=== PATIENT | female | born 1995 | race Caucasian/White ===

== ENCOUNTER 2017-09-19 18:26 | Emergency (ER) | payer OTHER, SELFPAY ==
[2017-09-19 19:15] VITALS: BP 118/77; PULSE 63; RESP 16; TEMP 36.6; O2SAT 98; BMI 38.4
[2017-09-19 19:26] LABS: UTC Influenza A Antigen Negative (Negative); UTC Influenza B Antigen Negative (Negative)
--- NOTE | 2017-09-19 20:15 | HMH.EDUTC ---
[facility] – [place] Disposition Clinical Impression: Viral URI with cough Disposition: Home, Self-Care Condition on Discharge: Good Instructions: DI for Viral Upper Respiratory Infection -- Adult Additional Instructions: * Monitor Temp. Tylenol and/or Ibuprofen as needed. ER if fever is no less than 101 despite alternating Tylenol and Ibuprofen * Encourage fluids, water, Gatorade, powerade, pedialyte if /toddler/or child * Warm salt water gargles for throat irritation *Warm fluids *Sore throat lozenges *Sleep elevated *humidifier or vaporizer Lots of rest Increase fluids, water, Gatorade, powerade *Bromfed may cause drowsiness. Know how it effect you or your child. Before driving, caring for small children or sending your child to school Follow up IMMEDIATELY for new or worsening of symptoms OR no noticeable improvement over the next 48-72 hours. 911 immediately for any life threatening symptoms such as chest pain or difficulty breathing Prescriptions: Brompheniramine/Pseudoephed/Dm [Bromfed DM Cough Syrup 5mL] 10 ml PO Q4H PRN #200 syrup PRN Reason: Cough Referrals: Camilo Wooten MD [Primary Care Provider] - Time of Disposition: 20:25 Medical Decision Making - Medical Records Medical records reviewed: Yes: I reviewed the patient's medical records. Vital Signs: 09/19/17 19:15 Temperature 97.9 F Temperature Source Temporal Artery Scan Pulse Rate [Radial] 63 Respiratory Rate 16 Blood Pressure [Right Arm] 118/77 Blood Pressure Mean [Right Arm] 90 Blood Pressure Source [Right Arm] Automatic Cuff Blood Pressure Position [Right Arm] Sitting 02 Sat by Pulse Oximetry 98 Oxygen Delivery Method Room Air - Lab Data Lab Results 09/19/17 19:26: Influenza Type A Ag Negative, Influenza Type B Ag Negative - Mal Inquiry Pt receiving controlled substance: No Mal was queried for this patient: No [facility] [place] HPI - General Stated complaint: Body aches, sore throat Mode of Arrival: Ambulatory Source of Information: Patient Limitations: No Limitations Description of Symptoms (Recalled from Triage Doc. by RN): c/o body aches, sore throat and chills HEENT Symptoms (Recalled from RN notes): No Resp Symptoms (Recalled from RN notes): No Skin Symptoms (Recalled from RN notes): No MS Symptoms (Recalled from RN notes): No Functional Status (Recalled from RN notes): na - History of Present Illness Provider Complaint: Patient states that her son had the flu last week and now she is having sinus pain and pressure State that she was worried that she may have caught the flu from him so she wanted to come get checked - Related Data Previous Rx's Medication Instructions Recorded Brompheniramine/Pseudoephed/Dm 10 ml PO Q4H PRN #200 syrup 09/19/17 [Bromfed DM Cough Syrup 5mL] Allergies Allergy/AdvReac Type Severity Reaction Status Date / Time penicillin G [PENICILLIN G] Allergy Unknown -- Unverified 08/18/17 14:57 amoxicillin AdvReac Mild NA-NAUSEA/V Unverified 08/18/17 14:57 OMITING - Worker's Comp Is this a Worker's Comp case?: No [facility] History I have reviewed the patient's past medical history: Yes Medical History: Denies:: Cancer, Diabetes Mellitus Type 1, Diabetes Mellitus Type 2, MRSA Amputation: No - *Social History Smoking Status: Current every day smoker Tobacco Type: cigarettes Alcohol Intake: never - Psychiatric History Expresses thoughts of harming self/others: None Suicide Plan Description: No Plan ROS Obtained: Yes All systems reviewed & no additional complaints Physical Exam - General General appearance: alert, in no apparent distress - ENT ENT exam: Present: mucous membranes moist, TM's normal bilaterally, normal external ear exam - Expanded ENT Exam Nasal speculum exam: Bilateral: other (clear drainage from nose) Comment: throat mildly red, irritated no exudate - Respiratory Respiratory exam: Present: normal lung sounds bilaterally. Absent: respiratory
--- NOTE | 2017-09-19 20:19 | ED_ITS ---
[facility] [place] Disposition Clinical Impression: Viral URI with cough Disposition: Home, Self-Care Condition on Discharge: Good Instructions: DI for Viral Upper Respiratory Infection -- Adult Additional Instructions: * Monitor Temp. Tylenol and/or Ibuprofen as needed. ER if fever is no less than 101 despite alternating Tylenol and Ibuprofen * Encourage fluids, water, Gatorade, powerade, pedialyte if infant/toddler/or child * Warm salt water gargles for throat irritation *Warm fluids *Sore throat lozenges *Sleep elevated *humidifier or vaporizer Lots of rest Increase fluids, water, Gatorade, powerade *Bromfed may cause drowsiness. Know how it effect you or your child. Before driving, caring for small children or sending your child to school Follow up IMMEDIATELY for new or worsening of symptoms OR no noticeable improvement over the next 48-72 hours. 911 immediately for any life threatening symptoms such as chest pain or difficulty breathing Prescriptions: Brompheniramine/Pseudoephed/Dm [Bromfed DM Cough Syrup 5mL] 10 ml PO Q4H PRN # 200 syrup PRN Reason: Cough Referrals: Camilo Wooten MD [Primary Care Provider] - Time of Disposition: 20:25 Medical Decision Making - Medical Records Medical records reviewed: Yes: I reviewed the patient's medical records. Vital Signs: 09/19/17 19:15 Temperature 97.9 F Temperature Source Temporal Artery Scan Pulse Rate [Radial] 63 Respiratory Rate 16 Blood Pressure [Right Arm] 118/77 Blood Pressure Mean [Right Arm] 90 Blood Pressure Source [Right Arm] Automatic Cuff Blood Pressure Position [Right Arm] Sitting 02 Sat by Pulse Oximetry 98 Oxygen Delivery Method Room Air - Lab Data Lab Results 09/19/17 19:26: Influenza Type A Ag Negative, Influenza Type B Ag Negative - Mal Inquiry Pt receiving controlled substance: No Mal was queried for this patient: No [facility] [place] HPI - General Stated complaint: Body aches, sore throat Mode of Arrival: Ambulatory Source of Information: Patient Limitations: No Limitations Description of Symptoms (Recalled from Triage Doc. by RN): c/o body aches, sore throat and chills HEENT Symptoms (Recalled from RN notes): No Resp Symptoms (Recalled from RN notes): No Skin Symptoms (Recalled from RN notes): No MS Symptoms (Recalled from RN notes): No Functional Status (Recalled from RN notes): na - History of Present Illness Provider Complaint: Patient states that her son had the flu last week and now she is having sinus pain and pressure State that she was worried that she may have caught the flu from him so she wanted to come get checked - Related Data Previous Rx's Medication Instructions Recorded Brompheniramine/Pseudoephed/Dm 10 ml PO Q4H PRN #200 syrup 09/19/17 [Bromfed DM Cough Syrup 5mL] Allergies Allergy/AdvReac Type Severity Reaction Status Date / Time penicillin G [PENICILLIN G] Allergy Unknown -- Unverified 08/18/17 14:57 amoxicillin AdvReac Mild NA-NAUSEA/V Unverified 08/18/17 14:57 OMITING - Worker's Comp Is this a Worker's Comp case?: No [facility] History I have reviewed the patient's past medical history: Yes Medical History: Denies:: Cancer, Diabetes Mellitus Type 1, Diabetes Mellitus Type 2, MRSA Amputation: No - *Social History Smoking Status: Current every day smoker Tobacco Type: cig
[2017-09-19 20:38] VITALS: BP 112/70; PULSE 87; RESP 16; TEMP 36.8; O2SAT 97
== END 2017-09-19 20:38 | disposition home or self-care (01) ==
PROVIDERS: Emergency Provider Nurse Practitioner; Family Provider Nurse Practitioner Obstetrics & Gynecology; PCP Internal Medicine Adolescent Medicine
DX: J06.9 Acute upper respiratory infection, unspecified (principal); Z88.1 Allergy status to other antibiotic agents; F17.210 Nicotine dependence, cigarettes, uncomplicated
CPT/HCPCS: 87804; 99201

== ENCOUNTER 2017-10-03 18:33 | Emergency (ER) | payer OTHER, SELFPAY ==
[2017-10-03 18:46] VITALS: BP 126/73; PULSE 72; RESP 16; TEMP 36.9; O2SAT 99; BMI 36.6
[2017-10-03 21:16] VITALS: BP 146/95; PULSE 81; RESP 20; TEMP 36.6; O2SAT 99; BMI 36.6
--- NOTE | 2017-10-03 21:54 | HMH.EDUTC ---
[facility] [place] Clinical Impression: Stiffness of neck Disposition: Home, Self-Care Condition on Discharge: Good Instructions: DI for Muscle Spasm Additional Instructions: * Naproxen every 12 hours with meal as needed for pain/inflammation. * Remember you had a toradol shot, similiar anti-inflammatory in clinic. You won't be able to get that prescription until morning. * No additional anti-inflammatories like motrin, aleve, advil with the above amount of ibuprofen. You CAN still take Tylenol every 4 hours as needed if you need something more for pain. * Ice x15-20 mins 3-4 times a day or moist heat x15-20 mins 3-4 times a day to affected area. May notice it starts to help along with these other medications * Muscle relaxer every 8 hours as needed for muscle spasms but remember, it WILL cause drowsiness. You can NOT take it and drive, operate machinary or care for small children * You had norflex in clinic, a muscle relaxer. You won't be able to get that prescription until in the morning. * Keep this area active. No movement leads to more stiffness. However, take it easy too and avoid heavy lifting, pushing, pulling. * Follow up very important. Immediately for new or worsening symptoms and Thursday if no noticeable improvement at all. Some people require physical therapy for this. we have provided you with a list of providers accepting patients. I would encourage you find him a new primary care provider and make an appt JEFFRY as it can take weeks to get a new patient appointment. In the meantime, follow up in the clinic or ER Prescriptions: Cyclobenzaprine HCl [Flexeril 10mg tablet] 10 mg PO Q8HP PRN #12 tab PRN Reason: Muscle Spasm Naproxen 500 mg PO BID #14 tab Time of Disposition: 22:19 Medical Decision Making Vital Signs: 10/03/17 18:46 10/03/17 21:16 10/03/17 22:10 Temperature 98.4 F 97.8 F 98 F Temperature Source Oral Temporal Artery Scan Pulse Rate 87 Pulse Rate [Right Radial] 72 81 Respiratory Rate 16 20 20 Blood Pressure 122/88 Blood Pressure [Right Arm] 126/73 146/95 Blood Pressure Mean [Right Arm] 90 112 Blood Pressure Source [Right Arm] Automatic Cuff Automatic Cuff Blood Pressure Position [Right Arm] Sitting Sitting 02 Sat by Pulse Oximetry 99 99 Oxygen Delivery Method Room Air Room Air Orders (Tests/Meds): ED MEDICATIONS Discontinued Medications Generic Name Dose Route Start Last Admin Trade Name Luis Antonio PRN Reason Stop Dose Admin Ketorolac Tromethamine 60 mg 10/03/17 21:54 10/03/17 22:02 Toradol 60mg/2ml Vial IM 10/03/17 21:55 60 mg ONCE ONE Administration Orphenadrine Citrate 60 mg 10/03/17 21:54 10/03/17 22:02 Norflex 60mg/2ml Vial IM 10/03/17 21:55 60 mg ONCE ONE Administration - Mal Inquiry Pt receiving controlled substance: No - Reevaluation(s) Time: 22:12 Reevaluation #1: Moving around more in room and no longer in tears. Neck remains laterally flexed but improved, approx 10-15 degrees now. It is starting to ease up . Rvwd POC and follow up. [facility] [place] - General Stated complaint: pain in neck Time Seen by Provider: 10/03/17 21:45 Mode of Arrival: Family Vehicle Source of Information: Patient Limitations: No Limitations Description of Symptoms (Recalled from Triage Doc. by RN): PT STATES SHE HAS BEEN HAVING NECK PAIN FOR 3 DAYS. PT DENIES INJURY. HEENT Symptoms (Recalled from RN notes): No Resp Symptoms (Recalled from RN notes): No Skin Symptoms (Recalled from RN notes): No MS Symptoms (Recalled from RN notes): Yes (NECK PAIN) Functional Status (Recalled from RN notes): NA - History of Present Illness Provider Complaint: c/o neck stiffness and right sided pain since waking up Thursday. Immediate knew she had slept wrong. Pain and ROm unchanged since onset despite tylenol, motrin, advil, heating pad, rice pack, ice, icy hot. 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
[2017-10-03 22:10] VITALS: BP 122/88; PULSE 87; RESP 20; TEMP 36.6; O2SAT 99
== END 2017-10-03 22:20 | disposition home or self-care (01) ==
PROVIDERS: Emergency Provider Nurse Practitioner Family; Family Provider Nurse Practitioner Obstetrics & Gynecology; PCP Internal Medicine Adolescent Medicine
DX: M43.6 Torticollis (principal)
CPT/HCPCS: 96372; 99201

== ENCOUNTER → 2018-02-23 13:15 | Outpatient (REF) | payer OTHER, SELFPAY ==
[2018-02-23 18:53] LABS: Basophils % 0.4 % (0.1-2.0); Eosinophils # 0.2 K/mm3 (0.0-0.4); Eosinophils % 2.4 % (0.1-12.0); Hematocrit 42.9 % (37.0-47.0); Hemoglobin 13.1 g/dL (12.2-16.2); Lymphocytes # 1.7 K/mm3 (0.7-4.5); Lymphocytes % 19.1 K/mm3 (10-50); Mean Corpuscular HGB Conc 30.6 g/dL (31.8-35.4); Mean Corpuscular Hemoglobin 26.1 pg (27.0-31.2); Mean Corpuscular Volume 85.3 fl (81-99); Mean Platelet Volume 8.7 fl (7.4-10.4); Monocytes # 0.5 K/mm3 (0.1-1.0); Monocytes % 5.1 % (1.7-9.3); Neutrophils # 6.7 K/mm3 (1.8-7.8); Neutrophils % 73.1 % (37.0-80.0); Platelet Count 243 K/mm3 (142-424); Red Blood Count 5.03 M/mm3 (4.20-5.40); Red Cell Distribution Width 13.5 % (11.5-17.5); White Blood Count 9.1 K/mm3 (4.8-10.8)
[2018-02-23 20:00] LABS: Alanine Aminotransferase 20 U/L (12-78); Albumin Level 3.8 gm/dL (3.4-5.0); Albumin/Globulin Ratio 1.2 (1.1-1.8); Alkaline Phosphatase 121 U/L (46-116); Anion Gap 16.5 mEq/L (5-15); Aspartate Amino Transferase 18 U/L (15-37); Bilirubin,Total 0.2 mg/dL (0.2-1.0); Blood Urea Nitrogen 10 mg/dL (7-18); Calcium 8.6 mg/dL (8.5-10.1); Carbon Dioxide 21 mmol/L (21.0-32.0); Chloride 106 mmol/L (98-107); Chol/HDL Ratio 5.1 (1-3.5); Cholesterol 164 mg/dL (140-200); Creatinine,Serum 0.88 mg/dL (0.55-1.02); Estimated Glomerular Filt Rate 80 ml/min (>60); GFR (African American) 97 ML/MIN (>60); Globulin 3.3 gm/dl (1.3-3.2); Glucose 129 mg/dL (74-106); HDL Cholesterol 32 mg/dL (29-89); LDL Cholesterol 115 mg/dL (0-130); Potassium 3.5 mmoL/L (3.5-5.1); Sodium 140 mmol/L (136-145); T4 (Thyroxine) 8.2 ug/dl (4.7-13.3); Thyroid Stimulating Hormone 0.98 uIU/ml (0.358-3.740); Total Protein,Serum 7.1 gm/dL (6.4-8.2); Triglycerides 85 mg/dL (30-200); VLDL Cholesterol 17 mg/dL (0-40)
[2018-02-23 20:45] LABS: Hemoglobin A1C 5.3 % (0.0-7.0)
[2018-02-25 13:54] LABS: Vitamin D 25 Hydroxy 33.4 ng/mL (30.0-100.0)
== END ==
LOC: LAB 13:15
PROVIDERS: Visit Provider Nurse Practitioner Family
DX: R73.09 Other abnormal glucose (principal); R53.83 Other fatigue
CPT/HCPCS: 80053; 80061; 82652; 83036; 84436; 84443; 85025

== ENCOUNTER 2019-10-10 19:29 | Inpatient (IN) ==
[2019-10-10 19:51] LABS: Basophils % 0.2 % (0.1-2.0); Eosinophils # 0.1 K/mm3 (0.0-0.4); Eosinophils % 0.6 % (0.1-12.0); Hematocrit 42.8 % (37.0-47.0); Hemoglobin 13.7 g/dL (12.2-16.2); Lymphocytes # 0.8 K/mm3 (0.7-4.5); Lymphocytes % 4.5 % (10-50); Mean Corpuscular HGB Conc 32.1 g/dL (31.8-35.4); Mean Corpuscular Volume 84.4 fl (81-99); Monocytes # 0.3 K/mm3 (0.1-1.0); Monocytes % 1.8 % (1.7-9.3); Neutrophils % 92.9 % (37.0-80.0); Platelet Count 475 K/mm3 (142-424); Red Blood Count 5.07 M/mm3 (4.20-5.40); Red Cell Distribution Width 13.7 % (11.5-17.5); White Blood Count 17.3 K/mm3 (4.8-10.8)
[2019-10-10 20:06] LABS: Alanine Aminotransferase 41 U/L (9-52); Albumin Level 3.3 g/dL (3.4-5.0); Albumin/Globulin Ratio 0.6 (1.1-1.8); Alkaline Phosphatase 101 U/L (46-116); Anion Gap 17.2 mEq/L (5-15); Aspartate Amino Transferase 33 U/L (15-37); Bilirubin,Total 0.4 mg/dL (0.2-1.0); Blood Urea Nitrogen 9 mg/dL (7-18); Calcium 9.9 mg/dL (8.5-10.1); Carbon Dioxide 25 mmol/L (21.0-32.0); Chloride 100 mmol/L (98-107); Globulin 5.8 gm/dl (1.3-3.2); Glucose 170 mg/dL (74-106); Sodium 138 mmol/L (137-145); Total Protein,Serum 9.1 g/dL (6.4-8.2)
[2019-10-10 20:08] LABS: Eosinophils % 1 % (0-3); Lymphocytes % 3 % (10-50); Monocytes % 2 % (2-9); Neutrophils % 94 % (42-76); Total Cells Counted 100
[2019-10-10 20:09] LABS: RBC Morphology Normal
[2019-10-10 20:18] LABS: C-Reactive Protein 24.1 mg/dL (0.0-0.9)
--- NOTE | 2019-10-10 20:36 | Emergency Department Note ---
ED Disposition Clinical Impression: IVDU (intravenous drug user), SIRS (systemic inflammatory response syndrome) CAP (community acquired pneumonia) Qualifiers: Laterality: right Lung location: upper lobe of lung Qualified Code(s): J18.9 - Pneumonia, unspecified organism Disposition: Admitted as Observation Condition on Discharge: Serious Referrals: Provider,Referral, [Primary Care Provider] - - Critical Care Critical Care Time: No Attestation: On 10/10/19, the high probability of a clinically significant, sudden or life threatening deterioration of the following system(s) required my full and direct attention, intervention and personal management. The time I documented below is in addition to time spent performing reported procedures but includes the following listed in this critical care notation. Medical Decision Making - Medical Records Medical records reviewed: Yes: I reviewed the patient's medical records. - Mal Inquiry Pt receiving controlled substance: No Vital Signs: 10/10/19 19:29 10/10/19 19:52 10/10/19 20:37 Temperature 98.1 F 98.0 F Temperature Source Oral Oral Pulse Rate 114 H Pulse Rate [Left Radial] 114 H 107 H Respiratory Rate 16 24 Blood Pressure [Right Arm] 115/69 131/70 Blood Pressure Mean [Right Arm] 84 90 Blood Pressure Source [Right Arm] Automatic Cuff Blood Pressure Position [Right Arm] Sitting 02 Sat by Pulse Oximetry 100 100 Oxygen Delivery Method Room Air Room Air 10/10/19 21:04 Temperature Temperature Source Pulse Rate 116 H Pulse Rate [Left Radial] Respiratory Rate Blood Pressure [Right Arm] Blood Pressure Mean [Right Arm] Blood Pressure Source [Right Arm] Blood Pressure Position [Right Arm] 02 Sat by Pulse Oximetry Oxygen Delivery Method - Lab Data Lab results reviewed: Yes: I reviewed the patient's lab results. Lab Results 10/10/19 19:30: WBC 17.3 H, RBC 5.07, Hgb 13.7, Hct 42.8, MCV 84.4, MCH 27.1, MCHC 32.1, RDW 13.7, Plt Count 475 H, MPV 8.0, Neut % (Auto) 92.9 H, Lymph % (Auto) 4.5 L, Pine % (Auto) 1.8, Eos % (Auto) 0.6, Baso % (Auto) 0.2, Neut # (Auto) 16.0 H, Lymph # (Auto) 0.8, Pine # (Auto) 0.3, Eos # (Auto) 0.1, Baso # (Auto) 0.0, Total Counted 100, Neutrophils % (Manual) 94 H, Lymphocytes % (Manua l) 3 L, Monocytes % (Manual) 2, Eosinophils % (Manual) 1, Platelet Estimate Marked increase, RBC Morphology Normal 10/10/19 19:30: Sodium 138, Potassium 4.2, Chloride 100, Carbon Dioxide 25, Anion Gap 17.2 H, BUN 9, Creatinine 0.84, Estimated Creat Clear 133, Estimated GFR 83, Est GFR ( Amer) 101, Glucose 170 H, Calcium 9.9, Total Bilirubin 0.4, AST 33, ALT 41, Alkaline Phosphatase 101, Troponin I < 0.02, C-Reactive Protein 24.1 H, Total Protein 9.1 H, Albumin 3.3 L, Globulin 5.8 H, Album in/Globulin Ratio 0.6 L 10/10/19 19:30: Lactate 1.1 10/10/19 19:30: ESR 25 H 10/10/19 19:30: Serum HCG, Qual Negative 10/10/19 20:00: Urine Color Yellow, Urine Appearance Clear, Urine pH 6.5, Ur Specific [place] 1.025, Urine Protein Trace, Urine Glucose (UA) 1+, Urine Ketones Negative, Urine Blood 2+, Urine Nitrate Positive, Urine Bilirubin Negative, Urine Urobilinogen 0.2, Ur Leukocyte Esterase Trace, Urine RBC 3-5, Urine WBC 10-20, Ur Squamous Epith Cells Occasional, Urine Bacteria 3+ Result diagrams: 10/10/19 19:30 10/10/19 19:30 Orders (Tests/Meds): ED MEDICATIONS Generic Name Dose Route Start Last Admin Trade Name Yanickq PRN Reason Stop Dose Admin Sodium Chloride 1,000 mls @ 999 mls/hr 10/10/19 19:45 10/10/19 19:49 Sod Chlor 0.9% 1000ml Bag IV 10/10/19 20:45 999 mls/hr .Q1H1M TRISH Administration Metronidazole 500 mg in 100 mls @ 100 mls/hr 10/10/19 21:45 10/10/19 22:21 Flagyl 500mg/100ml Ivpb IV 10/24/19 21:44 100 mls/hr Q8H TRISH Administration Protocol Cefepime HCl 1 gm/ Sodium 50 mls @ 100 mls/hr 10/10/19 21:45 10/10/19 21:55 Chloride IV 10/24/19 21:44 100 mls/hr Q8H TRISH Administration Protocol Sodium Chloride 1,000 mls @ 999 mls/hr 10/10/19 22:00 10/10/19 21:59 Sod Chlor 0.9% 1000ml Bag IV 10/10/19 23:00 999 mls/hr .Q1H1M TRISH Administration Discontinued Medications Generic Name Dose Route Start Last Admin Trade Name Freq PRN Reason Stop Dose Admin Albuterol/Ipratropium 3 ml 10/10/19 20:55 10/10/19 21:09 Duoneb 3ml Neb IH 10/10/19 20:56 3 ml ONCE ONE Administration Vancomycin HCl 1,750 mg/ 250 mls @ 125 mls/hr 10/10/19 21:43 10/10/19 23:46 Sodium Chloride IV 10/10/19 23:42 125 mls/hr ONCE ONE Administration Ioversol 70 ml 10/10/19 21:25 10/10/19 21:27 Rad-Optiray 350 100ml Vial IV 10/10/19 21:26 70 ml ONCE ONE Administration Protocol Methylprednisolone Sodium Succinate 125 mg 10/10/19 19:41 10/10/19 19:49 Solu-Medrol 125mg/2ml Vial IV 10/10/19 19:42 125 mg ONCE ONE Administration Sodium Chloride 40 ml 10/10/19 21:25 10/10/19 21:27 Rad-Ns 50ml Vial IV 10/10/19 21:26 40 ml ONCE ONE Administration Sodium Chloride 10 ml 10/10/19 21:25 10/10/19 21:27 Rad-Saline Flush 10ml Syringe IV 10/10/19 21:26 10 ml ONCE ONE Administration ORDERS Category Date Time Status CT Chest w/PE protocol [CT angio chest] Stat Cat Scan 10/10/19 20:35 Taken XR chest 2V Stat Exams 10/10/19 19:41 Taken Drug Sreen (Blood or Serum) Stat Lab 10/10/19 23:51 Ordered Troponin I Q3H Lab 10/11/19 01:45 Ordered Blood Culture Stat Micro 10/10/19 19:30 Received Urine Culture Stat Micro 10/10/19 20:00 Received - Radiology Data #1 Image(s): Chest Image Reviewed: Yes I reviewed the patient's radiology image Preliminary Findings: Abnormal (cxr rt upper lobe ) - ECG Data Tracing #1 Normal Sinus Rhythm: Yes Ischemic changes: non-specific ST-T wave changes - Physician Consults Physician Consulted: mahogany Reason -: Admission Chest Pain HPI - General Chief Complaint: Chest Pain Stated Complaint: chest pain Time Seen by Provider: 10/10/19 20:00 Mode of Arrival: Ambulatory Source of Information: Patient, Relative, Medical Record Limitations: No Limitations Description of Symptoms (Recalled from ER Triage Doc. by RN): chest pain with non productive cough and shortness of breath for 3-4 days. patient states she has hx of IVDA heroin 4 days ago - History of Present Illness HPI narrative: ivdu over the last few weeks and last use heroin 4 days ago - pt with no hemoptysis - no fever or rash MD complaint: chest pain Onset (ago): day(s) Duration: intermittent Activity at onset: during rest Pain location: right chest Severity: moderate Quality: sharp Context: other (ivdu) Treatments prior to or on arrival for Cardiac Chest Pain: none - JULISSA Score for Non-Stemi Age of Patient: <30 years old Heart Rate: 110-149 bpm Systolic Blood Pressure: 100-119 mmHg Serum Creatinine: 0.80-1.19 mg/dl CHF [place] Class: I-No CHF Other Risk Factors: None Non-Stemi Risk Score: 74 - Related Data On Oral Contraceptives: No Home Medications Medication Instructions Recorded Confirmed No Known Home Medications 10/10/19 10/10/19 Allergies Allergy/AdvReac Type Severity Reaction Status Date / Time penicillin G [PENICILLIN G] Allergy Unknown -- Verified 10/10/19 19:38 codeine Allergy Verified 10/10/19 19:38 amoxicillin AdvReac Mild NA-NAUSEA/V Verified 10/10/19 19:38 OMITING [facility] History - Hepatitis A Screen Drug use history?: Yes High risk sexual behaviors?: No History of sexually transmitted infection?: No Currently employed?: No Childcare worker?: No Do you have indoor plumbing?: Yes Do you have electricity?: Yes Attestation statement:: This patient has been screened for Hepatitis A risk factors. I have reviewed the patient's past medical history: Yes Medical History: Reports:: Anxiety, Gastroesophageal Reflux Disease(GERD), Kidney Stones Denies:: Cancer, Diabetes Mellitus Type 1, Diabetes Mellitus Type 2, Hypertension, MRSA Other Surgeries: Yes: No Previous Surgery, Amputation: No Fractures: No Comment: Kidney Stone removal - Social History Smoking Status: Current every day smoker Tobacco Type: cigarettes # Packs/Day (cigarettes): 1 Alcohol Intake: never Substance Use Type: heroin Last Used Substance: days (ago) Occupational Status: other Housing: apartment Household Members: children - Psychiatric History Pschychiatric History:: Reports:: Anxiety Family Hx:: Diabetes, Cancer, Hypertension, Asthma, Heart Attack ROS Obtained: Yes All systems reviewed & no additional complaints - Constitutional Constitutional: Denies fever(s) - Eyes Eyes: Denies change in vision - ENT Ears, Nose, Mouth, and Throat: Denies sore throat - Cardiovascular Cardiovascular: Denies chest pain - Respiratory Respiratory: No cough, Yes dyspnea - Genitourinary Female Genitourinary: Denies hematuria - Musculoskeletal Musculoskeletal: Denies joint pain - Integumentary/Breasts Skin/Breast: Denies rash - Neurologic Neurologic: Denies seizure-like activity Physical Exam - General General appearance: alert - Head Head exam: normocephalic - Eye Eye exam: Present: PERRL, EOMI - ENT ENT exam: Present: mucous membranes moist - Neck Neck exam: Present: trachea midline - Respiratory Respiratory exam: Present: normal lung sounds bilaterally. Absent: respiratory distress - Cardiovascular Cardiovascular exam: Present: regular rate. Absent: systolic murmur, rubs, gallop - Abdominal Exam Abdominal exam: Present: soft - Extremities Exam Extremities exam: Absent: calf tenderness - Neurological Exam Neurological exam: Present: alert, oriented X3, CN II-XII intact - Psychiatric Psychiatric exam: Present: normal affect - Skin Skin exam: Absent: rash
[2019-10-10 21:35] LABS: Microscopic, Urine URINE MICROSCOPIC (MICROSCOPIC)
[2019-10-10 21:38] LABS: Appearance,Urine CLEAR (Clear); Bilirubin,Urine Negative (Negative); Blood, Urine 2+ (Negative); Color,Urine YELLOW (Yellow); Glucose,Urine (UA) 1+ (Negative); Ketones,Urine Negative (Negative); Leukocyte Esterase,Urine TRACE (Negative); PH,Urine 6.5 (5.0-8.5); Protein,Urine TRACE (Negative); Specific Gravity, Urine 1.025 (1.005-1.030); Urobilinogen,Urine 0.2 EU/dl (0.2)
[2019-10-10 21:48] LABS: Bacteria,Urine 3+ /lpf; Squamous Epithelial Cell,Urine Occasional #/hpf (0-5)
[2019-10-11 07:03] LABS: Basophils % 0.1 % (0.1-2.0); Eosinophils # 0.2 K/mm3 (0.0-0.4); Eosinophils % 1.3 % (0.1-12.0); Hematocrit 35.6 % (37.0-47.0); Lymphocytes % 5.7 % (10-50); Mean Corpuscular HGB Conc 33.4 g/dL (31.8-35.4); Mean Corpuscular Volume 84.6 fl (81-99); Mean Platelet Volume 7.8 fl (7.4-10.4); Monocytes # 0.3 K/mm3 (0.1-1.0); Monocytes % 1.9 % (1.7-9.3); Neutrophils # 15.6 K/mm3 (1.8-7.8); Platelet Count 422 K/mm3 (142-424); Red Blood Count 4.21 M/mm3 (4.20-5.40); Red Cell Distribution Width 13.4 % (11.5-17.5); White Blood Count 17.2 K/mm3 (4.8-10.8)
--- NOTE | 2019-10-11 07:14 | Pharmacy Consult Notes ---
[facility] Pharmacy VTE Monitoring - Patient Demographics Admission date: 10/10/19 Report Date: 10/11/19 Time: 07:13 Allergies/Adverse Reactions: Patient Allergies penicillin G [PENICILLIN G] Allergy (Unknown, Verified 10/10/19 19:38) -- codeine Allergy (Verified 10/10/19 19:38) amoxicillin Adverse Reaction (Mild, Verified 10/10/19 19:38) NA-NAUSEA/VOMITING Height: 1.57 m Weight: 62.823 kg Patient Problems: Current Active Problems CAP (community acquired pneumonia) (Acute) IVDU (intravenous drug user) (Acute) SIRS (systemic inflammatory response syndrome) (Acute) - VTE Risk Labs: VTE Related Lab Results Hgb 13.7 g/dL (12.2-16.2) 10/10/19 19:30 Hct 42.8 % (37.0-47.0) 10/10/19 19:30 Plt Count 475 K/mm3 (142-424) H 10/10/19 19:30 BUN 9 mg/dL (7-18) 10/10/19 19:30 Creatinine 0.84 mg/dL (0.55-1.02) 10/10/19 19:30 Estimated Creat Clear 133 mL/min (50-200) 10/10/19 19:30 VTE Score: 7 VTE Risk Level: Moderate Risk - Prophylaxis VTE Prophylaxis Ordered?: Yes Types of VTE Prophylaxis: TEDS Knee High Location of Applied Device: Bilateral Lower Extremeties
[2019-10-11 07:16] LABS: Anion Gap 13.9 mEq/L (5-15)
[2019-10-11 07:18] LABS: Hemoglobin 11.9 g/dL (12.2-16.2)
--- NOTE | 2019-10-11 07:21 | History & Physical Report ---
*Admission Date: 10/10/19 *Chief complaint: chest pain, SOA, cough *History of present illness: Ms. Singh is a 24-year-old female who presented to the ER yesterday with 1 week of worsening cough, shortness of breath, fever at home. States she began using IV drugs over the past 1 to 2 weeks and has been very clean about it. She states that she is had worsening cough and fatigue during the same time span with chills and sweats at home but did not check her temperature with a thermometer. Upon arrival to the ER she was found to be tachycardic, have an elevated white count, and CAT scan with cavitary lesions in her right lung concerning for pneumonia. This qualified for sepsis criteria. She was admitted to medicine for further management. This morning, patient is pleasant and sitting comfortably in bed on interview. Stable on room air. Not dyspneic on interview. States she is had a cough that is not very productive. Did have some vomiting and some loose stools overnight but is not having significant withdrawal symptoms per her report. States she has not used in about 3 to 4 days. Was using heroin IV. Has a remote history of opioid abuse in her late teens but has been clean for 6 to 7 years per her report. States she fell in with the "wrong crowd" as of late and made bad choices. She also makes a point to state that she educated herself on using cleanly and used clean needles every time, did not share needles, use sterile water, used to clean continence, and only peripheral veins. Afebrile overnight, hemodynamically stable. Remains tachycardic with no events on telemetry. Echo obtained this morning, report pending [facility] History I have reviewed the patient's past medical history: Yes Medical History: Reports:: Anxiety, Gastroesophageal Reflux Disease(GERD), Hypertension, Kidney Stones Denies:: Cancer, Diabetes Mellitus Type 1, Diabetes Mellitus Type 2, MRSA *Have you ever received a pneumonia vaccine?: No *Have you received a flu vaccine this season?: No Other Surgeries: Yes: No Previous Surgery, (x1), Other (ESWL) Amputation: No Fractures: No - *Social History Educational Level: Completed GED/General Educational Development Smoking Status: Current some day smoker Tobacco Type: cigarettes # Packs/Day (cigarettes): 1 Alcohol Intake: never Substance Use Type: marijuana, heroin Last Used Substance: days (ago) *Occupational Status:: unemployed Housing: house Household Members: spouse *Travel in the last 8 weeks: None - Psychiatric History Pschychiatric History:: Reports:: Anxiety Family Hx:: Coronary Artery Disease, Diabetes, Heart Attack, Hyperlipidemia, Hypertension, Thyroid Disorder Review of Systems - Review of Systems Review of systems:: pertinent systems reviewed and negative unless documented below (14pt ROS performed, pertinent positives and negatives as listed in HPI) - *Neurologic Denies seizure-like activity Meds Home Medications Medication Instructions Recorded Confirmed Type No Known Home Medications 10/10/19 10/10/19 History Allergies Allergy/AdvReac Type Severity Reaction Status Date / Time penicillin G [PENICILLIN G] Allergy Unknown -- Verified 10/10/19 19:38 codeine Allergy Verified 10/10/19 19:38 amoxicillin AdvReac Mild NA-NAUSEA/V Verified 10/10/19 19:38 OMITING Exam Vital signs and Labs for Last 24 Hours: Temp Pulse Resp BP Pulse Ox 98.1 F 99 H 18 128/75 97 10/11/19 04:00 10/11/19 04:00 10/11/19 04:00 10/11/19 04:00 10/11/19 04:00 Laboratory Results - last 24 hr 10/10/19 19:30: WBC 17.3 H, RBC 5.07, Hgb 13.7, Hct 42.8, MCV 84.4, MCH 27.1, MCHC 32.1, RDW 13.7, Plt Count 475 H, MPV 8.0, Neut % (Auto) 92.9 H, Lymph % (Auto) 4.5 L, [place] % (Auto) 1.8, Eos % (Auto) 0.6, Baso % (Auto) 0.2, Neut # (Auto) 16.0 H, Lymph # (Auto) 0.8, [place] # (Auto) 0.3, Eos # (Auto) 0.1, Baso # (Auto) 0.0, Total Counted 100, Neutrophils % (Manual) 94 H, Lymphocytes % (Manual) 3 L, Monocytes % (Manual) 2, Eosinophils % (Manual) 1, Platelet Estimate Marked increase, RBC Morphology Normal 10/10/19 19:30: Sodium 138, Potassium 4.2, Chloride 100, Carbon Dioxide 25, Anion Gap 17.2 H, BUN 9, Creatinine 0.84, Estimated Creat Clear 133, Estimated GFR 83, Est GFR ( Amer) 101, Glucose 170 H, Calcium 9.9, Total Bilirubin 0.4, AST 33, ALT 41, Alkaline Phosphatase 101, Troponin I < 0.02, C-Reactive Protein 24.1 H, Total Protein 9.1 H, Albumin 3.3 L, Globulin 5.8 H, Albumin/Globulin Ratio 0.6 L 10/10/19 19:30: Lactate 1.1 10/10/19 19:30: ESR 25 H 10/10/19 19:30: Serum HCG, Qual Negative 10/10/19 20:00: Urine Color Yellow, Urine Appearance Clear, Urine pH 6.5, Ur Specific [place] 1.025, Urine Protein Trace, Urine Glucose (UA) 1+, Urine Ketones Negative, Urine Blood 2+, Urine Nitrate Positive, Urine Bilirubin Negative, Urine Urobilinogen 0.2, Ur Leukocyte Esterase Trace, Urine RBC 3-5, Urine WBC 10-20, Ur Squamous Epith Cells Occasional, Urine Bacteria 3+ 10/11/19 06:55: WBC 17.2 H, RBC 4.21, Hgb 11.9 L D, Hct 35.6 L, MCV 84.6, MCH 28.3, MCHC 33.4, RDW 13.4, Plt Count 422, MPV 7.8, Neut % (Auto) 91.0 H, Lymph % (Auto) 5.7 L, [place] % (Auto) 1.9, Eos % (Auto) 1.3, Baso % (Auto) 0.1, Neut # (Auto) 15.6 H, Lymph # (Auto) 1.0, [place] # (Auto) 0.3, Eos # (Auto) 0.2, Baso # (Auto) 0.0 I & O for Last 24 hours: Intake & Output 10/08/19 10/09/19 10/10/19 10/11/19 23:59 23:59 23:59 23:59 Intake Total 1999 Balance 1999 Weight 81.647 kg 62.823 kg - Constitutional no acute distress, average body habitus - *Routine HEENT Exam Head: Present: normocephalic Eye: Present: EOMI, PERRL ENT: Present: mucous membranes moist - *Routine Neck Exam Present: supple. Absent: lymphadenopathy - *Routine Respiratory Exam Present: crackles (Faint right lung field best heard mid axillary line, otherwise surprisingly clear). Absent: accessory muscle use, rhonchi, wheezes - *Routine Cardiovascular Exam Present: RRR, Normal S1, Normal S2. Absent: murmur - *Routine Abdominal Exam Present: soft, normoactive bowel sounds, tenderness (Diffuse tenderness, positive CVA tenderness bilaterally) - *Routine Extremities Exam Absent: cyanosis, clubbing, edema Comments: Numerous track gardner on bilateral forearms and hands with ecchymoses. 3-4 bruises and lesions on bilateral lower legs. No injection gardner on neck or upper arm/leg - *Routine Skin Exam Present: warm. Absent: rash Comments: See extremity exam - *Routine Neurological Exam Present: alert, oriented X3 Assessment and Plan (1) Sepsis Current visit: Yes Status: Acute Category: Medical Code(s): A41.9 - Sepsis, unspecified organism (2) IVDU (intravenous drug user) Current visit: Yes Status: Acute Category: Social Hx Code(s): F19.90 - Other psychoactive substance use, unspecified, uncomplicated (3) Cavitary lesion of lung Current visit: Yes Status: Acute Category: Medical Code(s): J98.4 - Other disorders of lung (4) Heroin abuse Current visit: Yes Status: Acute Category: Medical Code(s): F11.10 - Opioid abuse, uncomplicated - Assessment and plan all Dx Assessment and Plan for all problems:: 24-year-old female with presentation consisting of fever at home, not confirmed in the ER, shortness of breath, cough, finding of sepsis on initial work-up and cavitary lung lesion. She is a IV drug user with recent use over the past 1 to 2 weeks. Has 2 minor criteria for [place] criteria. Echo obtained today, formal read pending however preliminary shows no valvular vegetations and has no stigmata on exam of endocarditis. No murmur on exam either. Elevated inflammatory markers, elevated white count, culture still pending at this time. Current diagnosis is sepsis due to community-acquired pneumonia however differential still consists of potential endocarditis and substance abuse with withdrawal symptoms. -Initiated on empiric antibiotics consisting of vancomycin, cefepime, Flagyl in the setting of having a penicillin allergy. - Not requiring supplemental oxygen at this time, saturation greater than 92% while awake if needs oxygen or greater than 88% while asleep. -Regular diet -Monitoring for withdrawal symptoms -Monitor on telemetry overnight however no ectopic beats or arrhythmias, will DC telemetry -Blood and urine culture pending -Given concern for UTI and CVA tenderness, CT abdomen pelvis pending - Potential transfer in the setting of needing ID consult and potential ongoing evolving lung infection. -Patient clinically stable this morning, condition remains guarded, prognosis fair.
[2019-10-11 07:31] LABS: Calcium 8.9 mg/dL (8.5-10.1)
[2019-10-11 07:46] LABS: Lymphocytes % 8 % (10-50); Monocytes % 1 % (2-9); Neutrophils % 90 % (42-76); RBC Morphology Normal; Total Cells Counted 100
--- NOTE | 2019-10-11 08:06 | Pharmacy Consult Notes ---
- Pharmacy Consult Date: 10/11/19 Time: 08:06 Referring provider: DR. REBOLLEDO Reason for Consult:: VANCOMYCIN DOSING Allergies and ADEs:: Allergies Allergy/AdvReac Type Severity Reaction Status Date / Time penicillin G [PENICILLIN G] Allergy Unknown -- Verified 10/10/19 19:38 codeine Allergy Verified 10/10/19 19:38 amoxicillin AdvReac Mild NA-NAUSEA/V Verified 10/10/19 19:38 OMITING Home Medications:: Home Medications Medication Instructions Recorded Confirmed Type No Known Home Medications 10/10/19 10/10/19 History Height: 1.57 m Weight: 62.823 kg Laboratory Results:: Laboratory Results - last 24 hr 10/10/19 19:30: WBC 17.3 H, RBC 5.07, Hgb 13.7, Hct 42.8, MCV 84.4, MCH 27.1, MCHC 32.1, RDW 13.7, Plt Count 475 H, MPV 8.0, Neut % (Auto) 92.9 H, Lymph % (Auto) 4.5 L, [place] % (Auto) 1.8, Eos % (Auto) 0.6, Baso % (Auto) 0.2, Neut # (Auto) 16.0 H, Lymph # (Auto) 0.8, [place] # (Auto) 0.3, Eos # (Auto) 0.1, Baso # (Auto) 0.0, Total Counted 100, Neutrophils % (Manual) 94 H, Lymphocytes % (Manual) 3 L, Monocytes % (Manual) 2, Eosinophils % (Manual) 1, Platelet Estimate Marked increase, RBC Morphology Normal 10/10/19 19:30: Sodium 138, Potassium 4.2, Chloride 100, Carbon Dioxide 25, Anion Gap 17.2 H, BUN 9, Creatinine 0.84, Estimated Creat Clear 133, Estimated GFR 83, Est GFR ( Amer) 101, Glucose 170 H, Calcium 9.9, Total Bilirubin 0.4, AST 33, ALT 41, Alkaline Phosphatase 101, Troponin I < 0.02, C-Reactive Protein 24.1 H, Total Protein 9.1 H, Albumin 3.3 L, Globulin 5.8 H, Albumin/Globulin Ratio 0.6 L 10/10/19 19:30: Lactate 1.1 10/10/19 19:30: ESR 25 H 10/10/19 19:30: Serum HCG, Qual Negative 10/10/19 20:00: Urine Color Yellow, Urine Appearance Clear, Urine pH 6.5, Ur Specific [place] 1.025, Urine Protein Trace, Urine Glucose (UA) 1+, Urine Ketones Negative, Urine Blood 2+, Urine Nitrate Positive, Urine Bilirubin Negative, Urine Urobilinogen 0.2, Ur Leukocyte Esterase Trace, Urine RBC 3-5, Urine WBC 10-20, Ur Squamous Epith Cells Occasional, Urine Bacteria 3+ 10/11/19 06:55: WBC 17.2 H, RBC 4.21, Hgb 11.9 L D, Hct 35.6 L, MCV 84.6, MCH 28.3, MCHC 33.4, RDW 13.4, Plt Count 422, MPV 7.8, Neut % (Auto) 91.0 H, Lymph % (Auto) 5.7 L, [place] % (Auto) 1.9, Eos % (Auto) 1.3, Baso % (Auto) 0.1, Neut # (Auto) 15.6 H, Lymph # (Auto) 1.0, [place] # (Auto) 0.3, Eos # (Auto) 0.2, Baso # (Auto) 0.0, Total Counted 100, Neutrophils % (Manual) 90 H, Lymphocytes % (Manual) 8 L, Atypical Lymphs % 1.0, Monocytes % (Manual) 1 L, Platelet Estimate Slight increase, RBC Morphology Normal 10/11/19 06:55: Sodium 146 H, Potassium 3.9, Chloride 112 H, Carbon Dioxide 24, Anion Gap 13.9, BUN 7, Creatinine 0.70, Estimated Creat Clear 123, Estimated GFR 103, Est GFR ( Amer) 124 D, Glucose 168 H, Calcium 8.9 D 10/11/19 06:55: Troponin I < 0.02 Medical History: Reports:: Anxiety, Gastroesophageal Reflux Disease(GERD), Hypertension, Kidney Stones Denies:: Cancer, Diabetes Mellitus Type 1, Diabetes Mellitus Type 2, MRSA Assessment and Plan (1) Sepsis Current visit: Yes Status: Acute Category: Medical Code(s): A41.9 - Sepsis, unspecified organism (2) IVDU (intravenous drug user) Current visit: Yes Status: Acute Category: Social Hx Code(s): F19.90 - Other psychoactive substance use, unspecified, uncomplicated - Assessment and plan all Dx Assessment and Plan for all problems:: BASED ON PATIENT'S FACTORS, RECOMMEND VANCOMYCIN 1250 MG Q12H AT THIS TIME. PATIENT RECEIVED VANCOMYCIN 1750 MG IN ER OVERNIGHT. PATIENT ALSO RECEIVING CEFEPIME AND FLAGYL.
--- NOTE | 2019-10-11 11:40 | Discharge Summary ---
General - General Admission date:: 10/10/19 Discharge date: 10/11/19 HPI HPI: Ms. Singh is a 24-year-old female who presented to the ER yesterday with 1 week of worsening cough, shortness of breath, fever at home. States she began using IV drugs over the past 1 to 2 weeks and has been very clean about it. She states that she is had worsening cough and fatigue during the same time span with chills and sweats at home but did not check her temperature with a thermometer. Upon arrival to the ER she was found to be tachycardic, have an elevated white count, and CAT scan with cavitary lesions in her right lung concerning for pneumonia. This qualified for sepsis criteria. She was admitted to medicine for further management. This morning, patient is pleasant and sitting comfortably in bed on interview. Stable on room air. Not dyspneic on interview. States she is had a cough that is not very productive. Did have some vomiting and some loose stools overnight but is not having significant withdrawal symptoms per her report. States she has not used in about 3 to 4 days. Was using heroin IV. Has a remote history of opioid abuse in her late teens but has been clean for 6 to 7 years per her report. States she fell in with the "wrong crowd" as of late and made bad choices. She also makes a point to state that she educated herself on using cleanly and used clean needles every time, did not share needles, use sterile water, used to clean continence, and only peripheral veins. Afebrile overnight, hemodynamically stable. Remains tachycardic with no events on telemetry. Echo obtained this morning, report pending Hospital Course Hospital Course: Patient admitted with broad-spectrum empiric antibiotics for sepsis and cavitary pneumonia with initial suspicion for endocarditis. Hemodynamically stable on telemetry overnight. Some mild nausea and emesis overnight but no significant withdrawal symptoms. Pleasant on interview this morning. Blood cultures and urine culture still pending. Patient accepted to [place] for transfer. CT abdomen pelvis not obtained prior to transfer. Echo obtained, when report finalized, will plan to send to [place]. Medically stable for transfer to higher level of care. Would benefit from infectious disease consultation and substance abuse counseling. Further management per [facility]. Objective Vital signs: Temp Pulse Resp BP Pulse Ox 98.2 F 90 16 119/74 100 02/11/20 07:58 10/11/19 08:00 10/11/19 07:58 10/11/19 07:58 10/11/19 07:58 Narrative: See HPI for exam as they were performed same day Results Labs on day of discharge: Labs from last 24 hours 10/11/19 10/11/19 10/11/19 06:55 06:55 06:55 WBC 17.2 H RBC 4.21 Hgb 11.9 L D Hct 35.6 L MCV 84.6 MCH 28.3 MCHC 33.4 RDW 13.4 Plt Count 422 MPV 7.8 Neut % (Auto) 91.0 H Lymph % (Auto) 5.7 L [place] % (Auto) 1.9 Eos % (Auto) 1.3 Baso % (Auto) 0.1 Neut # (Auto) 15.6 H Lymph # (Auto) 1.0 [place] # (Auto) 0.3 Eos # (Auto) 0.2 Baso # (Auto) 0.0 Total Counted 100 Neutrophils % (Manual) 90 H Lymphocytes % (Manual) 8 L Atypical Lymphs % 1.0 Monocytes % (Manual) 1 L Eosinophils % (Manual) Platelet Estimate Slight increase RBC Morphology Normal ESR Sodium 146 H Potassium 3.9 Chloride 112 H Carbon Dioxide 24 Anion Gap 13.9 BUN 7 Creatinine 0.70 Estimated Creat Clear 123 Estimated GFR 103 Est GFR ( Amer) 124 D Glucose 168 H Lactate Calcium 8.9 D Total Bilirubin AST ALT Alkaline Phosphatase Troponin I < 0.02 C-Reactive Protein Total Protein Albumin Globulin Albumin/Globulin Ratio Serum HCG, Qual Urine Color Urine Appearance Urine pH Ur Specific [place] Urine Protein Urine Glucose (UA) Urine Ketones Urine Blood Urine Nitrate Urine Bilirubin Urine Urobilinogen Ur Leukocyte Esterase Urine RBC Urine WBC Ur Squamous Epith Cells Urine Bacteria 10/10/19 10/10/19 10/10/19 20:00 19:30 19:30 WBC RBC Hgb Hct MCV MCH MCHC RDW Plt Count MPV Neut % (Auto) Lymph % (Auto) [place] % (Auto) Eos % (Auto) Baso % (Auto) Neut # (Auto) Lymph # (Auto) [place] # (Auto) Eos # (Auto) Baso # (Auto) Total Counted Neutrophils % (Manual) Lymphocytes % (Manual) Atypical Lymphs % Monocytes % (Manual) Eosinophils % (Manual) Platelet Estimate RBC Morphology ESR 25 H Sodium Potassium Chloride Carbon Dioxide Anion Gap BUN Creatinine Estimated Creat Clear Estimated GFR Est GFR ( Amer) Glucose Lactate Calcium Total Bilirubin AST ALT Alkaline Phosphatase Troponin I C-Reactive Protein Total Protein Albumin Globulin Albumin/Globulin Ratio Serum HCG, Qual Negative Urine Color Yellow Urine Appearance Clear Urine pH 6.5 Ur Specific [place] 1.025 Urine Protein Trace Urine Glucose (UA) 1+ Urine Ketones Negative Urine Blood 2+ Urine Nitrate Positive Urine Bilirubin Negative Urine Urobilinogen 0.2 Ur Leukocyte Esterase Trace Urine RBC 3-5 Urine WBC 10-20 Ur Squamous Epith Cells Occasional Urine Bacteria 3+ 10/10/19 10/10/19 10/10/19 19:30 19:30 19:30 WBC 17.3 H RBC 5.07 Hgb 13.7 Hct 42.8 MCV 84.4 MCH 27.1 MCHC 32.1 RDW 13.7 Plt Count 475 H MPV 8.0 Neut % (Auto) 92.9 H Lymph % (Auto) 4.5 L [place] % (Auto) 1.8 Eos % (Auto) 0.6 Baso % (Auto) 0.2 Neut # (Auto) 16.0 H Lymph # (Auto) 0.8 [place] # (Auto) 0.3 Eos # (Auto) 0.1 Baso # (Auto) 0.0 Total Counted 100 Neutrophils % (Manual) 94 H Lymphocytes % (Manual) 3 L Atypical Lymphs % Monocytes % (Manual) 2 Eosinophils % (Manual) 1 Platelet Estimate Marked increase RBC Morphology Normal ESR Sodium 138 Potassium 4.2 Chloride 100 Carbon Dioxide 25 Anion Gap 17.2 H BUN 9 Creatinine 0.84 Estimated Creat Clear 133 Estimated GFR 83 Est GFR ( Amer) 101 Glucose 170 H Lactate 1.1 Calcium 9.9 Total Bilirubin 0.4 AST 33 ALT 41 Alkaline Phosphatase 101 Troponin I < 0.02 C-Reactive Protein 24.1 H Total Protein 9.1 H Albumin 3.3 L Globulin 5.8 H Albumin/Globulin Ratio 0.6 L Serum HCG, Qual Urine Color Urine Appearance Urine pH Ur Specific [place] Urine Protein Urine Glucose (UA) Urine Ketones Urine Blood Urine Nitrate Urine Bilirubin Urine Urobilinogen Ur Leukocyte Esterase Urine RBC Urine WBC Ur Squamous Epith Cells Urine Bacteria DS: Diagnosis - Discharge Diagnosis (1) Sepsis Status: Acute (2) IVDU (intravenous drug user) Status: Acute (3) Cavitary lesion of lung Status: Acute (4) Heroin abuse Status: Acute Discharge Plan - Patient Discharge Instructions ACTIVITY: Continue current activity DIET: continue same diet Patient Instructions: Pneumonia-Adult, DI for Pneumonia -- Adult, DI for Drug Abuse and Drug Addiction, DI for Chest Pain - Follow up Plan Disposition: Xfer Short-Term Hosp Prescriptions/Medication Reconciliation: New Acetaminophen [Acetaminophen 325mg tab] 650 mg PO Q4HP PRN tablet PRN Reason: As Needed For Fever Or Pain Sodium Chloride For Inhalation [Sodium Chloride 3% 15mL Neb] 3 ml IH ONCE PRN vial.neb PRN Reason: INDUCE SPUTUM COLLECTION Ketorolac Tromethamine [Toradol 30mg/mL vial] 30 mg IV Q6HP PRN vial PRN Reason: Moderate Pain Cefepime HCl [Maxipime 1gm Vial] 1 gm IV Q8H vial Metronidaz/Sod Chl [Flagyl 500mg/100mL IVPB] 500 mg IV Q8H piggyback Vancomycin HCl [Vancomycin 1000mg Vial] 1,250 mg IV Q12H vial 0.9 % Sodium Chloride [Saline Flush 10mL syringe] 10 ml IV NEEDED PRN syringe PRN Reason: Maintain Iv Site Ondansetron HCl/Pf [Zofran 4mg/2mL vial] 4 mg IV Q8HP PRN vial PRN Reason: Nausea - Problem Reconciliation Problems Reviewed?: Yes
--- NOTE | 2019-10-11 17:19 | Electrocardiograph Report ---
APPROVED REPORT Exam: Resting ECG HR:113 bpm ECG Measurements Heart Rate 113 AXES KS 152 P 58 QRSd 82 QRS 54 QT 314 T58 QTc 430 <Conclusion> Sinus tachycardia Otherwise normal ECG Electronically signed by : Aguilar Harmon, 10/11/2019 17:19:26
--- NOTE | 2019-10-11 20:48 | Cardiology Report ---
APPROVED REPORT EXAM: Comprehensive 2D, Doppler, and color-flow Echocardiogram Chargeback Analyst: Marylin Childs RDCS Ht: 5 ft 2 in Wt: 180lbs BSA: 1.83 BP: 128/75 mmHg Indications: Chest Pain, Shortness of Breath, Endocarditis,SUBSTANCE ABUSE 2D Dimensions LVOT 1.98 cm (M/F) 1.5-2.5 M-Mode Dimensions RVDd 2.74 cm (0.9-2.6)LVDd 4.32 cm (3.5-5.7) LVDs 2.88 cm (3.5-5.7)IVSd 0.74 cm (0.6-1.1) PWd 0.84 cm (0.6-1.1)EF (Teich) 62.30% FS 33.30% EDV (Teich) 84.00 mL ESV (Teich) 31.70 mL LV Diastology E/A Ratio 1.37 Mitral Valve MV A Velocity 58.00 (40-130 cm/s) Left Ventricle Left atrium is normal size, left ventricle is normal size, there is no concentric left ventricular hypertrophy, visually estimated ejection fraction 55% with no regional wall motion abnormality. Diastolic parameters are within normal range. Right Ventricle Right atrium and right ventricle are normal size and contractility. Aortic Valve Aortic valve is grossly normal, there is no aortic stenosis or aortic insufficiency. Mitral Valve Mitral valve is grossly normal, there is trace mitral regurgitation. Tricuspid Valve Tricuspid valve is grossly normal, there is trace tricuspid regurgitation. Pulmonic Valve Pulmonic valve is grossly normal. Great Vessels Aortic root is normal size. Pericardium No significant pericardial effusion noted. Conclusion 1. Normal left ventricular size, preserved left ventricular systolic function, visually estimated ejection fraction 55% with no regional wall motion abnormality. Diastolic parameters are within normal range. 2. Trace mitral and tricuspid regurgitation. 3. No significant pericardial effusion noted 4. No obvious valvular vegetation identified with this study. Electronically signed by : Shlomo Retana, 10/11/2019 20:48:10
[2019-10-12 06:22] LABS: Hepatitis B Surface Antigen Negative (Negative)
[2019-10-12 16:29] LABS: Hepatitis C Antibody <0.1 s/co ratio (0.0-0.9)
[2019-10-13 10:27] LABS: HIV Screen 4th Generation wRfx Non Reactive (Non Reactive)
== END 2019-10-11 14:03 | disposition short-term general hospital (02) | DRG 871 ==
LOC: 2ND 19:29 → ER 19:29 → OBSVTOIN 23:59 → 2ND 10-11 00:56
PROVIDERS: ADMIT Internal Medicine Adolescent Medicine; ATTEND Internal Medicine Adolescent Medicine
CPT/HCPCS: 36415; 71020; 71046; 71275; 80048; 80053; 80074; 80306; 81001; 83605; 84484; 84703; 85007; 85025; 85651; 86140; 86480; 86703; 87040; 87086; 93005; 93306; 96365; 96366; 96375; 99285; G0432; J0692; J2405; J3370; Q9967

== ENCOUNTER 2020-01-16 11:36 | Emergency (ER) | payer OTHER, SELFPAY ==
[2020-01-16 11:42] VITALS: BP 151/88; PULSE 108; RESP 18; TEMP 37.1; O2SAT 100; BMI 23.8
--- NOTE | 2020-01-16 12:08 | PC.NURSE ---
confirmed dosing on Vancomycin with pharmacy, spoke with Jaime. States he will mix medication and bring it down to ER.
--- NOTE | 2020-01-16 14:31 | PC.NURSE ---
Pt and visitor sleeping the bed at this time.
--- NOTE | 2020-01-16 14:54 | HMH.EDSKAF ---
ED Disposition Clinical Impression: Cellulitis Disposition: Home, Self-Care Condition on Discharge: Good Instructions: DI for Skin Abscess Prescriptions: clindamycin HCL [Clindamycin HCl 300mg Cap] 300 mg PO Q6 10 Days #40 cap Transmission Status: Pending to [facility] Referrals: Provider,Referral, [Primary Care Provider] - - Critical Care Critical Care Time: No Attestation: On 01/16/20, the high probability of a clinically significant, sudden or life threatening deterioration of the following system(s) required my full and direct attention, intervention and personal management. The time I documented below is in addition to time spent performing reported procedures but includes the following listed in this critical care notation. Medical Decision Making - Medical Records Medical records reviewed: Yes: I reviewed the patient's medical records. - Mal Inquiry Pt receiving controlled substance: No Vital Signs: 01/16/20 11:42 Temperature 98.7 F Temperature Source Oral Pulse Rate [Left Radial] 108 H Respiratory Rate 18 Blood Pressure [Left Arm] 151/88 H Blood Pressure Mean [Left Arm] 109 Blood Pressure Source [Left Arm] Automatic Cuff Blood Pressure Position [Left Arm] Sitting 02 Sat by Pulse Oximetry 100 Oxygen Delivery Method Room Air - Lab Data Lab results reviewed: Yes: I reviewed the patient's lab results. Orders (Tests/Meds): ED MEDICATIONS Discontinued Medications Generic Name Dose Route Start Last Admin Trade Name Freq PRN Reason Stop Dose Admin Diphenhydramine HCl 25 mg 01/16/20 11:57 01/16/20 13:28 Benadryl 50mg/1ml Vial IV 01/16/20 11:58 Not Given ONCE ONE Vancomycin HCl 1,250 mg/ 250 mls @ 125 mls/hr 01/16/20 11:55 01/16/20 13:28 Sodium Chloride IV 01/16/20 13:54 125 mls/hr ONCE ONE Administration Protocol Clindamycin Phosphate 900 mg/ 106 mls @ 100 mls/hr 01/16/20 11:56 01/16/20 12:13 Sodium Chloride IV 01/16/20 12:59 100 mls/hr ONCE ONE Administration Protocol Skin/Abscess/FB HPI - General Chief complaint: Skin/Abscess/Foreign Body Stated complaint: knot on right arm Time Seen by Provider: 01/16/20 14:54 Mode of Arrival: Ambulatory Source of Information: Patient Limitations: No Limitations Description of Symptoms (Recalled from ER Triage Doc. by RN): Pt reports a knot on R arm. Pt has a raised area that is warm to the touch in R AC area. Pt reports has been raised and painful for 4-5 days. Pt reports area has been sore since shooting up in this area. Pt denies fever, redness or drainage. - History of Present Illness HPI narrative: 24-year-old female presents the ED with an abscess on the right antecubital fossa. Patient is a IV drug user she said she was either using meth or heroin and she now has a hard abscess on the antecubital fossa with no redness or swelling but it is painful. Patient denies any recent fever shakes or chills. Patient denies any cough or shortness of breath. - Related Data Previous Rx's Medication Instructions Recorded 0.9 % Sodium Chloride [Saline 10 ml IV NEEDED PRN syringe 10/11/19 Flush 10mL syringe] Acetaminophen [Acetaminophen 325mg 650 mg PO Q4HP PRN tab 10/11/19 tab] Cefepime HCl [Maxipime 1gm Vial] 1 gm IV Q8H vial 10/11/19 Ketorolac Tromethamine [Toradol 30 mg IV Q6HP PRN vial 10/11/19 30mg/mL vial] Metronidaz/Sod Chl [Flagyl 500 mg IV Q8H piggyback 10/11/19 500mg/100mL IVPB] Ondansetron HCl/Pf [Zofran 4mg/2mL 4 mg IV Q8HP PRN vial 10/11/19 vial] Sodium Chloride For Inhalation 3 ml IH ONCE PRN vial.neb 10/11/19 [Sodium Chloride 3% 15mL Neb] Vancomycin HCl [Vancomycin 1000mg 1,250 mg IV Q12H vial 10/11/19 Vial] Azithromycin 250 mg PO DAILY #5 tab 10/15/19 Cefdinir [Omnicef 300mg Capsule] 300 mg PO BID #20 cap 10/15/19 predniSONE [Prednisone 10mg Tab 10 mg PO UD DOSE PK #1 pack 10/15/19 Dose-Pack] clindamycin HC
[2020-01-16 15:35] VITALS: BP 139/89; PULSE 105; RESP 20; TEMP 37.1; O2SAT 100
== END 2020-01-16 15:35 | disposition home or self-care (01) ==
PROVIDERS: Emergency Provider Family Medicine
DX: L03.111 Cellulitis of right axilla (principal); K21.9 Gastro-esophageal reflux disease without esophagitis; F41.9 Anxiety disorder, unspecified; F11.10 Opioid abuse, uncomplicated; F19.90 Other psychoactive substance use, unspecified, uncomplicated; I10 Essential (primary) hypertension; F17.210 Nicotine dependence, cigarettes, uncomplicated; Z88.0 Allergy status to penicillin; Z79.899 Other long term (current) drug therapy
CPT/HCPCS: 96365; 96367; 99282; J3370

== ENCOUNTER 2020-06-06 09:18 | Emergency (ER) | payer OTHER, SELFPAY ==
[2020-06-06 09:19] VITALS: BP 114/83; PULSE 90; RESP 19; TEMP 37; O2SAT 99; BMI 28.9
--- NOTE | 2020-06-06 10:04 | HMH.EDUTC ---
[facility] [place] Clinical Impression: Viral URI with cough Disposition: Home, Self-Care Condition on Discharge: Good Instructions: Sore Throat, Cough, DI for Nasal Congestion Additional Instructions: *Monitor Temp, Over the counter Motrin or Tylenol as directed/as needed Tylenol every 4 hours and Motrin every 6 hours (as long as your family doctor has told you that you can take it) for fever or pain. and straight to ER if unable to lower temp less than 101.0 after medication given *Warm salt water gargles may help to soothe the throat *Throat Lozenges *Warm fluids like tea with honey may help to soothe the throat *Sleep elevated *Humidifier/Vaporizer *Flonase 2 sprays in each nostril daily but be aware that it may take 2-3 days before you notice improvement *Bromfed may cause drowsiness. Know how it effects you (your child) before driving, caring for small child, or sending your child to school. Not other antihistamines/allergy medications while taking bromfed Your throat swab was sent for culture. Those results are typically sent to your primary care. Be sure to follow up in 2-3 days with your family doctor/primary care physician if no improvement so they can review those result and treat if necessary. If you don?t have a primary care doctor, I recommend you get one but in the mean time, you will have to return to a walk in clinic Follow up IMMEDIATELY for new or worsening symptoms or no Noticeable improvement over the next 48-72 hours. 911 for difficulty breathing or swallowing You was tested for today for COVID19 your test result should be back later this evening, you may call back later this evening to see if your test results are back and the result You was given a handout with instructions for Self Quarantine and Self isolation for while you wait on test results and what to do if they are positive Prescriptions: Brompheniramine/Pseudoephed/Dm [Bromfed Dm Cough Syrup] 5 - 10 ml PO Q46H PRN #150 ml PRN Reason: Cough Transmission Status: Received by [facility] Fluticasone Propionate [Flonase 50mcg nasal spray 16gm] 1 spr NS DAILY #1 bottle Transmission Status: Received by [facility] Referrals: PCP,No [Primary Care Provider] - As needed Forms: Work/School Release Time of Disposition: 10:24 Medical Decision Making - Mal Inquiry Pt receiving controlled substance: No Mal was queried for this patient: No Vital Signs: 06/06/20 09:19 06/06/20 10:34 Temperature 98.6 F 98.6 F Temperature Source Oral Oral Pulse Rate 90 Pulse Rate [Left Radial] 90 Respiratory Rate 19 19 Blood Pressure 114/83 Blood Pressure [Right Arm] 114/83 Blood Pressure Mean [Right Arm] 93 Blood Pressure Source Automatic Cuff Blood Pressure Source [Right Arm] Automatic Cuff Blood Pressure Position Sitting Blood Pressure Position [Right Arm] Sitting 02 Sat by Pulse Oximetry 99 Oxygen Delivery Method Room Air Room Air - Lab Data Lab results reviewed: Yes: I reviewed the patient's lab results. Lab Results 06/06/20 09:39: Strep Scn Rapid Clinic Negative Orders (Tests/Meds): ORDERS Category Date Time Status Covid-19 Nasal PCR ([facility]) Routine Lab 06/06/20 09:45 Received Strep Screen Confirmation Stat Micro 06/06/20 09:39 Received Medical Decision Narrative: Patient denies risk of [facility] [place] - General Stated complaint: sore throat chills Time Seen by Provider: 06/06/20 09:25 Mode of Arrival: Ambulatory Source of Information: Patient Limitations: No Limitations Description of Symptoms (Recalled from Triage Doc. by RN): c/o cough, sore throat and shortness of breath HEENT Symptoms (Recalled from RN notes): Yes Resp Symptoms (Recalled from RN notes): Yes (short of breath) Skin Symptoms (Recalled from RN notes): No MS Symptoms (Recalled from RN notes): No Functional Status (Recalled from RN notes): wnl - History of Present Illness Provider Complaint: Patient states that she has bee
[2020-06-06 10:12] LABS: UTC Strep Screen (Rapid) Negative (Negative)
[2020-06-06 10:34] VITALS: BP 114/83; PULSE 90; RESP 19; TEMP 37; O2SAT 99
== END 2020-06-06 10:35 | disposition home or self-care (01) ==
PROVIDERS: Emergency Provider Nurse Practitioner
DX: J06.9 Acute upper respiratory infection, unspecified (principal); Z20.828 Contact with and (suspected) exposure to other viral communicable diseases; I10 Essential (primary) hypertension; F41.9 Anxiety disorder, unspecified; K21.9 Gastro-esophageal reflux disease without esophagitis; F17.210 Nicotine dependence, cigarettes, uncomplicated; Z87.442 Personal history of urinary calculi
CPT/HCPCS: 87880; 99202; U0003

== ENCOUNTER 2024-08-23 15:20 | Emergency (ER) | payer OTHER, SELFPAY ==
[2024-08-23 15:37] VITALS: BP 0/0; PULSE 0; RESP 0; TEMP -17.7; TEMP 0
== END 2024-08-23 15:37 | disposition left against medical advice (07) ==
LOC: UTC 15:23
PROVIDERS: Emergency Provider Nurse Practitioner Family
DX: Z53.21 Procedure and treatment not carried out due to patient leaving prior to being seen by health care provider (principal)

== ENCOUNTER 2024-08-23 17:00 | Emergency (ER) | payer OTHER, SELFPAY ==
--- NOTE | 2024-08-23 17:07 | EXP.UTC ---
Discharge Plan Disposition Patient Disposition: Home, Self-Care Condition: Good Prescriptions Prescriptions: New [id number] [Bromfed DM] 2-30-10 mg/5 mL Syrup 5 ml PO Q6H PRN (Reason: Cough) Qty: 240 0RF azithromycin [Zithromax] 250 mg tablet 250 mg PO UD DOSE PK Qty: 6 0RF Rx Instructions: Take two (2) tablets today, then one (1) tablet days #2 thru #5 Referrals Follow up/Referrals: Provider,Referral, MD [Primary Care Provider] - See instructions Activity Restrictions/Add. Instructions Additional Instructions/Restrictions: Drink plenty of fluids. Take tylenol or ibuprofen for pain or fever. Take the medications as directed. Follow up with your regular doctor. GO TO THE ER FOR ANY WORSENING SYMPTOMS Clinical Impressions Clinical Impression: Acute viral syndrome, Acute bronchitis Instructions Patient Instructions: DI for Acute Bronchitis Print Language Print Language: Khmer Discharge ED Provider: German Faroo[place] [facility] [place] General Stated complaint: h/a, congestion, fever/chills, body aches Time Seen by Provider: 08/23/24 17:07 Related Data Previous Rx's ?Medication ?Instructions ?Recorded azithromycin 250 mg tablet 250 mg PO UD DOSE PK #6 tabs 08/23/24 (Zithromax) [id number] 5 ml PO Q6H PRN Cough #240 mL 08/23/24 2 mg-30 mg-10 mg/5 mL oral syrup (Bromfed DM) Allergies Allergy/AdvReac Type Severity Reaction Status Date / Time penicillin G (PENICILLIN G) Allergy Unknown -- Verified 10/15/19 18:33 codeine Allergy Verified 10/15/19 18:33 amoxicillin AdvReac Mild NA-NAUSEA/V Verified 10/15/19 18:33 OMITING [facility] Disclaimer: The information contained in this section may have been updated after the patient was seen, as this information can be updated by other users. Social History Smoking Status: Current every day smoker tobacco type: cigarettes packs per day: 1 alcohol intake: never substance use type: heroin and methamphetamine current occupational status: employed Travel in the last 8 weeks: None household members: spouse housing: house caffeine: Yes Have you lived/traveled outside [place] in past 30 days?: No Contact w/someone who lives/traveled outside [place] past 30 days?: No Exposure to someone with infectious disease in past 14 days?: No Do you have a fever (greater than 100.4 F or 38 C)?: Yes Have you tested positive for COVID-19: No Exposed to someone with COVID-19 in past 14 days?: No Do you have a sore throat?: No Do you have a cough?: No Do you have any weakness?: No Do you have any diarrhea?: No Are you experiencing any unusual bleeding?: No Do you have any muscle aches/pain?: Yes Do you have any abdominal pain?: No Are you experiencing loss of taste or smell?: No ROS Obtained: Yes All systems reviewed & no additional complaints except as documented Constitutional Constitutional: Reports chills and Reports fever(s) Eyes Eyes: Denies eye discharge ENT Ears, Nose, Mouth, and Throat: Reports as per HPI Cardiovascular Cardiovascular: Denies chest pain Respiratory Respiratory: Denies chest congestion and Reports cough Gastrointestinal Gastrointestingal: Reports nausea; Denies abdominal pain, constipation, cramping, diarrhea or vomiting Musculoskeletal Musculoskeletal: Denies arthralgias Integumentary/Breasts Skin/Breast: Denies rash Neurologic Neurologic: Denies paresthesias Physical Exam General General appearance: alert and in no apparent distress Head Head exam: atraumatic, normocephalic and normal inspection Eye Eye exam: Present normal appearance, PERRL and EOMI ENT ENT exam: Present mucous membranes moist and normal external ear exam Expanded ENT Exam TM/Canal exam: Bilateral TM: erythema and bulging Nose exam: Absent sinus tenderness Mouth exam: Present normal external inspection; Absent drooling Teeth exam: Present normal inspection Throat exam: Present tonsillar erythema, tonsillomegaly and tonsillar exudate Neck Neck exam: Present normal inspection, full ROM and trachea midline; Absent tenderness, meningismus or lymphadenopathy Chest Chest inspection: Present normal inspection and symmetric chest wall rise; Absent tenderness Respiratory Respiratory exam: Present normal lung sounds bilaterally; Absent respiratory distress, wheezes, stridor or accessory muscle use Cardiovascular Cardiovascular exam: Present regular rate and normal rhythm; Absent systolic murmur or diastolic murmur Abdominal Exam Abdominal exam: Present soft and normal bowel sounds; Absent distention, tenderness, guarding, rebound or rigidity Extremities Exam Extremities exam: Present normal inspection and normal capillary refill; Absent calf tenderness Back Exam Back exam: Present normal inspection and full ROM; Absent tenderness, CVA tenderness (R) or CVA tenderness (L) Neurological Exam Neurological exam: Present alert, oriented X3 and CN II-XII intact Psychiatric Psychiatric exam: Present normal affect and normal mood Skin Skin exam: Present warm, dry, intact and normal color Medical Decision Making Medical Records Medical records reviewed: No I reviewed the patient's medical records. Screening: Per USPSTF and CDC recommendations, given the prevalence of disease in our region, it is our hospital?s policy to screen for HIV and viral Hepatitis for all patients aged 18 and over and those with ongoing risk factors. Mal Inquiry Pt receiving controlled substance: No Lab Data Lab results reviewed: Yes I reviewed the patient's lab results.
[2024-08-23 17:18] VITALS: BP 132/91; PULSE 84; RESP 18; TEMP 36.7; O2SAT 97; BMI 42.0
[2024-08-23 17:23] LABS: UTC Strep Screen (Rapid) Negative (Negative)
[2024-08-23 17:24] LABS: UTC Influenza A Antigen Negative (Negative); UTC Influenza B Antigen Negative (Negative)
[2024-08-23 17:39] VITALS: BP 132/91; PULSE 84; RESP 18; TEMP 36.7
[2024-08-23 19:59] LABS: Coronavirus 19, PCR Not Detected (NotDetected); Influenza A, PCR Not Detected (NotDetected); Influenza B, PCR Not Detected (NotDetected)
[2024-08-23 20:33] LABS: RSV Rapid Ab Screen Negative (Negative)
== END 2024-08-23 17:41 | disposition home or self-care (01) ==
PROVIDERS: Emergency Provider Nurse Practitioner Family
DX: J40 Bronchitis, not specified as acute or chronic (principal); B34.9 Viral infection, unspecified; R50.9 Fever, unspecified; R51.9 Headache, unspecified; M79.10 Myalgia, unspecified site; R09.81 Nasal congestion; R05.9 Cough, unspecified; F17.210 Nicotine dependence, cigarettes, uncomplicated
CPT/HCPCS: 87636; 87804; 87807; 87880; 99212; G0381

== ENCOUNTER 2024-09-29 13:30 | Outpatient (CLI) | payer OTHER, SELFPAY ==
[2024-09-29 16:21] LABS: Microscopic, Urine URINE MICROSCOPIC (MICROSCOPIC)
[2024-09-29 18:55] LABS: Appearance,Urine CLEAR (Clear); Bilirubin,Urine Negative (Negative); Blood, Urine Negative (Negative); Color,Urine YELLOW (Yellow); Glucose,Urine (UA) Negative (Negative); Ketones,Urine Negative (Negative); Leukocyte Esterase,Urine Negative (Negative); Nitrate,Urine Negative (Negative); PH,Urine 7.5 (5.0-8.5); Protein,Urine Negative (Negative); Specific Gravity, Urine 1.025 (1.005-1.030); Urobilinogen,Urine 0.2 EU/dl (0.2)
[2024-09-29 20:36] LABS: Bacteria,Urine 4+ /lpf; Mucus,Urine 2+ /lpf
== END 2024-09-29 23:59 | disposition home or self-care (01) ==
LOC: LAB.DROPOF 09-30 10:40
PROVIDERS: PCP Internal Medicine; Visit Provider Internal Medicine
DX: N39.0 Urinary tract infection, site not specified (principal)
CPT/HCPCS: 81001; 87086; 87088; 87186

== ENCOUNTER 2024-10-05 16:13 | Outpatient (CLI) | payer OTHER, SELFPAY ==
[2024-10-05 16:36] LABS: Basophils % 0.4 % (0.1-2.0); Eosinophils # 0.1 K/mm3 (0.0-0.4); Eosinophils % 1.3 % (0.1-12.0); Hematocrit 39.3 % (37.0-47.0); Hemoglobin 12.5 g/dL (12.2-16.2); Lymphocytes % 28.9 % (10-50); Mean Corpuscular HGB Conc 31.8 g/dL (31.8-35.4); Mean Corpuscular Hemoglobin 27.4 pg (27.0-31.2); Mean Corpuscular Volume 86.2 fl (81-99); Mean Platelet Volume 10.6 fl (7.4-10.4); Monocytes # 0.5 K/mm3 (0.1-1.0); Monocytes % 6.6 % (1.7-9.3); Neutrophils # 4.3 K/mm3 (1.8-7.8); Neutrophils % 62.5 % (37.0-80.0); Platelet Count 259 K/mm3 (142-424); Red Blood Count 4.56 M/mm3 (4.20-5.40); Red Cell Distribution Width 12.5 % (11.5-17.5); White Blood Count 6.9 K/mm3 (4.8-10.8)
[2024-10-05 17:10] LABS: Alanine Aminotransferase 27 U/L (12-78); Albumin Level 4.2 g/dl (3.5-5.0); Albumin/Globulin Ratio 1.7 (1.1-1.8); Alkaline Phosphatase 93 U/L (38-126); Aspartate Amino Transferase 32 U/L (14-36); Blood Urea Nitrogen 14 mg/dl (7-17); Calcium 9.1 mg/dl (8.4-10.2); Carbon Dioxide 26 mmol/L (22.0-30.0); Chloride 105 mmol/L (98-107); Estimated Glomerular Filt Rate 99 ml/min (>60); GFR (African American) 120 ML/MIN (>60); Globulin 2.5 g/dL (1.3-3.2); Glucose 97 mg/dl (74-100); Sodium 140 mmol/L (136-145); Total Protein,Serum 6.7 g/dl (6.3-8.2)
[2024-10-05 17:11] LABS: Anion Gap 13.2 mEq/L (5-15); Bilirubin,Total < 0.1 mg/dl (0.2-1.3); Potassium 4.2 mmoL/L (3.5-5.1)
[2024-10-05 17:12] LABS: Hemoglobin A1C 5.5 % (4.0-6.0)
[2024-10-05 17:24] LABS: 25-OH Vitamin D, Total 18.4 ng/mL (30-100); T4 (Thyroxine) 8.4 ug/dl (5.53-11.0)
[2024-10-05 17:25] LABS: Free T4 (Free Thyroxine) 1.02 ng/dl (0.78-2.19)
[2024-10-05 17:38] LABS: Thyroid Stimulating Hormone 0.43 uIU/mL (0.465-4.68)
[2024-10-05 17:47] LABS: HIV Combo NEGATIVE (Negative)
[2024-10-05 17:57] LABS: Vitamin B12 288 pg/mL (239-931)
[2024-10-06 10:10] LABS: Thyroid Peroxidase Antibodies 10 IU/mL (0-34)
[2024-10-06 17:12] LABS: Thyroglobulin Level <1.0 IU/mL (0.0-0.9)
[2024-10-08 14:12] LABS: HBsAg Screen Negative (Negative); HCV Ab Reactive (Non Reactive); Hep A Ab, IGM Negative (Negative); Hep B Core Ab, IgM Positive (Negative)
[2024-10-10 02:07] LABS: Vitamin B1 108.6 nmol/L (66.5-200.0)
[2024-10-12 10:22] LABS: Vitamin B6 21.6 ug/L (3.4-65.2)
== END 2024-10-05 23:59 | disposition home or self-care (01) ==
LOC: LAB 16:14
PROVIDERS: PCP Nurse Practitioner Family; Visit Provider Nurse Practitioner Family
DX: A60.09 Herpesviral infection of other urogenital tract (principal); R63.5 Abnormal weight gain; E04.1 Nontoxic single thyroid nodule; F32.A Depression, unspecified; F19.91 Other psychoactive substance use, unspecified, in remission; K21.9 Gastro-esophageal reflux disease without esophagitis
CPT/HCPCS: 36415; 80053; 80074; 82306; 82607; 83036; 83735; 84207; 84425; 84436; 84439; 84443; 84481; 85025; 86376; 86800; 87389

== ENCOUNTER 2024-11-03 10:49 | Outpatient (CLI) | payer OTHER, SELFPAY ==
[2024-11-03 12:00] LABS: Albumin Level 4.2 g/dl (3.5-5.0); Chloride 107 mmol/L (98-107); Sodium 140 mmol/L (136-145)
[2024-11-03 12:01] LABS: Potassium 3.9 mmoL/L (3.5-5.1)
[2024-11-03 12:03] LABS: Alanine Aminotransferase 23 U/L (12-78); Albumin/Globulin Ratio 1.6 (1.1-1.8); Alkaline Phosphatase 86 U/L (38-126); Anion Gap 11.9 mEq/L (5-15); Aspartate Amino Transferase 31 U/L (14-36); Bilirubin,Total 0.5 mg/dl (0.2-1.3); Blood Urea Nitrogen 15 mg/dl (7-17); Carbon Dioxide 25 mmol/L (22.0-30.0); Estimated Glomerular Filt Rate 85 ml/min (>60); GFR (African American) 103 ML/MIN (>60); Globulin 2.6 g/dL (1.3-3.2); Total Protein,Serum 6.8 g/dl (6.3-8.2)
[2024-11-03 12:04] LABS: Calcium 9.2 mg/dl (8.4-10.2); Glucose 96 mg/dl (74-100)
[2024-11-04 08:19] LABS: Hep B Core Ab, Total Positive (Negative); Hep B Surface Ab, Qual Reactive (.); Hepatitis B Core Antibody, IgM Positive (Negative); Hepatitis B Surface Antigen Negative (Negative)
== END 2024-11-03 23:59 | disposition home or self-care (01) ==
LOC: LAB 10:50
PROVIDERS: PCP Nurse Practitioner Family; Visit Provider Nurse Practitioner Family
DX: R76.8 Other specified abnormal immunological findings in serum (principal)
CPT/HCPCS: 36415; 80053; 86704; 86705; 86706; 87340

== ENCOUNTER 2024-11-05 11:46 | Outpatient (CLI) | payer OTHER, SELFPAY ==
[2024-11-05 12:07] LABS: Adenovirus F 40/41, stool Not Detected (NotDetected); Astrovirus Not Detected (NotDetected); Campylobacter Not Detected (NotDetected); Clostridium Difficile A/B, PCR Not Detected (NotDetected); Cryptosporidium Not Detected (NotDetected); Cyclospora Cayetanesis Not Detected (NotDetected); Entamoeba histolytica Not Detected (NotDetected); Enteroaggregative E coli Not Detected (NotDetected); Enteropathogenic E coli Not Detected (NotDetected); Enterotoxigenic E coli Not Detected (NotDetected); Giardia lamblia Not Detected (NotDetected); Norovirus Not Detected (NotDetected); Plesimonas Shigalloides, PCR Not Detected (NotDetected); Rotavirus A Not Detected (NotDetected); Salmonella, PCR Not Detected (NotDetected); Sapovirus Not Detected (NotDetected); Shiga-like toxin E coli Not Detected (NotDetected); Shigella Enterovasive E coli Not Detected (NotDetected); Vibrio Cholerae Not Detected (NotDetected); Vibrio, PCR Not Detected (NotDetected); Yersinia Entercolitica, PCR Not Detected (NotDetected)
[2024-11-08 23:14] LABS: HBV IU/mL <10 IU/mL (.)
[2024-11-09 08:54] LABS: Calprotectin, Fecal 196 ug/g (0-120)
[2024-11-10 03:36] LABS: Pancreatic Elastase, Fecal >800 (>200)
== END 2024-11-05 23:59 | disposition home or self-care (01) ==
LOC: LAB 11:47
PROVIDERS: PCP Nurse Practitioner Family; Visit Provider Nurse Practitioner Family
DX: R19.7 Diarrhea, unspecified (principal)
CPT/HCPCS: 82656; 83993; 87506; 87517

== ENCOUNTER 2024-12-18 20:16 | Emergency (ER) | payer OTHER, SELFPAY ==
[2024-12-18 20:23] VITALS: BP 151/100; PULSE 87; RESP 20; TEMP 36.9; O2SAT 97; BMI 42.0
--- NOTE | 2024-12-18 20:26 | ECG_ITS ---
APPROVED REPORT Exam: Resting ECG HR:81 bpm ECG Measurements Heart Rate 81 AXES MO 195 P 49 QRSd 119 QRS 32 QT 341 T 34 QTc 379 Conclusion SINUS RHYTHM POSSIBLE RIGHT VENTRICULAR CONDUCTION DELAY [RSR (QR) IN V1/V2] No acute ST changes Electronically signed by : STANLEY BECERRA, 12/19/2024 00:46:07
--- NOTE | 2024-12-18 20:40 | ED_ITS ---
<Statement entered by Tarah Mancini DO - 12/19/24 00:18> I was consulted by the ZEINAB, and we discussed the complexity of the problems being addressed. I approved the treatment and management plan for this patient's care in the emergency department, thus performing a substantive portion of the medical decision making. On my assessment of the patient, she sitting upright, neurologically intact, no focal deficits and normal vitals on cardiac telemetry. Labs are reassuring with negative troponins x 2. EKG is reassuring. There is nothing on lab evaluation to suggest endocarditis, as she has no leukocytosis, no elevated troponin. She also has no changes on EKG. She states she still has a headache, so had ordered additional medications with patient states she is ready to go home. She was discharged with diagnosis of migraine as well as chest pain. Strict return precautions given Tarah Mancini DO Discharge Plan Disposition Chief Complaint: Headache Prescriptions Prescriptions: No Action prazosin 5 mg capsule 10 mg PO HS meloxicam 15 mg tablet 15 mg PO DAILY cyclobenzaprine 10 mg tablet 10 mg PO HS desvenlafaxine succinate 25 mg tablet extended release 24 hr 25 mg PO DAILY omeprazole 20 mg capsule,delayed release(DR/EC) 20 mg PO DAILY Qty: 30 2RF valacyclovir 1 gram tablet 1,000 mg PO BID 30 Days Qty: 60 0RF phentermine 37.5 mg tablet 37.5 mg PO DAILY 30 Days Qty: 30 0RF Rx Instructions: must administer 30 minutes before or 1-2 hours after breakfast levocetirizine 5 mg tablet 5 mg PO DAILY Qty: 30 2RF cholecalciferol (vitamin D3) 50 mcg (2,000 unit) capsule 50 mcg PO DAILY 30 Days Qty: 30 2RF Referrals Follow up/Referrals: Korin Murillo APRN [Primary Care Provider] - See instructions Print Language Print Language: Arabic Discharge ED Provider: Tarah Mancini General Adult HPI <Afshan Parish APRN - Last Filed: 12/18/24 22:02> General Chief complaint: Headache Stated complaint: Migraine out of the blue and chest pains Time Seen by Provider: 12/18/24 20:34 Mode of Arrival: Ambulatory Source of Information: Patient Description of Symptoms (Recalled from ER Triage Doc. by RN): Pt states she woke up with migrane this morning and is having intermittant chest pain and tingling in right arm Skin pink warm and dry Resp full and easy Speech clear and appropriate History of Present Illness HPI narrative: Patient is a 29-year-old female PMHx endocarditis (2019), hepatitis B, migraines, history of heroin abuse, sepsis, SIRS who presents to the ED for complaints of intermittent chest pain throughout the day and migraine. Patient states she has not had a migraine in approximately 10 years however had a migraine that started earlier today, has almost resolved this evening. She states that she took acetaminophen for symptomatic relief. Related Data Home Medications ?Medication ?Instructions ?Recorded ?Confirmed cyclobenzaprine 10 mg tablet 10 mg PO HS 10/05/24 11/29/24 desvenlafaxine succinate 25 mg 25 mg PO DAILY 10/05/24 11/29/24 tablet,extended release 24 hr meloxicam 15 mg tablet 15 mg PO DAILY 10/05/24 11/29/24 prazosin 5 mg capsule 10 mg PO HS 10/05/24 11/29/24 Previous Rx's ?Medication ?Instructions ?Recorded omeprazole 20 mg capsule,delayed 20 mg PO DAILY #30 caps 10/05/24 release cholecalciferol (vitamin D3) 50 50 mcg PO DAILY 30 days #30 caps 10/07/24 mcg (2,000 unit) capsule levocetirizine 5 mg tablet 5 mg PO DAILY #30 tabs 10/07/24 phentermine 37.5 mg tablet 37.5 mg PO DAILY 30 days #30 tabs 11/29/24 valacyclovir 1 gram tablet 1,000 mg PO BID 30 days #60 tabs 11/29/24 Allergies Allergy/AdvReac Type Severity Reaction Status Date / Time penicillin G (PENICILLIN G) Allergy Unknown -- Verified 11/03/24 10:21 codeine Allergy Verified 11/03/24 10:21 amoxicillin AdvReac Mild NA-NAUSEA/V Verified 11/03/24 10:21 OMITING [facility] <Afshan Parish APRN - Last Filed: 12/18/24 22:02> PFS Disclaimer: The information contained in this section may have been updated after the patient was seen, as this information can be updated by other users. Medical History History of nephrolithotomy with removal of calculi Depression Endoarteritis Kidney stones Surgical History History of Family History Family/Other Diabetes Hyperlipidemia Hypertension Depression Coronary artery disease Social History (Updated 11/03/24 @ 10:22 by Francesca Godfrey MA) Smoking Status: Never smoker alcohol intake: never substance use type: former substance user, heroin and methamphetamine current occupational status: employed Travel in the last 8 weeks: None housing: house caffeine: Yes Have you lived/traveled outside US in past 30 days?: No Contact w/someone who lives/traveled outside US past 30 days?: No Exposure to someone with infectious disease in past 14 days?: No Do you have a fever (greater than 100.4 F or 38 C)?: No Have you tested positive for COVID-19: No Exposed to someone with COVID-19 in past 14 days?: No Do you have a sore throat?: No Do you have a cough?: No Do you have any weakness?: No Do you have any diarrhea?: No Are you experiencing any unusual bleeding?: No Do you have any muscle aches/pain?: No Do you have any abdominal pain?: No Are you experiencing loss of taste or smell?: No Other Medical History Have you received the Flu Vaccine for this season: No Have you received the Pneumonia Vaccine: No <Afshan Parish APRN - Last Filed: 12/18/24 22:02> ROS Obtained: Yes Systems reviewed as appropriate & no additional complaints except as documented Physical Exam <Afshan Parish APRN - Last Filed: 12/18/24 22:02> General General appearance: alert and in no apparent distress Head Head exam: atraumatic and normocephalic Eye Eye exam: Present normal appearance and PERRL ENT ENT exam: Present normal exam Neck Neck exam: Present normal inspection Chest Chest inspection: Present normal inspection and symmetric chest wall rise; Absent tenderness Respiratory Respiratory exam: Present normal lung sounds bilaterally Cardiovascular Cardiovascular exam: Present regular rate Abdominal Exam Abdominal exam: Present soft and normal bowel sounds; Absent tenderness Extremities Exam Extremities exam: Present normal inspection and full ROM Back Exam Back exam: Present normal inspection and full ROM Neurological Exam Neurological exam: Present alert and oriented X3 Psychiatric Psychiatric exam: Present normal affect and normal mood Skin Skin exam: Present warm and dry Medical Decision Making <Afshan Parish APRN - Last Filed: 12/18/24 22:02> Medical Records Screening: Per USPSTF and CDC recommendations, given the prevalence of disease in our region, it is our hospital?s policy to screen for HIV and viral Hepatitis for all patients aged 18 and over and those with ongoing risk factors. Mal Inquiry Pt receiving controlled substance: No Mal was queried for this patient: No Vital Signs: 12/18/24 20:23 Temperature 98.5 F Temperature Source Oral Pulse Rate [Right Brachial] 87 Respiratory Rate 20 Blood Pressure [Right Arm] 151/100 H Blood Pressure Mean [Right Arm] 117 Blood Pressure Source [Right Arm] Automatic Cuff Blood Pressure Position [Right Arm] Sitting 02 Sat by Pulse Oximetry 97 Oxygen Delivery Method Room Air Lab Data Lab Results 12/18/24 20:40: WBC 7.9, RBC 4.20, Hgb 11.6 L, Hct 36.1 L, MCV 86.0, MCH 27.6, MCHC 32.1, RDW 13.5, Plt Count 299, MPV 10.9 H, Neut % (Auto) 60.5, Lymph % (Auto) 29.0, [place] % (Auto) 6.9, Eos % (Auto) 2.8, Baso % (Auto) 0.5, Neut # (Auto) 4.8, Lymph # (Auto) 2.3, [place] # (Auto) 0.5, Eos # (Auto) 0.2, Baso # (Auto) 0.0, Sodium 140, Potassium 3.6, Chloride 106, Carbon Dioxide 25, Anion Gap 12.6, BUN 16, Creatinine 0.80, Estimated Creat Clear 82, Estimated GFR 85, Est GFR ( Amer) 103, Glucose 108 H, Calcium 8.9, Total Bilirubin 0.1 L, AST 29, ALT 22, Alkaline Phosphatase 95, Troponin I < 0.01, Total Protein 7.5, Albumin 4.2, Globulin 3.3 H, Albumin/Globulin Ratio 1.3, Serum HCG, Qual Negative 12/18/24 20:40 12/18/24 20:40 Orders (Tests/Meds): ED MEDICATIONS Discontinued Medications Generic Name Dose Route Start Last Admin Trade Name Freq PRN Reason Stop Dose Admin Diphenhydramine HCl 25 mg 12/18/24 20:40 12/18/24 20:46 Diphenhydramine 50mg/Ml Vial IV 12/18/24 20:41 25 mg ONCE ONE Administration ORDERS Category Date Time Status CXR --portable [XR chest portable] Stat Exams 12/18/24 20:40 Completed CBC w/Auto Diff [Complete Blood Count Auto Diff] Stat Lab 12/18/24 20:40 Completed CMP [Comprehensive Metabolic Panel] Stat Lab 12/18/24 20:40 Completed Serum [HCG Qualitative, Serum] Stat Lab 12/18/24 20:40 Completed Trop I [Troponin I] Stat Lab 12/18/24 20:40 Completed Troponin I Q3H Lab 12/18/24 23:45 Ordered Troponin I Q3H Lab 12/19/24 02:45 Ordered Medical Decision Narrative: In summary, patient is a 29-year-old female PMHx endocarditis (2018), hepatitis B, migraines, history of heroin abuse, sepsis, SIRS who presents to the ED for complaints of intermittent chest pain throughout the day and migraine. Patient states she has not had a migraine in approximately 10 years however had a migraine that started earlier today, has almost resolved this evening. She states that she took acetaminophen for symptomatic relief. Patient states that she had photosensitivity which is normal for her migraines that she has had in the past, reports she has little bit of scalp tenderness remaining. She is not currently having chest pain at this time. She states that she had a history of endocarditis but this feels different, patient states she has been sober for the past 4 years. Denies fever, chills, bodyaches, current visual disturbances, neck pain, shortness of breath, abdominal pain, nausea, vomiting, dysuria, back pain. Differential diagnosis include ACS, dissection, pulmonary embolism, infectious process, electrolyte imbalance, among others Discussed with patient we will proceed with cardiac workup and migraine cocktail. Hematologic labs reviewed. CBC unremarkable for any leukocytosis, stable H&H. CMP unremarkable for any actual abnormalities. Troponin < 0.01. Final read of the chest x-ray unremarkable for any acute findings. Care tranferred to Dr. Mancini pending further workup. <Tarah Mancini, DO - Last Filed: 12/18/24 20:44> Vital Signs: 12/18/24 20:23 Temperature 98.5 F Temperature Source Oral Pulse Rate [Right Brachial] 87 Respiratory Rate 20 Blood Pressure [Right Arm] 151/100 H Blood Pressure Mean [Right Arm] 117 Blood Pressure Source [Right Arm] Automatic Cuff Blood Pressure Position [Right Arm] Sitting 02 Sat by Pulse Oximetry 97 Oxygen Delivery Method Room Air Lab Data Lab Results 12/18/24 20:40: WBC 7.9, RBC 4.20, Hgb 11.6 L, Hct 36.1 L, MCV 86.0, MCH 27.6, MCHC 32.1, RDW 13.5, Plt Count 299, MPV 10.9 H, Neut % (Auto) 60.5, Lymph % (Auto) 29.0, [place] % (Auto) 6.9, Eos % (Auto) 2.8, Baso % (Auto) 0.5, Neut # (Auto) 4.8, Lymph # (Auto) 2.3, [place] # (Auto) 0.5, Eos # (Auto) 0.2, Baso # (Auto) 0.0, Sodium 140, Potassium 3.6, Chloride 106, Carbon Dioxide 25, Anion Gap 12.6, BUN 16, Creatinine 0.80, Estimated Creat Clear 82, Estimated GFR 85, Est GFR ( Amer) 103, Glucose 108 H, Calcium 8.9, Total Bilirubin 0.1 L, AST 29, ALT 22, Alkaline Phosphatase 95, Troponin I < 0.01, Total Protein 7.5, Albumin 4.2, Globulin 3.3 H, Albumin/Globulin Ratio 1.3, Serum HCG, Qual Negative Orders (Tests/Meds): ED MEDICATIONS Discontinued Medications Generic Name Dose Route Start Last Admin Trade Name Yanickq PRN Reason Stop Dose Admin Diphenhydramine HCl 25 mg 12/18/24 20:40 12/18/24 20:46 Diphenhydramine 50mg/Ml Vial IV 12/18/24 20:41 25 mg ONCE ONE Administration ORDERS Category Date Time Status CXR --portable [XR chest portable] Stat Exams 12/18/24 20:40 Completed CBC w/Auto Diff [Complete Blood Count Auto Diff] Stat Lab 12/18/24 20:40 Completed CMP [Comprehensive Metabolic Panel] Stat Lab 12/18/24 20:40 Completed Serum [HCG Qualitative, Serum] Stat Lab 12/18/24 20:40 Completed Trop I [Troponin I] Stat Lab 12/18/24 20:40 Completed Troponin I Q3H Lab 12/18/24 23:45 Ordered Troponin I Q3H Lab 12/19/24 02:45 Ordered ECG Data Tracing #1: I reviewed this ECG and interpreted as documented below: Normal sinus rhythm with a ventricular rate of [address] changes concerning for ischemia. Normal intervals ECG initial impression date: 12/18/24 ECG initial impression time: 20:30 Critical Care <Afshan Parish APRN - Last Filed: 12/18/24 22:02> Critical Care Time Critical Care Time: No
--- NOTE | 2024-12-18 20:40 | XR_ITS ---
PROCEDURE INFORMATION: Exam: XR Chest Exam date and time: 12/18/2024 8:51 PM Age: 29 years old Clinical indication: Pain; Other: Cp TECHNIQUE: Imaging protocol: Radiologic exam of the chest. Views: 1 view. COMPARISON: CR XR CHEST 2V 10/15/2019 7:49 PM FINDINGS: Lungs: Unremarkable. No consolidation. Pleural spaces: Unremarkable. No pleural effusion. No pneumothorax. Heart/Mediastinum: Unremarkable. No cardiomegaly. Bones/joints: Unremarkable. IMPRESSION: No acute findings.
[2024-12-18] MEDS: diphenhydrAMINE 50MG/ML VIAL 25 MG IV (20:46)
[2024-12-18 20:49] LABS: Albumin Level 4.2 g/dl (3.5-5.0); Chloride 106 mmol/L (98-107); Sodium 140 mmol/L (136-145)
[2024-12-18 20:50] LABS: Potassium 3.6 mmoL/L (3.5-5.1)
[2024-12-18 20:51] LABS: Basophils % 0.5 % (0.1-2.0); Eosinophils # 0.2 Kmm3 (0.0-0.4); Eosinophils % 2.8 % (0.1-12.0); Hematocrit 36.1 % (37.0-47.0); Hemoglobin 11.6 g/dL (12.2-16.2); Lymphocytes # 2.3 K/mm3 (0.7-4.5); Mean Corpuscular HGB Conc 32.1 g/dL (31.8-35.4); Mean Corpuscular Hemoglobin 27.6 pg (27.0-31.2); Mean Platelet Volume 10.9 fl (7.4-10.4); Monocytes # 0.5 K/mm3 (0.1-1.0); Monocytes % 6.9 % (1.7-9.3); Neutrophils # 4.8 K/mm3 (1.8-7.8); Neutrophils % 60.5 % (37.0-80.0); Nucleated Red Blood Cells # 0 10^3/uL; Nucleated Red Blood Cells % 0 %; Platelet Count 299 K/mm3 (142-424); Red Cell Distribution Width 13.5 % (11.5-17.5); Red Cell Distribution Width-SD 42.1 fL; White Blood Count 7.9 K/mm3 (4.8-10.8)
[2024-12-18 20:52] LABS: Alanine Aminotransferase 22 U/L (12-78); Anion Gap 12.6 mEq/L (5-15); Aspartate Amino Transferase 29 U/L (14-36); Blood Urea Nitrogen 16 mg/dl (7-17); Carbon Dioxide 25 mmol/L (22.0-30.0); Creatinine Clearance Estimated 82 mL/min (50-200); Estimated Glomerular Filt Rate 85 ml/min (>60); GFR (African American) 103 ML/MIN (>60)
[2024-12-18 20:53] LABS: Albumin/Globulin Ratio 1.3 (1.1-1.8); Alkaline Phosphatase 95 U/L (38-126); Calcium 8.9 mg/dl (8.4-10.2); Globulin 3.3 g/dL (1.3-3.2); Glucose 108 mg/dl (74-100); Total Protein,Serum 7.5 g/dl (6.3-8.2)
[2024-12-18 20:57] LABS: Bilirubin,Total 0.1 mg/dl (0.2-1.3)
[2024-12-18 21:12] LABS: Troponin I < 0.01 ng/ml (0.00-0.034)
[2024-12-18 21:37] LABS: HCG Qualitative, Serum Negative (Negative)
[2024-12-18 23:05] LABS: Troponin I < 0.01 ng/ml (0.00-0.034)
[2024-12-18] MEDS: KETOROLAC 30MG/ML VIAL 15 MG IV (23:19)
[2024-12-18] MEDS: METOCLOPRAMIDE HCL 10MG/2ML VIAL 5 MG IVP (23:19)
[2024-12-18] MEDS: ACETAMINOPHEN 1,000MG/100ML VIAL 1000 MG IV (23:20)
[2024-12-18 23:29] VITALS: BP 148/87; PULSE 87; RESP 18; TEMP 36.7; O2SAT 99
== END 2024-12-18 23:34 | disposition home or self-care (01) ==
PROVIDERS: Nurse Practitioner; Emergency Provider Emergency Medicine; PCP Nurse Practitioner Family
DX: R07.89 Other chest pain (principal); G43.909 Migraine, unspecified, not intractable, without status migrainosus
CPT/HCPCS: 71045; 80053; 84484; 84703; 85025; 93005; 96374; 96375; 99285; J0131; J1200; J1885; J2765

== ENCOUNTER 2025-01-04 12:51 | Day surgery (SDC) | payer OTHER, SELFPAY ==
[2025-01-02 14:43] VITALS: BMI 43.9
[2025-01-04 13:13] VITALS: BP 128/80; PULSE 92; RESP 18; TEMP 36.4; O2SAT 98
[2025-01-04] MEDS: LACTATED RINGERS 1000ML 1,000 ML 50 ML IV (13:23)
[2025-01-04 14:00] LABS: HCG Qualitative, Serum Negative (Negative)
--- NOTE | 2025-01-04 14:13 | EXP.HP ---
History of Present Illness *Admission Date: 01/04/25 *Reason for visit:: fecal urgency/diarrhea/elevated calprotectin *History of present illness: Ms. Todd is a 29-year-old female who is here for with diarrhea, fecal urgency and elevated fecal calprotectin. The examination is deemed medically necessary for diagnostic colonoscopy. The patient has been seen, interviewed and examined prior to the procedure by both myself and the anesthesia provider. [facility] Disclaimer: The information contained in this section may have been updated after the patient was seen, as this information can be updated by other users. Medical History Endocarditis History of nephrolithotomy with removal of calculi Depression Endoarteritis Kidney stones Surgical History History of Family History Family/Other Diabetes Hyperlipidemia Hypertension Depression Coronary artery disease Social History (Updated 01/04/25 @ 13:18 by Smiley Carroll RN) Smoking Status: Current every day smoker tobacco type: e-cigarettes alcohol intake: never substance use type: former substance user, heroin and methamphetamine current occupational status: employed Travel in the last 8 weeks?: None housing: house caffeine: Yes Have you lived/traveled outside US in past 30 days?: No Contact w/someone who lives/traveled outside US past 30 days?: No Exposure to someone with infectious disease in past 14 days?: No Do you have a fever (greater than 100.4 F or 38 C)?: No Have you tested positive for COVID-19?: No Exposed to someone with COVID-19 in past 14 days?: No Do you have a sore throat?: No Do you have a cough?: No Do you have any weakness?: No Are you experiencing any nausea/vomitting?: No Do you have any diarrhea?: No Are you experiencing any unusual bleeding?: No Do you have any muscle aches/pain?: No Do you have any abdominal pain?: No Are you experiencing loss of taste or smell?: No Other Medical History Have you received the Flu Vaccine for this season: No Have you received the Pneumonia Vaccine: No Review of Systems Review of Systems Review of systems (narrative): Negative *Cardiovascular Comments: Negative *Gastrointestinal Comments: Negative *Genitourinary Comments: Negative *Musculoskeletal Comments: Negative *Neurologic Comments: Negative Meds Home Medications and Allergies Home Medications ?Medication ?Instructions ?Recorded ?Confirmed ?Type desvenlafaxine succinate 25 mg 25 mg PO DAILY 10/05/24 01/04/25 History tablet,extended release 24 hr (Pristiq) meloxicam 15 mg tablet 15 mg PO DAILY 10/05/24 01/04/25 History prazosin 5 mg capsule 10 mg PO HS 10/05/24 01/04/25 History valacyclovir 1 gram tablet 1,000 mg PO BID 30 days #60 tabs 11/29/24 01/04/25 Rx cyclobenzaprine 10 mg tablet See Rx Instructions .Route 12/19/24 01/04/25 Rx .COMPLEX #30 tabs clotrimazole 10 mg jose alejandro 10 mg mucous membrane 5XD 14 days 12/27/24 01/04/25 Rx #70 tabs phentermine 37.5 mg tablet 37.5 mg PO DAILY 30 days #30 tabs 12/27/24 01/04/25 Rx cranberry 500 mg capsule 500 mg PO BID 12/29/24 01/04/25 History dicyclomine 10 mg capsule 10 mg PO QID PRN Urgency #120 caps 12/29/24 01/04/25 Rx pyridoxine (vitamin B6) 10 mg 10 mg PO DAILY 12/29/24 01/04/25 History tablet sodium,potassium,mag sulfates 17.5 See Rx Instructions PO .COMPLEX 12/29/24 01/04/25 Rx gram-3.13 gram-1.6 gram oral soln #354 mL (Suprep Bowel Prep Kit) cholecalciferol (vitamin D3) 50 See Rx Instructions .Route 12/30/24 01/04/25 Rx mcg (2,000 unit) capsule .COMPLEX #30 caps levocetirizine 5 mg tablet See Rx Instructions .Route 12/30/24 01/04/25 Rx .COMPLEX #30 tabs omeprazole 20 mg capsule,delayed See Rx Instructions .Route 12/30/24 01/04/25 Rx release .COMPLEX #30 caps New Prescriptions to Start Prescriptions: Allergies Allergy/AdvReac Type Severity Reaction Status Date / Time codeine Allergy Mild Vomiting Verified 01/04/25 13:12 penicillin G (PENICILLIN G) Allergy Mild Vomiting Verified 01/04/25 13:12 amoxicillin AdvReac Mild NA-NAUSEA/V Verified 01/04/25 13:12 OMITING Exam Data for Last 24 hours Vital signs and Labs for Last 24 Hours: Temp Pulse Resp BP Pulse Ox O2 Del Method 97.6 F 92 H 18 128/80 98 Room Air 01/04/25 13:13 01/04/25 13:13 01/04/25 13:13 01/04/25 13:13 01/04/25 13:13 01/04/25 13:13 Laboratory Results - last 24 hr 01/04/25 13:17: Serum HCG, Qual Negative I & O for Last 24 hours: Intake & Output 01/01/25 01/02/25 01/03/25 01/04/25 23:59 23:59 23:59 23:59 Weight 240 lb *Routine HEENT Exam Head: Present normocephalic Eye: Present EOMI and PERRL ENT: Present mucous membranes moist *Routine Neck Exam Neck: Present supple *Routine Respiratory Exam Respiratory: Present CTA bilaterally *Routine Cardiovascular Exam Cardiovascular: Present RRR *Routine Abdominal Exam Abdominal: Present soft and normoactive bowel sounds; Absent tenderness *Routine Rectal Exam Rectal:: deferred *Routine Genitalia Exam Genitalia:: deferred *Routine Extremities Exam Extremities: Absent cyanosis, clubbing or edema *Routine Skin Exam Skin: Present warm; Absent rash *Routine Neurological Exam Neurological: Present alert and oriented X3 Assessment and Plan *Assessment and plan (1) Elevated fecal calprotectin: Status: Acute Category: Medical Code(s): R19.5 - Other fecal abnormalities (2) Fecal urgency: Status: Acute Category: Medical Code(s): R15.2 - Fecal urgency (3) Diarrhea: Status: Acute Category: Medical Code(s): R19.7 - Diarrhea, unspecified Plan A/P: 1. Diarrhea/fecal urgency with elevated fecal calprotectin is the preprocedural diagnosis. The patient will be anesthetized/sedated using MAC sedation. The patient has been seen and examined. Cardiac and lung assessment prior to the examination is stable. Proceed with planned diagnostic colonoscopy.
--- NOTE | 2025-01-04 14:16 | P.PNANES_ITS ---
[facility] Disclaimer: The information contained in this section may have been updated after the patient was seen, as this information can be updated by other users. Medical History Endocarditis History of nephrolithotomy with removal of calculi Depression Endoarteritis Kidney stones Surgical History History of Family History Family/Other Diabetes Hyperlipidemia Hypertension Depression Coronary artery disease Social History (Updated 01/04/25 @ 13:18 by Smiley Carroll RN) Smoking Status: Current every day smoker tobacco type: e-cigarettes alcohol intake: never substance use type: former substance user, heroin and methamphetamine current occupational status: employed Travel in the last 8 weeks?: None housing: house caffeine: Yes Have you lived/traveled outside US in past 30 days?: No Contact w/someone who lives/traveled outside US past 30 days?: No Exposure to someone with infectious disease in past 14 days?: No Do you have a fever (greater than 100.4 F or 38 C)?: No Have you tested positive for COVID-19?: No Exposed to someone with COVID-19 in past 14 days?: No Do you have a sore throat?: No Do you have a cough?: No Do you have any weakness?: No Are you experiencing any nausea/vomitting?: No Do you have any diarrhea?: No Are you experiencing any unusual bleeding?: No Do you have any muscle aches/pain?: No Do you have any abdominal pain?: No Are you experiencing loss of taste or smell?: No [facility] Anesthesia Checklist Patient Identification Patient Identification: Arm Band Structural Data Admitted From: Home Planned Operative Procedure/s: Colonoscopy Consent for Planned Operative Procedure(s) Verified: Yes Verified Documents: Surgical Consent and History and Physical NPO Status Verified Time NPO: 00:00 Additional verifications Anesthesia Reactions: No Airway Assessment Mallampati Score:: Class II C-Spine Mobility Assessed: Yes TMJ Mobility Assessed: Yes Dentition: Good Dentition Neurological Assessment Level of Consciousness: Awake, Alert and Appropriate Anesthesia Plan Anesthesia Risk discussed: Yes Anesthesia Plan: Verified ASA Class: II Anesthesia Type: MAC
[2025-01-04 14:17] VITALS: O2SAT 100
--- NOTE | 2025-01-04 14:24 | P.PCN_ITS ---
[facility] Procedure Note Date: 01/04/25 Time: 14:36 Procedure Note:: Colonoscopy Procedure Report: Colonoscopy with cold biopsies Endoscopist: Barry Jackson II, MD Referring physician: JAIME Kaiser Date of Procedure: January 04, 2025 Equipment: Olympus 190 variable stiffness pediatric colonoscope Sedation: MAC sedation Indication: Mrs. Todd is a 29-year-old female with chronic diarrhea on most days. For the last 10 months she has had postprandial bowel urgency and diarrhea with most meals. Her fecal calprotectin was very mildly elevated at 198. Her PCR stool panel was negative and she had a normal fecal elastase (greater than 800). The patient reports no blood or mucus with her bowel movements. She has had no gassiness, bloating or crampy abdominal discomfort. She reports no weight loss or family history of colitis or Crohn's disease. She has never had cholecystectomy. This is her first colonoscopy for diagnostic purposes. Procedure: Prior to the procedure, a history and physical exam was performed, and patient's medications and allergies were reviewed. The risks, benefits and alternatives of the sedation and procedure were discussed with the patient. All questions were answered and informed consent was obtained. The patient was brought to the procedure room. Patient identification and proposed procedure were verified by the physician and the nurse. The patient was placed in a left lateral decubitus position and the scope was passed under direct vision. Throughout the procedure, the patient's blood pressure, pulse, and oxygen saturations were monitored continuously. The colonoscopy was accomplished without difficulty. The patient tolerated the procedure well. Findings: On digital rectal examination there was normal rectal tone. There were no external hemorrhoids. The colonoscope was introduced through the anal canal to the rectum and advanced to the cecum. The ileocecal valve and appendiceal orifice were identified. The scope was advanced a short distance into the ileum. There was a single ileal ulceration that was 7 to 8 mm and clean-based but there were no aphthous erosions or ulcerations or evidence of Crohn's. Biopsies were taken from the ileal ulcer margins. The scope was then withdrawn into the colon. The cecum, ascending and transverse colon and mucosa were grossly normal. There were scattered diverticuli throughout the descending and sigmoid colon (LEFT colon). Cold biopsies were taken from both the right and left colon to rule out microscopic colitis. The rectum itself was normal. Upon retroflexion within the rectum there were grade 1-2 internal hemorrhoids. The preparation was excellent throughout with Gaffney Preparation Score of 9. The cecal time was 12 minutes. Impression: 1. Isolated 7 to 8 mm ileal ulcer?rule out NSAID induced ulcer. 2. Left-sided diverticulosis 3. Grade 1-2 internal hemorrhoids Plan: I will follow-up the biopsies and inquire about NSAID use. I would encourage bulking FiberCon 2 tablets every morning. If the biopsies are normal, I would consider initiating Viberzi twice daily.
[2025-01-04 14:38] VITALS: BP 130/83; PULSE 91; RESP 17; TEMP 36.2; O2SAT 98
[2025-01-04 14:48] VITALS: BP 124/45; PULSE 81; RESP 17; O2SAT 97
[2025-01-04 14:58] VITALS: BP 136/81; PULSE 84; RESP 17; O2SAT 99
[2025-01-04 15:08] VITALS: BP 144/89; PULSE 89; RESP 17; TEMP 36.2; O2SAT 96
== END 2025-01-04 15:12 | disposition home or self-care (01) ==
PROVIDERS: PCP Nurse Practitioner Family; Visit Provider Internal Medicine Gastroenterology
PROC: 0DJD8ZZ Inspection of Lower Intestinal Tract, Via Natural or Artificial Opening Endoscopic (ICD-10-PCS; CPT 45378; principal; 2025-01-04 14:30)
DX: R19.5 Other fecal abnormalities (principal); R15.2 Fecal urgency; R19.7 Diarrhea, unspecified; K63.3 Ulcer of intestine; K57.30 Diverticulosis of large intestine without perforation or abscess without bleeding; K64.8 Other hemorrhoids
CPT/HCPCS: 45380; 84703; J7120

== ENCOUNTER 2025-01-13 14:22 | Outpatient (CLI) | payer OTHER, SELFPAY ==
[2025-01-13 16:31] LABS: Anti-Centromere B Antibodies ND; Anti-DNA (DS) Ab Qn ND; Anti-Jo-1 ND; Antichromatin Antibodies ND; Antiscleroderma-70 Antibodies ND; RNP Antibodies ND
[2025-01-13 17:42] LABS: Alanine Aminotransferase 21 U/L (12-78); Albumin Level 4.4 g/dl (3.5-5.0); Albumin/Globulin Ratio 1.6 (1.1-1.8); Alkaline Phosphatase 90 U/L (38-126); Anion Gap 13.4 mEq/L (5-15); Aspartate Amino Transferase 29 U/L (14-36); Bilirubin,Total 0.4 mg/dl (0.2-1.3); Blood Urea Nitrogen 9 mg/dl (7-17); Calcium 9.2 mg/dl (8.4-10.2); Carbon Dioxide 27 mmol/L (22.0-30.0); Chloride 104 mmol/L (98-107); Estimated Glomerular Filt Rate 85 ml/min (>60); GFR (African American) 103 ML/MIN (>60); Globulin 2.7 g/dL (1.3-3.2); Glucose 75 mg/dl (74-100); Potassium 4.4 mmoL/L (3.5-5.1); Sodium 140 mmol/L (136-145); Total Protein,Serum 7.1 g/dl (6.3-8.2)
[2025-01-14 09:11] LABS: Hep B Core Ab, Total Positive (Negative); Hep B Surface Ab, Qual Reactive (.); Hepatitis B Core Antibody, IgM Positive (Negative); Hepatitis B Surface Antigen Negative (Negative); Hepatitis Be Antibody Reactive (Negative)
[2025-01-16 13:35] LABS: Antinuclear Antibodies (ANA) Negative (Negative); Sjogren's Anti-SS-A <0.2 AI (0.0-0.9); Sjogren's Anti-SS-B <0.2 AI (0.0-0.9)
[2025-01-17 19:10] LABS: HBV IU/mL HBV DNA not detected IU/mL (.)
[2025-01-24 15:35] LABS: Sjogren's Anti-SS-A <0.2; Sjogren's Anti-SS-B <0.2
== END 2025-01-13 23:59 | disposition home or self-care (01) ==
LOC: LAB.DROPOF 01-16 14:23
PROVIDERS: Nurse Practitioner Family; PCP Nurse Practitioner Family; Visit Provider Nurse Practitioner Family
DX: R68.2 Dry mouth, unspecified (principal); R76.8 Other specified abnormal immunological findings in serum
CPT/HCPCS: 80053; 86038; 86235; 86704; 86705; 86706; 86707; 87340; 87517

== ENCOUNTER 2025-03-13 15:55 | Outpatient (CLI) | payer OTHER, SELFPAY ==
--- OUTSIDE RECORDS SUMMARY | 2025-03-14 12:57 | XMS_ITS | Encounter Summary ---
Author Organization [employer] ([place], [place], [place], [place]) Address [address] [place] [address] Care Team Providers Care Panama Hat Blocker Name Role Phone Unavailable Primary Care Provider Unavailabl e Encounter Details Date Type Department Care Team (Late st Contact Info) Description 10/24/2019 Transcribed Document [facility] [place] [address] [place] [address] ProviderChip MD [address] [place] [address] Social History Tobacco Use Types Packs/Day Years Used Date Smoking Tobacco: Never Assessed Comments Unknown Sex and Gender Information Value Date Recorded Sex Assigned at Female 02/25/2022 8:40 PM CDT Legal Sex Female 8:40 PM CDT Gender Identity Female 02/25/2022 8:40 PM CDT Sexual Orientation Not on file documented as of this encounter Miscellaneous Notes * Cerner Conversion Note - Historical ProviderMD - 10/24/2019 1:05 PM EDDY CURRENT INSPECTOR UM Authorization Entered On: 10/24/2019 13:05 EST Performed On: 10/24/2019 13:05 EST by CONSUELO JAMES RN Primary Insurance Authorization Authorization and Policy Numbers : Insurance 1 Health Plan: [facility] Policy Number: [id number] Authorization Number: Insurance Primary Name : [facility] Policy Number: [id number] Authorization Status-Primary : Denial - admission Auth/Referral Contact Name-Primary : DC + Authorized Service Begin Date-Primary : 10/11/2019 EST Authorization Comments-Primary : Per GRETCHEN May agrees with Observation. Emailed to billing. Historical Authorization Comments-Primary : Comment 1: Email sent again to RD/[facility] for obs. (CONSUELO JAMES RN 10/24/2019 11:34) Comment 2: Emailed denial letter, p2p form, and MCG to RD/[facility] (CONSUELO JAMES RN 10/13/2019 10:03) Comment 3: per call from [facility] with [facility]. Denied as not meeting INPT. Will also fax us a denial letter with appeal info.P2P ph# [phone] (SALLY KAUR, Used Car Salesperson 10/12/2019 15:19) CONSUELO JAMES, ADDY - 10/24/2019 13:05 EST Electronically signed by Barbara [facility] Conversion Vacuum Form Operator Cerner at 12/17/2022 6:34 PM CDT documented in this encounter Plan of Treatment Not on file documented as of this encounter Visit Diagnoses Not on filedocumented in this encounter
--- OUTSIDE RECORDS SUMMARY | 2025-03-14 12:57 | XMS_ITS | Patient Health Record ---
Author Organization [facility] Address [address] [place] [address] Care Team Providers Care Van Cdl Driver Name Role Phone Rsoa Enriquez Primary Care Provider Allergies Allergen (clinical drug ingredient) Drug/Non Drug Allergy documented on EMR Reaction Allergy Type Onset Date Status amoxicillin Amoxicillin Unknown Drug Allergy Act jalil Penicillin Unknown Drug Allergy Active Reason For Referral No Information Problems Problem Type SNOMED Code ICD Code Onset Dates Problem Status W/U Status Risk Notes Problem Alcohol dependence (62016460) Uncomplicated alcohol dependence (F10.20) Active confirmed Problem Opioid dependence (03783866) Uncomplicated opioid dependence (F11.20) Active confirmed Plan Of Treatment No Information Insurance Providers Payer Name Payer Address Payer Phone Subscriber Number Group Number Insured Name Patient Relationship to Insured Coverage Start Date Coverage End Date [facility] Medicaid [address] [address] [place] [address] [id number] Hellen Todd Self - patient is the insured 2 Medical (General) History Medical History History ICD Code hypertension anxiety depression Surgical History Surgery Date(Month/Year) Section kidney stone surgery Hospitalization History Reason Date(Month/Year) childbirth
--- OUTSIDE RECORDS SUMMARY | 2025-03-14 12:57 | XMS_ITS | Encounter Summary ---
Author Organization [employer] ([place], [place], [place], [place]) Address [address] [place] [address] Care Team Providers Care College Associate Name Role Phone Unavailable Primary Care Provider Unavailabl e Encounter Details Date Type Department Care Team (Late st Contact Info) Description 10/12/2019 Transcribed Document [facility] [place] Medicine [address] [place] [address] ProviderChip MD [address] [place] [address] Social History Tobacco Use Types [...] Cerner Conversion Note - Historical ProviderMD - 10/12/2019 2:00 PM BAR STAFF UM Authorization Entered On: 10/12/2019 14:00 EST Performed On: 10/12/2019 14:00 EST by PAPO EDWARDS Rn-Utilization Review Primary Insurance Authorization Authorization and Policy Numbers : Insurance 1 Health Plan: [facility] Policy Number: [id number] Authorization Number: Insurance Primary Name : [facility] Policy Number: [id number] Authorization Status-Primary : Awaiting callback Auth/Referral Contact Name-Primary : [place] Authorized Service Begin Date-Primary : 10/11/2019 EST Historical Authorization Comments-Primary : No Authorization Comments Found PAPO EDWARDS Rn-Utilization Review - 10/12/2019 14:00 EST Electronically signed by Barbara [facility] Conversion Motor And Controls Tester Cerner at 12/17/2022 6:29 PM CDT documented in this encounter Plan of Treatment Not on file documented as of this encounter Visit Diagnoses Not on filedocumented in this encounter
--- OUTSIDE RECORDS SUMMARY | 2025-03-14 12:57 | XMS_ITS | Encounter Summary ---
Author Organization [employer] ([place], [place], [place], [place]) Address [address] [place] [address] Care Team Providers Care Oral Communication Instructor Name Role Phone Unavailable Primary Care Provider Unavailabl e Encounter Details Date Type Department Care Team (Late st Contact Info) Description 10/11/2019 Transcribed Document [facility] [place] Medicine [address] [place] [address] ProviderChip MD [address] [place] [address] Social History Tobacco Use Types [...] Cerner Conversion Note - Historical ProviderMD - 10/11/2019 5:33 PM APPLICATION SECURITY DEVELOPER DATE OF ADMISSION: 10/11/2019 PRIMARY CARE PHYSICIAN: Not listed. CHIEF COMPLAINT: Cough, fever, shortness of breath. HISTORY OF PRESENT ILLNESS: This is a 24-year-old female with history of tobacco use, history of IV drug abuse, otherwise no major medical problems, previous history of kidney stone. The patient presented to outside facility because not feeling well. The patient has been having shortness of breath, cough which are going on for almost 1 week, associated with fever, night sweats, weight loss, nausea, chest pain. Symptoms getting worse. The patient has been evaluated there. CT of the chest done which was abnormal. The patient was transferred to [facility] for infectious disease and pulmonary evaluation. The patient lying in bed, anxious. Spouse at bedside. SYSTEMIC REVIEW: GENERAL: Positive for fever and chills. HEAD: No headache. Positive for dizziness. EYES: No change of vision. EARS: No earache. NOSE: No epistaxis. THROAT: No sore throat. RESPIRATORY: Positive for shortness of breath and dry cough. CARDIAC: Positive for chest pain and palpitation. GI: Positive for nausea. No vomiting. URINARY: No hematuria. MUSCULOSKELETAL: Body ache. NEUROLOGICAL: No focal numbness or weakness. SKIN: No new rashes. ENDOCRINE: No heat or cold intolerance. PAST MEDICAL HISTORY: 1. History of kidney stone. 2. Tobacco use. 3. IV drug use. PAST SURGICAL HISTORY: 1. . 2. Kidney stone removal. 3. History of broken extremity. SOCIAL HISTORY: The patient with a history of tobacco use, IV drug use. No alcohol abuse. FAMILY HISTORY: Positive for heart disease and diabetes. ALLERGIES: Amoxicillin, codeine, latex, and penicillin. HOME MEDICATIONS: None. PHYSICAL EXAMINATION: HEENT: Head atraumatic, normocephalic. Pupils are round and reactive. Eyes, no conjunctival injection or discharge. Ears, no discharge. Nose, no bleeding or discharge. Mouth, dry. NECK: Supple. Full range of motion. CHEST: Poor inspiratory effort. Clear to auscultation. No crackles, wheeze, or rhonchi. No respiratory muscle retraction. HEART: S1 and S2 heard. Regular rate and rhythm. ABDOMEN: Soft. No tenderness. No guarding. No rebound tenderness. EXTREMITIES: No edema, erythema, or tenderness. NEUROLOGICAL: No apparent focal motor or sensory deficits. The patient is alert, awake, oriented x3. Intact cranial nerves. PSYCHIATRIC: Positive for anxiety. SKIN: No apparent rashes or induration. ENDOCRINE: No thyromegaly or tenderness. GENERAL: The patient is lying in bed, anxious. Spouse at bedside. LABS AND STUDIES: Pending. ASSESSMENT AND PLAN: 1. Pneumonia. The patient had blood culture ordered. Start on intravenous fluids, intravenous antibiotic with Zosyn and doxycycline, breathing treatment and oxygen. 2. Abnormal CT of chest. The patient with abnormal CT of chest, shows cavitary lesion. The patient with history of drug use, high risk of multiple problems. The patient also with weight loss, night sweats. She will be on isolation to rule out tuberculosis and we will consult Infectious Disease. 3. History of intravenous drug abuse. The patient is at high risk of endocarditis, had fever. Blood culture was ordered. We will check echo of the heart. 4. Dehydration. Start intravenous fluids. 5. Anxiety. We will start Ativan as needed. 6. History of tobacco use. We will offer nicotine patch. 7. Gastrointestinal prophylaxis, Pepcid. 8. Deep vein thrombosis prophylaxis, compression boot. Plan discussed in detail with the ER physician, with the patient, with RN. Chart was reviewed. Critical time spent, 55 minutes. /[id number] MD AYUSH Lantigua/MILLY / AYUSH / DONNA documented in this encounter Plan of Treatment Not on file documented as of this encounter Visit Diagnoses Not on filedocumented in this encounter
--- OUTSIDE RECORDS SUMMARY | 2025-03-14 12:57 | XMS_ITS | Encounter Summary ---
Author Organization [employer] ([place], [place], [place], [place]) Address [address] [place] [address] Care Team Providers Care Concrete Truck Driver Name Role Phone Unavailable Primary Care Provider Unavailabl e Encounter Details Date Type Department Care Team (Late st Contact Info) Description 10/12/2019 Transcribed Document [facility] [place] [address] [place] [address] ProviderChip MD [address] [place] [address] Social History Tobacco Use Types [...] Conversion Note - Historical ProviderMD - 10/12/2019 3:20 PM TEAM ASSISTANT UM Authorization Entered On: 10/12/2019 15:21 EST Performed On: 10/12/2019 15:20 EST by SALLY KAUR, Edge Banding Machine Offbearer Primary Insurance Authorization Authorization and Policy Numbers : Insurance 1 Health Plan: [facility] Policy Number: [id number] Authorization Number: Insurance Primary Name : [facility] Policy Number: [id number] Authorization Status-Primary : Awaiting callback Auth/Referral Contact Name-Primary : [place] Authorized Service Begin Date-Primary : 10/11/2019 EST Historical Authorization Comments-Primary : Comment 1: per call from [facility] with [facility]. Denied as not meeting INPT. Will also fax us a denial letter with appeal info.P # [phone] (SALLY KAUR, Edge Banding Machine Offbearer 10/12/2019 15:19) SALLY KAUR, Edge Banding Machine Offbearer - 10/12/2019 15:20 EST Electronically signed by Barbara, [facility] Conversion Noc Analyst Cerner at 12/17/2022 6:12 PM CDT documented in this encounter Plan of Treatment Not on file documented as of this encounter Visit Diagnoses Not on filedocumented in this encounter
--- OUTSIDE RECORDS SUMMARY | 2025-03-14 12:57 | XMS_ITS | Encounter Summary ---
Author Organization [employer] ([place], [place], [place], [place]) Address [address] [place] [address] Care Team Providers Care Imagery Intelligence Name Role Phone Unavailable Primary Care Provider Unavailabl e Encounter Details Date Type Department Care Team (Late st Contact Info) Description 10/11/2019 Transcribed Document [facility] [place] Family Medicine [address] [place] [address] ProviderChip MD [address] [place] [address] Social History Tobacco Use Types Packs/Day Years Used Date Smoking Tobacco: Never Assessed Comments Unknown Sex and Gender Information Value Date Recorded Sex Assigned at Female 02/25/2022 8:40 PM CDT Legal Sex Female 8:40 PM CDT Gender Identity Female 02/25/2022 8:40 PM CDT Sexual Orientation Not on file documented as of this encounter Miscellaneous Notes * Cerner Conversion Note - Historical Provider, - 10/11/2019 3:11 PM STONE GANG SAWYER Admission History, Adult Entered On: 10/11/2019 17:00 EST Performed On: 10/11/2019 15:11 EST by Bay Lyons RN Advance Directive Patient has Advance Directive *Q : No, patient refuses Advance Directive information Bay Lyons RN - 10/11/2019 19:12 EST Anesthesia/Transfusion History Family History of Anesthesia Reaction : No prior transfusion(s) Blood Transfusion Acceptable to Patient : No Transfusion History : Prior anesthesia without reaction Family History of Anesthesia Reaction : None Bay Lyons RN - 10/11/2019 19:12 EST Functional Assessment Living Situation : Home Patient Lives With : Spouse Persons Assisting Patient at Home : Spouse Current Daily Living Assistance : None Sensory Deficits : None PORTILLO Hx Falls Immediate/Within 3 Months : No Current Home Treatments : None Bay Lyons RN - 10/11/2019 19:12 EST General Info Preferred Name : Hellen Arrived From : Emergency department Mode of Arrival on Unit : Stretcher Legal Guardian : waiter/waitress counter Legal Guardian : No Support Person/Patient Inspector Set Up And Lay Out : No Contact Password : 1111 Want Family/Rep/Phys Notified of Admit : No Emergency Contact #1 : Yuriy Lewis Emergency Contact #1 Emergency Contact #1 Relationship : Emergency Contact #2 : Yuriy Lewis Emergency Contact #2 Emergency Contact #2 Relationship : Primary Language : Haitian Preferred Communication Mode : Verbal Communication Barrier : None Bay Lyons RN - 10/11/2019 19:12 EST Fall Risk Scales ABCs Fall Injury Risk Identification : None PORTILLO Hx Falls Immediate/Within 3 Months : No Portillo Secondary Diagnosis : No PORTILLO Use of Ambulatory Aid : Bed rest/Nurse assist PORTILLO IV Therapy or IV Access : Yes Portillo Gait/Transferring : Normal, bedrest, immobile Portillo Mental Status : Oriented to own ability Portillo Fall Risk Score : 20 PORTILLO Fall Scale Risk Level : 0-24 Low Risk [place] Fall Interventions : Adequate lighting, Assistive devices within reach, Bed in low position, Call device within reach, Fall prevention handout/education per facility policy, Frequent orientation to call device, Frequent orientation to surroundings, Hourly comfort/safety rounds, Non-slip footwear, Personal items within reach, Reinforced to call for assistance before getting out of bed, Room free of clutter/spills, Upper side-rails up, Wheels locked, Wires/Cords secured Bay Lyons RN - 10/11/2019 19:12 EST Fall Risk Education Grid Alarms : Needs further teaching Assistive Equipment Use : Needs further teaching Bed Height/Stabilization : Needs further teaching Call light use : Needs further teaching Door Open : Needs further teaching Environmental Management : Needs further teaching Eyeglasses Use : Needs further teaching Fall Community Resources : Needs further teaching Fall Contract/Letter : Needs further teaching Fall Prevention in the Home : Needs further teaching Fall Prevention Protocol : Needs further teaching Hearing Aid Use : Needs further teaching Home Risk Assessment : Needs further teaching Need Constant Observation : Needs further teaching Night Light Use : Needs further teaching Nonskid Footwear Use : Needs further teaching Notification of Staff When Leaving : Needs further teaching Orthostatic Hypotension Precautions : Needs further teaching Personal Article Availability : Needs further teaching Prevention Responsibility Family : Needs further teaching Prevention Responsibility Patient : Needs further teaching Risk Alert Methods : Needs further teaching Risk Factors : Needs further teaching Safety Aids : Needs further teaching Siderails use/risks : Needs further teaching Special Assistive Devices : Needs further teaching Staff Responsiveness : Needs further teaching Symptom Identification & Action Plan *Q : Needs further teaching Symptom Reporting : Needs further teaching Toileting Schedule : Needs further teaching Transfer/Mobility Techniques : Needs further teaching Urinal/Bedpan Availability : Needs further teaching Wait for Assistance : Needs further teaching Wheelchair Safety : Needs further teaching Bay Lyons RN - 10/11/2019 19:12 EST Barriers to Learning : Acuity of Illness Highest Level of Education : None Learning Style Preferences Family : Verbal explanation Learning Style Preferences Patient : Printed materials, Verbal explanation Bay Lyons RN - 10/11/2019 19:12 EST Health Histories Smoking Status : Former smoker, quit more than 30 days ago Smokeless Tobacco Status : Never Bay Lyons RN - 10/11/2019 19:12 EST Social History (As Of: 10/11/2019 19:27:09 EST) Tobacco: 4 or less cigarettes(less than 1/4 pack)/day in last 30 days Smoking Status. Never Smokeless Tobacco Status. (Last Updated: 10/11/2019 19:19:36 EST by Bay Lyons RN) Alcohol: Alcohol Use History No. Use in Last 12 Months: No. (Last Updated: 10/11/2019 19:19:45 EST by Bay Lyons RN) Substance Abuse: Drug Use Hx: Yes. Use in Last 12 Months: Yes. Heroin Recreational Drug Type. Frequency: Binges. Drug Route: Intravenous. Refuses FDA approved medications Desires Substance Cessation Medication. (Last Updated: 10/11/2019 19:20:54 EST by Bay Lyons RN) Nutrition/Health: Regular (Last Updated: 10/11/2019 19:20:59 EST by Bay Lyons RN) Exercise: Exercise duration: 0. (Last Updated: 10/11/2019 19:21:06 EST by Bay Lyons RN) Height and Weight, Clinical Dosing Height Source : Stated Height Entry Format : [place] Height, Feet : 5 ft(Converted to: 152 cm, 60 Inch) Height, Inches : 2 Inch(Converted to: 0 ft 2 Inch, 5.08 cm) Clinical Height : 157.48 cm Weight Source : Bed scale Weight Entry Format : Metric, kilograms Weight, Kilograms : 62.9 kg(Converted to: 138 lb 11 oz) Clinical Dosing Weight : 62.9 kg Body Surface Area (BSA) : 1.64 m2 Body Mass Index : 25.4 kg/m2 (HI) [place] Body Weight : 50 kg Bay Lyons RN - 10/11/2019 16:58 EST Infectious Disease History Physical contact outside [place] in the last 30 days : No Infectious Disease History : None Tuberculosis Symptoms : Fever, Night Sweats Bay Lyons RN - 10/11/2019 19:12 EST Influenza Vaccine Asmt, Adult Previous Vaccines from Immunization Schedule : No qualifying data available. Influenza Immunization, Current Season : No Inactivated Flu Vaccine Contraindications : No contraindications to inactivated influenza vaccine Transplant Workup/Recent Transplant : No Order for Influenza Vaccine : Declined Vaccination Bay Lyons RN - 10/11/2019 19:12 EST Pneumococcal Vaccine Previous Vaccines from Immunization Schedule : No qualifying data available. Pneumonia Immunization Received : No Pneumococcal Risk Assessment < Age 65 : None Bay Lyons RN - 10/11/2019 19:12 EST Nutrition History Weight Entry Format Nutrition History : Metric Feeding Ability : Independent Eating Poorly Due to Decreased Appetite : Yes Unplanned Weight Loss in Past 3-6 Months : No Malnutrition Screening Tool Total(mal) : 1 Malnutrition Screening Tool Risk Level : Patient not at risk Bay Lyons RN - 10/11/2019 19:12 EST [place] Suicide Severity Rating Scale (C-SSRS) CSSRS Past Month Wish to be : No CSSRS Past Month Suicidal Thoughts : No CSSRS Lifetime Suicide Behavior : No Suicide Severity Rating Score : 0 Suicide Severity Rating : No Additional Care Required at this time Bay Lyons RN - 10/11/2019 19:12 EST Psychosocial History Does Someone Depend on You for Care? : No Currently in Unsafe Situation : No Bay Lyons RN - 10/11/2019 19:12 EST Sleep Apnea Risk Assmt Hx of Obstructive Sleep Apnea Diagnosis : No Snore Loudly : No Tired, Fatigued, or Sleepy During Day : No Observed Stopping Breathing During Sleep : No Have/Are Being Treated for Hypertension : No BMI Greater Than 35 kg/m2 : No Age over 50 Years Old : No Neck Circumference Greater Than 40 cm : No Gender Male : No STOP-BANG Sleep Apnea Risk Level Score : 0 Bay Lyons RN - 10/11/2019 19:12 EST Valuables and Belongings Valuables and Belongings : Comfort items, Jewelry, Personal items Comfort Items : Other: Purse and cell phone milk route supervisor Comfort Items Disposition : Bedside, Declines to send to security/safe Jewelry : Bracelet, Ring Jewelry Disposition : With patient, Declines to send to security/safe Personal Items : Cell phone Personal Items Disposition : Bedside Bay Lyons RN - 10/11/2019 19:12 EST documented in this encounter Plan of Treatment Not on file documented as of this encounter Visit Diagnoses Not on filedocumented in this encounter
--- OUTSIDE RECORDS SUMMARY | 2025-03-14 12:57 | XMS_ITS | Referral Summary ---
Author Organization [employer] ([place], [place], [place], [place]) Address [address] [place] [address] Care Team Providers Care Rebrander Name Role Phone Unavailable Primary Care Provider Unavailabl e Social History Tobacco Use Types Packs/Day Years Used Date Smoking Tobacco: Never Assessed Comments Unknown Sex and Gender Information Value Date Recorded Sex Assigned at Female 02/25/2022 8:40 PM CDT Legal Sex Female 8:40 PM CDT Gender Identity Female 02/25/2022 8:40 PM CDT Sexual Orientation Not on file Plan of Treatment Not on file
--- OUTSIDE RECORDS SUMMARY | 2025-03-14 12:57 | XMS_ITS | Encounter Summary ---
Author Organization [employer] ([place], [place], [place], [place]) Address [address] [place] [address] Care Team Providers Care Electric Stove Mechanic Name Role Phone Unavailable Primary Care Provider Unavailabl e Encounter Details Date Type Department Care Team (Late st Contact Info) Description 10/12/2019 Transcribed Document [facility] [place] [address] [place] [address] ProviderChip MD [address] [place] [address] Social History Tobacco Use Types [...] Conversion Note - Historical ProviderMD - 10/12/2019 1:58 PM MINE INSPECTOR FEDERAL UM Authorization Entered On: 10/12/2019 13:58 EST Performed On: 10/12/2019 13:58 EST by Kym Kim Program Management Manager Primary Insurance Authorization Authorization and Policy Numbers : Insurance 1 Health Plan: [facility] Policy Number: [id number] Authorization Number: Insurance Primary Name : [facility] Policy Number: [id number] Auth/Referral Contact Name-Primary : [place] Historical Authorization Comments-Primary : No Authorization Comments Found Kym Kim, Program Management Manager - 10/12/2019 13:58 EST Electronically signed by Barbara [facility] Conversion Training Developer Cerner at 12/17/2022 6:10 PM CDT documented in this encounter Plan of Treatment Not on file documented as of this encounter Visit Diagnoses Not on filedocumented in this encounter
--- OUTSIDE RECORDS SUMMARY | 2025-03-14 12:57 | XMS_ITS | Encounter Summary ---
Author Organization [employer] ([place], [place], [place], [place]) Address [address] [place] [address] Care Team Providers Care Orthopedics Pediatric Physician Name Role Phone Unavailable Primary Care Provider Unavailabl e Encounter Details Date Type Department Care Team (Late st Contact Info) Description 10/12/2019 Transcribed Document [facility] [place] Family Medicine [address] [place] [address] ProviderChip MD [address] [place] [address] Social History Tobacco Use Types [...] Conversion Note - Historical ProviderMD - 10/12/2019 8:56 AM COUNTY COMMISSIONER UM Authorization Entered On: 10/12/2019 8:56 EST Performed On: 10/12/2019 8:56 EST by PAPO EDWARDS Rn-Utilization Review Primary Insurance Authorization Authorization and Policy Numbers : Insurance 1 Health Plan: [facility] Policy Number: [id number] Authorization Number: Insurance Primary Name : [facility] Policy Number: [id number] Historical Authorization Comments-Primary : No Authorization Comments Found PAPO EDWARDS Rn-Utilization Review - 10/12/2019 8:56 EST documented in this encounter Plan of Treatment Not on file documented as of this encounter Visit Diagnoses Not on filedocumented in this encounter
--- OUTSIDE RECORDS SUMMARY | 2025-03-14 12:57 | XMS_ITS | Encounter Summary ---
Author Organization [employer] ([place], [place], [place], [place]) Address [address] [place] [address] Care Team Providers Care Clam Digger Name Role Phone Unavailable Primary Care Provider Unavailabl e Encounter Details Date Type Department Care Team (Late st Contact Info) Description 10/18/2019 Transcribed Document [facility] [place] Medicine [address] [place] [address] ProviderChip MD [address] [place] [address] Social History Tobacco Use Types [...] Cerner Conversion Note - Historical ProviderMD - 10/18/2019 2:01 PM SPEECH PATHOLOGY ASSISTANT UM Authorization Entered On: 10/18/2019 14:01 EST Performed On: 10/18/2019 14:01 EST by Kym Kim, Pipe Fitter Maintenance Primary Insurance Authorization Authorization and Policy Numbers : Insurance 1 Health Plan: [facility] Policy Number: [id number] Authorization Number: Insurance Primary Name : [facility] Policy Number: [id number] Authorization Status-Primary : Denial - admission Auth/Referral Contact Name-Primary : DC + Authorized Service Begin Date-Primary : 10/11/2019 EST Historical Authorization Comments-Primary : Comment 1: Emailed denial letter, p2p form, and MCG to RD/[facility] (CONSUELO JAMES RN 10/13/2019 10:03) Comment 2: per call from [facility] with [facility]. Denied as not meeting INPT. Will also fax us a denial letter with appeal info.[facility]# [phone] (SALLY KAUR, Bone Char Kiln Tender 10/12/2019 15:19) Kym Kim, Pipe Fitter Maintenance - 10/18/2019 14:01 EST Electronically signed by Barbara [facility] Conversion Stencil Typist Cerner at 12/17/2022 6:23 PM CDT documented in this encounter Plan of Treatment Not on file documented as of this encounter Visit Diagnoses Not on filedocumented in this encounter
--- OUTSIDE RECORDS SUMMARY | 2025-03-14 12:57 | XMS_ITS | Encounter Summary ---
Author Organization [employer] ([place], [place], [place], [place]) Address [address] [place] [address] Care Team Providers Care Surveyor'S Assistant Name Role Phone Unavailable Primary Care Provider Unavailabl e Encounter Details Date Type Department Care Team (Late st Contact Info) Description 10/24/2019 Transcribed Document [facility] [place] [address] ProviderChip MD [address] [place] [address] Social History Tobacco Use Types [...] Conversion Note - Historical ProviderMD - 10/24/2019 11:34 AM CHEESE COOK UM Authorization Entered On: 10/24/2019 11:34 EST Performed On: 10/24/2019 11:34 EST by CONSUELO JAMES RN Primary Insurance Authorization Authorization and Policy Numbers : Insurance 1 Health Plan: [facility] Policy Number: [id number] Authorization Number: Insurance Primary Name : [facility] Policy Number: [id number] Authorization Status-Primary : Denial - admission Auth/Referral Contact Name-Primary : DC + Authorized Service Begin Date-Primary : 10/11/2019 EST Authorization Comments-Primary : Email sent again to [facility] for obs. Historical Authorization Comments-Primary : Comment 1: Emailed denial letter, p2p form, and MCG to [facility] (CONSUELO JAMES RN 10/13/2019 10:03) Comment 2: per call from [facility] with [facility]. Denied as not meeting INPT. Will also fax us a denial letter with appeal info.[facility]# [phone] (SALLY KAUR, Snorkelling Instructor 10/12/2019 15:19) CONSUELO JAMES RN - 10/24/2019 11:34 EST Electronically signed by Barbara, [facility] Conversion Speech Pathology Teacher Cerner at 12/17/2022 6:25 PM CDT documented in this encounter Plan of Treatment Not on file documented as of this encounter Visit Diagnoses Not on filedocumented in this encounter
--- OUTSIDE RECORDS SUMMARY | 2025-03-14 12:57 | XMS_ITS | Encounter Summary ---
Author Organization [employer] ([place], [place], [place], [place]) Address [address] [place] [address] Care Team Providers Care Biomedical Field Service Engineer Name Role Phone Unavailable Primary Care Provider Unavailabl e Encounter Details Date Type Department Care Team (Late st Contact Info) Description 10/11/2019 Transcribed Document [facility] [place] Family Medicine [address] [place] [address] ProviderChip MD [address] [place] [address] Social History Tobacco Use Types [...] Conversion Note - Historical ProviderMD - 10/11/2019 7:03 AM COLLECTION ADVISOR Consult Phone Call Documentation Entered On: 10/11/2019 16:54 EST Performed On: 10/11/2019 7:03 EST by Urszula Zayas, [facility] Unit Coord Phone Call for Consults Consult Phone Call/Page Attempt : First call Consult Reason : Lung Cavity? Provider Team Notified Name : Pulmonary medicine Consult, Additional Information : Call was answered and hung up upon Urszula Zayas, [facility] Unit Coord - 10/11/2019 16:54 EST Electronically signed by Frieda Jimenez Conversion Bullet Swaging Machine Adjuster Cerner at 12/17/2022 6:18 PM CDT documented in this encounter Plan of Treatment Not on file documented as of this encounter Visit Diagnoses Not on filedocumented in this encounter
--- OUTSIDE RECORDS SUMMARY | 2025-03-14 12:57 | XMS_ITS | Clinical Summary ---
Author Organization [employer] ([place], [place], [place], [place]) Address [address] [place] [address] Care Team Providers Care Bi Report Developer Name Role Phone Unavailable Primary Care Provider [...]
--- OUTSIDE RECORDS SUMMARY | 2025-03-14 12:57 | XMS_ITS | Encounter Summary ---
Author Organization [employer] ([place], [place], [place]) Address [address] [place] [address] Care Team Providers Care Turbine Operator Name Role Phone Unavailable Primary Care Provider Unavailabl e Encounter Details Date Type Department Care Team (Late st Contact Info) Description 10/12/2019 Transcribed Document [facility] [place] Family Medicine [facility] [place] [address] ProviderChip MD [address] [place] [address] Social History Tobacco Use Types Packs/Day Years Used Date Smoking Tobacco: Never Assessed Comments Unknown Sex and Gender Information Value Date Recorded Sex Assigned at Female 02/25/2022 8:40 PM CDT Legal Sex Female 8:40 PM CDT Gender Identity Female 02/25/2022 8:40 PM CDT Sexual Orientation Not on file documented as of this encounter Miscellaneous Notes * Cerner Conversion Note - Chip ProviderMD - 10/12/2019 2:13 AM CAN SOLDERER DATE OF DISCHARGE: 10/11/2019 The patient left the hospital against medical advice. DIAGNOSES: 1. Sepsis. 2. History of intravenous drug abuse. 3. Pneumonia. 4. Abnormal CT of chest. 5. Lung cavitary lesion. 6. Dehydration. 7. Anxiety. 8. History of tobacco abuse. HISTORY AND HOSPITAL COURSE: This is a 24-year-old female with history of IV drug abuse, transferred from outside facility for pneumonia. The patient presented to ER for shortness of breath, cough, had been evaluated there. CT of chest done shows cavitary lesion of the lung. The patient was transferred to [facility] for Infectious Disease and Pulmonary consult. The patient came in, had blood work done, but the patient was anxious, not happy. She decided to leave the hospital against medical advice. Risk and complication were explained for the patient in details, but the patient insisted to leave the hospital. The patient signed the paper and left the hospital against medical advice. The patient at high risk of mortality and morbidity. Chart was reviewed. Time spent, 40 minutes. /[id number] MD AYUSH Lantigua/MILLY / AYUSH / DONNA /[id number] Electronically signed by Barbara [facility] Conversion Mail Processing Equipment Mechanic Cerner at 12/17/2022 6:11 PM CDT documented in this encounter Plan of Treatment Not on file documented as of this encounter Visit Diagnoses Not on filedocumented in this encounter
--- OUTSIDE RECORDS SUMMARY | 2025-03-14 12:57 | XMS_ITS | Encounter Summary ---
Author Organization [employer] ([place], [place], [place], [place]) Address [address] [place] [address] Care Team Providers Care Component Design Engineer Name Role Phone Unavailable Primary Care Provider Unavailabl e Encounter Details Date Type Department Care Team (Late st Contact Info) Description 10/13/2019 Transcribed Document [facility] [place] Family Medicine [address] [place] [address] ProviderChip MD [address] [place] [address] Social History Tobacco Use Types [...] Cerner Conversion Note - Historical ProviderMD - 10/13/2019 10:03 AM QUALITY CONTROL CLERK UM Authorization Entered On: 10/13/2019 10:03 EST Performed On: 10/13/2019 10:03 EST by CONSUELO JAMES RN Primary Insurance Authorization Authorization and Policy Numbers : Insurance 1 Health Plan: [facility] Policy Number: [id number] Authorization Number: Insurance Primary Name : [facility] Policy Number: [id number] Authorization Status-Primary : Denial - admission Auth/Referral Contact Name-Primary : DC Authorized Service Begin Date-Primary : 10/11/2019 EST Authorization Comments-Primary : Emailed denial letter, p2p form, and MCG to RD/[facility] Historical Authorization Comments-Primary : Comment 1: per call from [facility]. Denied as not meeting INPT. Will also fax us a denial letter with appeal info.[facility] ph# [phone] (SALLY KAUR, Furniture Decals Inspector 10/12/2019 15:19) CONSUELO JAMES RN - 10/13/2019 10:03 EST documented in this encounter Plan of Treatment Not on file documented as of this encounter Visit Diagnoses Not on filedocumented in this encounter
--- OUTSIDE RECORDS SUMMARY | 2025-03-14 12:57 | XMS_ITS | Encounter Summary ---
Author Organization [employer] ([place], [place], [place], [place]) Address [address] [place] [address] Care Team Providers Care Vegetable Inspector Name Role Phone Unavailable Primary Care Provider Unavailabl e Encounter Details Date Type Department Care Team (Late st Contact Info) Description 10/12/2019 Transcribed Document [facility] [place] Family Medicine [address] [place] [address] ProviderChip MD [address] [place] [address] Social History Tobacco Use Types [...] Conversion Note - Historical ProviderMD - 10/12/2019 3:19 PM COMPOSING ROOM MACHINIST APPRENTICE UM Authorization Entered On: 10/12/2019 15:20 EST Performed On: 10/12/2019 15:19 EST by SALLY KAUR, First Aid Trainer Primary Insurance Authorization Authorization and Policy Numbers : Insurance 1 Health Plan: [facility] Policy Number: [id number] Authorization Number: Insurance Primary Name : [facility] Policy Number: [id number] Authorization Status-Primary : Awaiting callback Auth/Referral Contact Name-Primary : [place] Authorized Service Begin Date-Primary : 10/11/2019 EST Authorization Comments-Primary : per call from [facility] with [facility]. Denied as not meeting INPT. Will also fax us a denial letter with appeal info. [facility]# [phone] Historical Authorization Comments-Primary : No Authorization Comments Found SALLY KAUR, First Aid Trainer - 10/12/2019 15:19 EST Electronically signed by Interface, [facility] Conversion Senior Net Architect Cerner at 12/17/2022 6:19 PM CDT documented in this encounter Plan of Treatment Not on file documented as of this encounter Visit Diagnoses Not on filedocumented in this encounter
--- OUTSIDE RECORDS SUMMARY | 2025-03-14 12:57 | XMS_ITS | Encounter Summary ---
Author Organization [employer] ([place], [place], [place], [place]) Address [address] [place] [address] Care Team Providers Care Radio Artist Name Role Phone Unavailable Primary Care Provider Unavailabl e Encounter Details Date Type Department Care Team (Late st Contact Info) Description 10/11/2019 Transcribed Document [facility] [place] Family Medicine [address] [place] [address] ProviderChip MD [address] [place] [address] Social History Tobacco Use [...] Conversion Note - Historical ProviderMD - 10/11/2019 10:00 AM SPANISH LITERATURE PROFESSOR Consult Phone Call Documentation Entered On: 10/11/2019 17:58 EST Performed On: 10/11/2019 10:00 EST by Urszula Zayas Night Guard-Health Unit Coord Phone Call for Consults Consult Phone Call/Page Attempt : Second call Consult Reason : PNA Consult, Additional Information : Dr. Pollard gauge controller Urszula Zayas, Night Guard-Health Unit Coord - 10/11/2019 17:58 EST documented in this encounter Plan of Treatment Not on file documented as of this encounter Visit Diagnoses Not on filedocumented in this encounter
== END 2025-03-13 23:59 | disposition home or self-care (01) ==
LOC: LAB.DROPOF 03-14 12:52
PROVIDERS: PCP Nurse Practitioner Family; Visit Provider Nurse Practitioner Family
DX: N39.0 Urinary tract infection, site not specified (principal)
CPT/HCPCS: 87086; 87088; 87186

== ENCOUNTER 2025-03-20 13:28 | Outpatient (CLI) | payer OTHER, SELFPAY ==
--- OUTSIDE RECORDS SUMMARY | 2025-03-21 12:03 | XMS_ITS | Patient Health Record ---
Author Organization [facility] Address [address] [place] [address] Care Team Providers Care Guide Name Role Phone Rosa Enriquez Primary Care Provider Allergies Allergen (clinical drug ingredient) Drug/Non Drug Allergy documented on EMR Reaction Allergy Type Onset Date Status amoxicillin Amoxicillin Unknown Drug Allergy Act jalil Penicillin Unknown Drug Allergy Active Reason For Referral No Information Problems Problem Type SNOMED Code ICD Code Onset Dates Problem Status W/U Status Risk Notes Problem Alcohol dependence (09193313) Uncomplicated alcohol dependence (F10.20) Active confirmed Problem Opioid dependence (02791603) Uncomplicated opioid dependence (F11.20) Active confirmed Plan Of Treatment No Information Insurance Providers Payer Name Payer Address Payer Phone Subscriber Number Group Number Insured Name Patient Relationship to Insured Coverage Start Date Coverage End Date [facility] Medicaid [address] [address] [place] [phone] [id number] Hellen Todd Self - patient is the insured 2 Medical (General) History Medical History History ICD Code hypertension anxiety depression Surgical History Surgery Date(Month/Year) Section kidney stone surgery Hospitalization History Reason Date(Month/Year) childbirth
--- OUTSIDE RECORDS SUMMARY | 2025-03-21 12:03 | XMS_ITS | Encounter Summary ---
Author Organization [employer] ([place], [place], [place], [place]) Address [address] [place] [address] Care Team Providers Care Director Of Sustainability Programs Name Role Phone Unavailable Primary Care Provider Unavailabl e Encounter Details Date Type Department Care Team (Late st Contact Info) Description 10/11/2019 Transcribed Document [facility] [place] Family Medicine [address] [place] [address] ProviderChip MD [address] [place] [address] Social History Tobacco Use Types [...] - Historical ProviderMD - 10/11/2019 10:00 AM NEWSPAPER EDITOR Consult Phone Call Documentation Entered On: 10/11/2019 17:58 EST Performed On: 10/11/2019 10:00 EST by Urszula Zayas Operations Support Specialist-Health Unit Coord Phone Call for Consults Consult Phone Call/Page Attempt : Second call Consult Reason : PNA Consult, Additional Information : Dr. Pollard concierge Urszula Zayas, Operations Support Specialist-Health Unit Coord - 10/11/2019 17:58 EST documented in this encounter Plan of Treatment Not on file documented as of this encounter Visit Diagnoses Not on filedocumented in this encounter
--- OUTSIDE RECORDS SUMMARY | 2025-03-21 12:03 | XMS_ITS | Encounter Summary ---
Author Organization [employer] ([place], [place], [place], [place]) Address [address] [place] [address] Care Team Providers Care Structural Steel Detailer Name Role Phone Unavailable Primary Care Provider Unavailabl e Encounter Details Date Type Department Care Team (Late st Contact Info) Description 10/12/2019 Transcribed Document [facility] [place] Family Medicine [address] [place] [address] ProviderChip MD [address] [place] [address] Social History Tobacco Use Types [...] - Historical ProviderMD - 10/12/2019 3:19 PM AUDIOLOGIST UM Authorization Entered On: 10/12/2019 15:20 EST Performed On: 10/12/2019 15:19 EST by SALLY KAUR, Trimmer Climber Primary Insurance Authorization Authorization and Policy Numbers : Insurance 1 Health Plan: [facility] Policy Number: [id number] Authorization Number: Insurance Primary Name : [facility] Policy Number: [id number] Authorization Status-Primary : Awaiting callback Auth/Referral Contact Name-Primary : [place] Authorized Service Begin Date-Primary : 10/11/2019 EST Authorization Comments-Primary : per call from [facility] with [facility]. Denied as not meeting INPT. Will also fax us a denial letter with appeal info. [facility]# [phone] Historical Authorization Comments-Primary : No Authorization Comments Found SALLY KAUR, Trimmer Climber - 10/12/2019 15:19 EST Electronically signed by Interface, [facility] Conversion Lumber Carrier Cerner at 12/17/2022 6:19 PM CDT documented in this encounter Plan of Treatment Not on file documented as of this encounter Visit Diagnoses Not on filedocumented in this encounter
--- OUTSIDE RECORDS SUMMARY | 2025-03-21 12:03 | XMS_ITS | Encounter Summary ---
Author Organization [employer] ([place], [place], [place], [place]) Address [address] [place] [address] Care Team Providers Care Regulator Assembler Name Role Phone Unavailable Primary Care Provider Unavailabl e Encounter Details Date Type Department Care Team (Late st Contact Info) Description 10/11/2019 Transcribed Document [facility] [place] Family Medicine [address] [place] [address] ProviderChip MD [address] [place] [address] Social History Tobacco Use Types [...] - Historical ProviderMD - 10/11/2019 5:33 PM UNIVERSAL BANKER DATE OF ADMISSION: 10/11/2019 PRIMARY CARE PHYSICIAN: [...] was abnormal. The patient was transferred to [facility] for infectious disease and pulmonary [...] was reviewed. Critical time spent, 55 minutes. /[id number] MD AYUSH Lantigua/MILLY / AYUSH / DONNA documented in this encounter Plan of Treatment Not on file documented as of this encounter Visit Diagnoses Not on filedocumented in this encounter
--- OUTSIDE RECORDS SUMMARY | 2025-03-21 12:03 | XMS_ITS | Encounter Summary ---
Author Organization [employer] ([place], [place], [place], [place]) Address [address] [place] [address] Care Team Providers Care Sash Maker Name Role Phone Unavailable Primary Care Provider Unavailabl e Encounter Details Date Type Department Care Team (Late st Contact Info) Description 10/24/2019 Transcribed Document [facility] [place] [address] [place] [address] ProviderChip MD [address] [place] [address] Social History Tobacco Use Types [...] - Historical ProviderMD - 10/24/2019 1:05 PM SAP BW ARCHITECT UM Authorization Entered On: 10/24/2019 13:05 EST Performed On: 10/24/2019 13:05 EST by CONSUELO JAMES RN Primary Insurance Authorization Authorization and Policy Numbers : Insurance 1 Health Plan: [facility] Policy Number: [id number] Authorization Number: Insurance Primary Name : [facility] Policy Number: [id number] Authorization Status-Primary : Denial - admission Auth/Referral [...] a denial letter with appeal info.[facility] ph# [phone] (SALLY KAUR, Sat Math Tutor 10/12/2019 15:19) CONSUELO JAMES, ADDY - 10/24/2019 13:05 EST Electronically signed by Barbara [facility] Conversion Cell Operation Supervisor Cerner at 12/17/2022 6:34 PM CDT documented in this encounter Plan of Treatment Not on file documented as of this encounter Visit Diagnoses Not on filedocumented in this encounter
--- OUTSIDE RECORDS SUMMARY | 2025-03-21 12:03 | XMS_ITS | Encounter Summary ---
Author Organization [employer] ([place], [place], [place], [place]) Address [address] [place] [address] Care Team Providers Care Principal Java Developer Name Role Phone Unavailable Primary Care Provider Unavailabl e Encounter Details Date Type Department Care Team (Late st Contact Info) Description 10/11/2019 Transcribed Document [facility] [place] [address] [place] [address] ProviderChip MD [address] [place] [address] Social History Tobacco Use Types [...] - Historical ProviderMD - 10/11/2019 7:03 AM MANAGER FINANCIAL REPORTING Consult Phone Call Documentation Entered On: 10/11/2019 16:54 EST Performed On: 10/11/2019 7:03 EST by Urszula Zayas, [facility] Unit Coord Phone Call for Consults Consult Phone Call/Page Attempt : First call Consult Reason : Lung Cavity? Provider Team Notified Name : Pulmonary medicine Consult, Additional Information : Call was answered and hung up upon Urszula Zayas, [facility] Unit Coord - 10/11/2019 16:54 EST documented in this encounter Plan of Treatment Not on file documented as of this encounter Visit Diagnoses Not on filedocumented in this encounter
--- OUTSIDE RECORDS SUMMARY | 2025-03-21 12:03 | XMS_ITS | Clinical Summary ---
Author Organization [employer] ([place], [place], [place], [place]) Address [address] [place] [address] Care Team Providers Care Geology Associate Name Role Phone Unavailable Primary Care [...]
--- OUTSIDE RECORDS SUMMARY | 2025-03-21 12:03 | XMS_ITS | Encounter Summary ---
Author Organization [email or web address] ([place], [place], [place], [place]) Address [address] [place] [address] Care Team Providers Care Medical Historian Name Role Phone Unavailable Primary Care Provider Unavailabl e Encounter Details Date Type Department Care Team (Late st Contact Info) Description 10/24/2019 Transcribed Document [facility] [place] Family Medicine [facility] [place] [address] ProviderChip MD [address] [place] [address] Social History Tobacco Use Types [...] - Historical ProviderMD - 10/24/2019 11:34 AM JUNIOR NETWORK ADMINISTRATOR UM Authorization Entered On: 10/24/2019 11:34 EST Performed On: 10/24/2019 11:34 EST by CONSUELO JAMES RN Primary Insurance Authorization Authorization and Policy Numbers : Insurance 1 Health Plan: [facility] Policy Number: [id number] Authorization Number: Insurance Primary Name : [facility] Policy Number: [id number] Authorization Status-Primary : Denial - admission Auth/Referral [...] fax us a denial letter with appeal info.[facility]# [phone] (SALLY KAUR, Lab Clerk 10/12/2019 15:19) CONSUELO JAMES RN - 10/24/2019 11:34 EST documented in this encounter Plan of Treatment Not on file documented as of this encounter Visit Diagnoses Not on filedocumented in this encounter
--- OUTSIDE RECORDS SUMMARY | 2025-03-21 12:03 | XMS_ITS | Encounter Summary ---
Author Organization [employer] ([place], [place], [place], [place]) Address [address] [place] [address] Care Team Providers Care Cement And Concrete Plant Worker Name Role Phone Unavailable Primary Care Provider Unavailabl e Encounter Details Date Type Department Care Team (Late st Contact Info) Description 10/12/2019 Transcribed Document [facility] [place] Family Medicine [address] [place] [address] ProviderChip MD [address] [place] [address] Social History Tobacco Use Types [...] - Historical ProviderMD - 10/12/2019 3:20 PM AUDIO VISUAL PRODUCTION SPECIALIST UM Authorization Entered On: 10/12/2019 15:21 EST Performed On: 10/12/2019 15:20 EST by SALLY KAUR, Gas Manager Primary Insurance Authorization Authorization and Policy Numbers : Insurance 1 Health Plan: [facility] Policy Number: [id number] Authorization Number: Insurance Primary Name : [facility] Policy Number: [id number] Authorization Status-Primary : Awaiting callback Auth/Referral Contact Name-Primary : [place] Authorized Service Begin Date-Primary : 10/11/2019 EST Historical Authorization Comments-Primary : Comment 1: per call from [facility]. Denied as not meeting INPT. Will also fax us a denial letter with appeal info.P # [phone] (SALLY KAUR, Gas Manager 10/12/2019 15:19) SALLY KAUR, Gas Manager - 10/12/2019 15:20 EST Electronically signed by Barbara, [facility] Conversion Forward Air Controller/Air Officer Cerner at 12/17/2022 6:12 PM CDT documented in this encounter Plan of Treatment Not on file documented as of this encounter Visit Diagnoses Not on filedocumented in this encounter
--- OUTSIDE RECORDS SUMMARY | 2025-03-21 12:03 | XMS_ITS | Encounter Summary ---
Author Organization [employer] ([place], [place], [place], [place]) Address [address] [place] [address] Care Team Providers Care Glass Checker Name Role Phone Unavailable Primary Care Provider Unavailabl e Encounter Details Date Type Department Care Team (Late st Contact Info) Description 10/12/2019 Transcribed Document [facility] [place] Family Medicine [facility] [place] [address] ProviderChip MD [address] [place] [address] Social History Tobacco Use Types [...] - Chip ProviderMD - 10/12/2019 2:13 AM CIRCUIT BREAKER ASSEMBLER DATE OF DISCHARGE: 10/11/2019 The patient left [...] the lung. The patient was transferred to [facility] for Infectious Disease and Pulmonary consult. [...] Chart was reviewed. Time spent, 40 minutes. /[id number] MD AYUSH Lantigua/MILLY / AYUSH / DONNA /[id number] Electronically signed by Barbara [facility] Conversion Sewer Cleaner Cerner at 12/17/2022 6:11 PM CDT documented in this encounter Plan of Treatment Not on file documented as of this encounter Visit Diagnoses Not on filedocumented in this encounter
--- OUTSIDE RECORDS SUMMARY | 2025-03-21 12:03 | XMS_ITS | Encounter Summary ---
Author Organization [employer] ([place], [place], [place], [place]) Address [address] [place] [address] Care Team Providers Care Broomcorn Press Feeder Name Role Phone Unavailable Primary Care Provider Unavailabl e Encounter Details Date Type Department Care Team (Late st Contact Info) Description 10/12/2019 Transcribed Document [facility] [place] Family Medicine [address] [place] [address] ProviderChip MD [address] [place] [address] Social History Tobacco Use Types [...] - Historical ProviderMD - 10/12/2019 2:00 PM SURVEYOR INSTRUMENT ASSISTANT UM Authorization Entered On: 10/12/2019 14:00 EST Performed On: 10/12/2019 14:00 EST by PAPO EDWARDS Rn-Utilization Review Primary Insurance Authorization Authorization and Policy Numbers : Insurance 1 Health Plan: [facility] Policy Number: [id number] Authorization Number: Insurance Primary Name : [facility] Policy Number: [id number] Authorization Status-Primary : Awaiting callback Auth/Referral Contact Name-Primary : [place] Authorized Service Begin Date-Primary : 10/11/2019 EST Historical Authorization Comments-Primary : No Authorization Comments Found PAPO EDWARDS Rn-Utilization Review - 10/12/2019 14:00 EST Electronically signed by Barbara [facility] Conversion Set Up Mechanic Coil Winding Machines Cerner at 12/17/2022 6:29 PM CDT documented in this encounter Plan of Treatment Not on file documented as of this encounter Visit Diagnoses Not on filedocumented in this encounter
--- OUTSIDE RECORDS SUMMARY | 2025-03-21 12:03 | XMS_ITS | Encounter Summary ---
Author Organization [employer] ([place], [place], [place], [place]) Address [address] [place] [address] Care Team Providers Care Line Runner Name Role Phone Unavailable Primary Care Provider Unavailabl e Encounter Details Date Type Department Care Team (Late st Contact Info) Description 10/12/2019 Transcribed Document [facility] [place] Family Medicine [address] [place] [address] ProviderChip MD [address] [place] [address] Social History Tobacco Use Types [...] - Historical ProviderMD - 10/12/2019 8:56 AM UNIVERSITY PARTNERSHIP REP UM Authorization Entered On: 10/12/2019 8:56 EST Performed On: 10/12/2019 8:56 EST by PAPO EDWARDS Rn-Utilization Review Primary Insurance Authorization Authorization and Policy Numbers : Insurance 1 Health Plan: [facility] Policy Number: [id number] Authorization Number: Insurance Primary Name : [facility] Policy Number: [id number] Historical Authorization Comments-Primary : No Authorization Comments Found PAPO EDWARDS Rn-Utilization Review - 10/12/2019 8:56 EST documented in this encounter Plan of Treatment Not on file documented as of this encounter Visit Diagnoses Not on filedocumented in this encounter
--- OUTSIDE RECORDS SUMMARY | 2025-03-21 12:03 | XMS_ITS | Encounter Summary ---
Author Organization [employer] ([place], [place], [place], [place]) Address [address] [place] [address] Care Team Providers Care Dinkey Operator Slag Name Role Phone Unavailable Primary Care Provider Unavailabl e Encounter Details Date Type Department Care Team (Late st Contact Info) Description 10/18/2019 Transcribed Document [facility] [place] [address] [place] [address] ProviderChip MD [address] [place] [address] Social History Tobacco Use Types [...] - Historical ProviderMD - 10/18/2019 2:01 PM RADIATION CONTROL SPECIALIST UM Authorization Entered On: 10/18/2019 14:01 EST Performed On: 10/18/2019 14:01 EST by Kym Kim, Food And Beverage Server Primary Insurance Authorization Authorization and Policy Numbers : Insurance 1 Health Plan: [facility] Policy Number: [id number] Authorization Number: Insurance Primary Name : [facility] Policy Number: [id number] Authorization Status-Primary : Denial - admission Auth/Referral Contact Name-Primary : DC + Authorized Service Begin Date-Primary : 10/11/2019 EST Historical Authorization Comments-Primary : Comment 1: Emailed denial letter, p2p form, and MCG to RD/[facility] (CONSUELO JAMES RN 10/13/2019 10:03) Comment 2: per call from [facility] with [facility]. Denied as not meeting INPT. Will also fax us a denial letter with appeal info.[facility]# [phone] (SALLY KAUR, Medical Scribe 10/12/2019 15:19) Kym Kim, Food And Beverage Server - 10/18/2019 14:01 EST Electronically signed by Barbara [facility] Conversion Media Traffic Manager Cerner at 12/17/2022 6:23 PM CDT documented in this encounter Plan of Treatment Not on file documented as of this encounter Visit Diagnoses Not on filedocumented in this encounter
--- OUTSIDE RECORDS SUMMARY | 2025-03-21 12:03 | XMS_ITS | Encounter Summary ---
Author Organization [employer] ([place], [place], [place], [place]) Address [address] [place] [address] Care Team Providers Care Trimming Assembler Name Role Phone Unavailable Primary Care Provider Unavailabl e Encounter Details Date Type Department Care Team (Late st Contact Info) Description 10/11/2019 Transcribed Document [facility] [place] Family Medicine [address] [place] [address] ProviderChip MD [address] [place] [address] Social History Tobacco Use Types [...] - Historical Provider, - 10/11/2019 3:11 PM STATIONARY ENGINEER REFRIGERATION Admission History, Adult Entered On: 10/11/2019 17:00 [...] on Unit : Stretcher Legal Guardian : automotive glass technician Legal Guardian : No Support Person/Patient Marine Painter : No Contact Password : 1111 Want Family/Rep/Phys Notified of Admit : No Emergency Contact #1 : Yuriy Lewis Emergency Contact #1 Emergency Contact #1 Relationship : Emergency Contact #2 : Yuriy Lewis Emergency Contact #2 Emergency Contact #2 Relationship : Primary Language : Tongan Preferred Communication Mode : Verbal Communication Barrier [...] Scale Risk Level : 0-24 Low Risk [place] Fall Interventions : Adequate lighting, Assistive devices [...] Source : Stated Height Entry Format : [place] Height, Feet : 5 ft(Converted to: 152 [...] Body Mass Index : 25.4 kg/m2 (HI) [place] Body Weight : 50 kg Bay Lyons [...] Bay Lyons RN - 10/11/2019 19:12 EST [place] Suicide Severity Rating Scale (C-SSRS) CSSRS Past [...] Items : Other: Purse and cell phone scrap charger Comfort Items Disposition : Bedside, Declines to [...]
--- OUTSIDE RECORDS SUMMARY | 2025-03-21 12:03 | XMS_ITS | Encounter Summary ---
Author Organization [employer] ([place], [place], [place], [place]) Address [address] [place] [address] Care Team Providers Care Skin Drier Name Role Phone Unavailable Primary Care Provider Unavailabl e Encounter Details Date Type Department Care Team (Late st Contact Info) Description 10/13/2019 Transcribed Document [facility] [place] [address] [place] [address] ProviderChip MD [address] [place] [address] Social History Tobacco Use Types [...] - Historical ProviderMD - 10/13/2019 10:03 AM ASSISTANT TRACK COACH UM Authorization Entered On: 10/13/2019 10:03 EST Performed On: 10/13/2019 10:03 EST by CONSUELO JAMES RN Primary Insurance Authorization Authorization and Policy Numbers : Insurance 1 Health Plan: [facility] Policy Number: [id number] Authorization Number: Insurance Primary Name : [facility] Policy Number: [id number] Authorization Status-Primary : Denial - admission Auth/Referral Contact Name-Primary : [place] Authorized Service Begin Date-Primary : 10/11/2019 EST Authorization Comments-Primary : Emailed denial letter, p2p form, and MCG to RD/[facility] Historical Authorization Comments-Primary : Comment 1: per call from [facility] with [facility]. Denied as not meeting INPT. Will also fax us a denial letter with appeal info.[facility] ph# [phone] (SALLY KAUR, Commercial Credit Reviewer 10/12/2019 15:19) CONSUELO JAMES RN - 10/13/2019 10:03 EST documented in this encounter Plan of Treatment Not on file documented as of this encounter Visit Diagnoses Not on filedocumented in this encounter
--- OUTSIDE RECORDS SUMMARY | 2025-03-21 12:04 | XMS_ITS | Referral Summary ---
Author Organization [employer] ([place], [place], [place], [place]) Address [address] [place] [address] Care Team Providers Care Quantitative Analyst Developer Name Role Phone Unavailable Primary Care [...]
--- OUTSIDE RECORDS SUMMARY | 2025-03-21 12:04 | XMS_ITS | Encounter Summary ---
Author Organization [employer] ([place], [place], [place], [place]) Address [address] [place] [address] Care Team Providers Care Yoker Name Role Phone Unavailable Primary Care Provider Unavailabl e Encounter Details Date Type Department Care Team (Late st Contact Info) Description 10/12/2019 Transcribed Document [facility] [place] Family Medicine [address] [place] [address] ProviderChip MD [address] [place] [address] Social History Tobacco Use Types [...] - Historical ProviderMD - 10/12/2019 1:58 PM PHYSICIAN ALLERGIST IMMUNOLOGIST UM Authorization Entered On: 10/12/2019 13:58 EST Performed On: 10/12/2019 13:58 EST by Kym Kim Wildlife Ecology Professor Primary Insurance Authorization Authorization and Policy Numbers : Insurance 1 Health Plan: [facility] Policy Number: [id number] Authorization Number: Insurance Primary Name : [facility] Policy Number: [id number] Auth/Referral Contact Name-Primary : [place] Historical Authorization Comments-Primary : No Authorization Comments Found Kym Kim, Wildlife Ecology Professor - 10/12/2019 13:58 EST Electronically signed by Barbara [facility] Conversion Helmet Hat Brim Cutter Cerner at 12/17/2022 6:10 PM CDT documented in this encounter Plan of Treatment Not on file documented as of this encounter Visit Diagnoses Not on filedocumented in this encounter
== END 2025-03-20 23:59 | disposition home or self-care (01) ==
LOC: LAB.DROPOF 03-21 12:02
PROVIDERS: PCP Nurse Practitioner Family; Visit Provider Nurse Practitioner Family
DX: A49.8 Other bacterial infections of unspecified site (principal)
CPT/HCPCS: 87086

== ENCOUNTER 2025-03-23 13:18 | Outpatient (CLI) | payer OTHER, SELFPAY ==
--- OUTSIDE RECORDS SUMMARY | 2025-03-27 13:20 | XMS_ITS | Encounter Summary ---
Author Organization [employer] ([place], [place], [place], [place]) Address [address] [place] [address] Care Team Providers Care Exerciser Name Role Phone Unavailable Primary Care Provider Unavailabl e Encounter Details Date Type Department Care Team (Late st Contact Info) Description 10/11/2019 Transcribed Document [facility] [place] Family Medicine [address] [place] [address] ProviderChip MD [address] [place] [address] Social History Tobacco Use Types [...] - Historical ProviderMD - 10/11/2019 10:00 AM OPERATOR CATALYST CONCENTRATION Consult Phone Call Documentation Entered On: 10/11/2019 17:58 EST Performed On: 10/11/2019 10:00 EST by Urszula Zayas Physics Instructor-Health Unit Coord Phone Call for Consults Consult Phone Call/Page Attempt : Second call Consult Reason : PNA Consult, Additional Information : Dr. Pollard communication electronic technician Urszula Zayas, Physics Instructor-Health Unit Coord - 10/11/2019 17:58 EST documented in this encounter Plan of Treatment Not on file documented as of this encounter Visit Diagnoses Not on filedocumented in this encounter
--- OUTSIDE RECORDS SUMMARY | 2025-03-27 13:20 | XMS_ITS | Encounter Summary ---
Author Organization [employer] ([place], [place], [place], [place]) Address [address] [place] [address] Care Team Providers Care Director Franchise Sales Name Role Phone Unavailable Primary Care Provider Unavailabl e Encounter Details Date Type Department Care Team (Late st Contact Info) Description 10/12/2019 Transcribed Document [facility] [place] [address] [place] [address] ProviderChip MD [address] [place] [address] Social History Tobacco Use Types [...] - Historical ProviderMD - 10/12/2019 3:20 PM INDUSTRY OPERATIONS INVESTIGATOR UM Authorization Entered On: 10/12/2019 15:21 EST Performed On: 10/12/2019 15:20 EST by SALLY KAUR, Financial Aid Counselor Primary Insurance Authorization Authorization and Policy Numbers : Insurance 1 Health Plan: [facility] Policy Number: [id number] Authorization Number: Insurance Primary Name : [facility] Policy Number: [id number] Authorization Status-Primary : Awaiting callback Auth/Referral Contact Name-Primary : [place] Authorized Service Begin Date-Primary : 10/11/2019 EST Historical Authorization Comments-Primary : Comment 1: per call from [facility] with [facility]. Denied as not meeting INPT. Will also fax us a denial letter with appeal info.P # [phone] (SALLY KAUR, Financial Aid Counselor 10/12/2019 15:19) SALLY KAUR, Financial Aid Counselor - 10/12/2019 15:20 EST Electronically signed by Barbara, [facility] Conversion Emergency Veterinary Assistant Cerner at 12/17/2022 6:12 PM CDT documented in this encounter Plan of Treatment Not on file documented as of this encounter Visit Diagnoses Not on filedocumented in this encounter
--- OUTSIDE RECORDS SUMMARY | 2025-03-27 13:20 | XMS_ITS | Encounter Summary ---
Author Organization [employer] ([place], [place], [place], [place]) Address [address] [place] [address] Care Team Providers Care Program Planner Name Role Phone Unavailable Primary Care Provider Unavailabl e Encounter Details Date Type Department Care Team (Late st Contact Info) Description 10/13/2019 Transcribed Document [facility] [place] Family Medicine [address] [place] [address] ProviderChip MD [address] [place] [address] Social History Tobacco Use Types [...] - Historical ProviderMD - 10/13/2019 10:03 AM SUPERVISOR COLOR PASTE MIXING UM Authorization Entered On: 10/13/2019 10:03 EST Performed On: 10/13/2019 10:03 EST by CONSUELO JAMES RN Primary Insurance Authorization Authorization and Policy Numbers : Insurance 1 Health Plan: [facility] Policy Number: [id number] Authorization Number: Insurance Primary Name : [facility] Policy Number: [id number] Authorization Status-Primary : Denial - admission Auth/Referral Contact Name-Primary : [place] Authorized Service Begin Date-Primary : 10/11/2019 EST Authorization Comments-Primary : Emailed denial letter, p2p form, and MCG to [facility] Historical Authorization Comments-Primary : Comment 1: per call from [facility] with [facility]. Denied as not meeting INPT. Will also fax us a denial letter with appeal info.[facility] ph# [phone] (SALLY KAUR, Business Development Coordinator 10/12/2019 15:19) CONSUELO JAMES RN - 10/13/2019 10:03 EST documented in this encounter Plan of Treatment Not on file documented as of this encounter Visit Diagnoses Not on filedocumented in this encounter
--- OUTSIDE RECORDS SUMMARY | 2025-03-27 13:20 | XMS_ITS | Encounter Summary ---
Author Organization [employer] ([place], [place], [place], [place]) Address [address] [place] [address] Care Team Providers Care Well Blower Name Role Phone Unavailable Primary Care Provider Unavailabl e Encounter Details Date Type Department Care Team (Late st Contact Info) Description 10/24/2019 Transcribed Document [facility] [place] [address] [place] [address] ProviderChip MD [address] [place] [address] Social History Tobacco Use Types [...] - Historical ProviderMD - 10/24/2019 1:05 PM BONE CHAR KILN TENDER UM Authorization Entered On: 10/24/2019 13:05 EST Performed On: 10/24/2019 13:05 EST by CONSUELO JAMES RN Primary Insurance Authorization Authorization and Policy Numbers : Insurance 1 Health Plan: [facility] Policy Number: [id number] Authorization Number: Insurance Primary Name : [facility] Policy Number: [id number] Authorization Status-Primary : Denial - admission Auth/Referral Contact Name-Primary : [place] + Authorized Service Begin Date-Primary : 10/11/2019 EST Authorization Comments-Primary : Per GRETCHEN aMy agrees with Observation. Emailed to billing. Historical [...] a denial letter with appeal info.[facility] ph# [phone] (SALLY KAUR, Nursing Program Chair 10/12/2019 15:19) CONSUELO JAMES, ADDY - 10/24/2019 13:05 EST Electronically signed by Barbara [facility] Conversion Projection Engineer Cerner at 12/17/2022 6:34 PM CDT documented in this encounter Plan of Treatment Not on file documented as of this encounter Visit Diagnoses Not on filedocumented in this encounter
--- OUTSIDE RECORDS SUMMARY | 2025-03-27 13:20 | XMS_ITS | Encounter Summary ---
Author Organization [employer] ([place], [place], [place], [place]) Address [address] [place] [address] Care Team Providers Care Hazmat Cdl Driver Name Role Phone Unavailable Primary Care Provider Unavailabl e Encounter Details Date Type Department Care Team (Late st Contact Info) Description 10/12/2019 Transcribed Document [facility] [place] [address] [place] [address] ProviderChip MD [address] [place] [address] Social History Tobacco Use Types [...] - Historical ProviderMD - 10/12/2019 8:56 AM LAP WINDER UM Authorization Entered On: 10/12/2019 8:56 EST Performed On: 10/12/2019 8:56 EST by PAPO EDWARDS Rn-Utilization Review Primary Insurance Authorization Authorization and Policy Numbers : Insurance 1 Health Plan: [facility] Policy Number: [id number] Authorization Number: Insurance Primary Name : [facility] Policy Number: [id number] Historical Authorization Comments-Primary : No Authorization Comments Found PAPO EDWARDS Rn-Utilization Review - 10/12/2019 8:56 EST documented in this encounter Plan of Treatment Not on file documented as of this encounter Visit Diagnoses Not on filedocumented in this encounter
--- OUTSIDE RECORDS SUMMARY | 2025-03-27 13:20 | XMS_ITS | Encounter Summary ---
Author Organization [employer] ([place], [place], [place], [place]) Address [address] [place] [address] Care Team Providers Care Public Relations Supervisor Name Role Phone Unavailable Primary Care Provider Unavailabl e Encounter Details Date Type Department Care Team (Late st Contact Info) Description 10/12/2019 Transcribed Document [facility] [place] Family Medicine [facility] [place] [address] ProviderChip MD [address] [place] [address] Social History Tobacco Use Types [...] - Chip ProviderMD - 10/12/2019 2:13 AM DE ICER FINISHER DATE OF DISCHARGE: 10/11/2019 The patient left [...] the lung. The patient was transferred to [facility] for Infectious Disease and Pulmonary consult. The [...] Chart was reviewed. Time spent, 40 minutes. /[id number] MD AYUSH Lantigua/MILLY / AYUSH / DONNA /[id number] Electronically signed by Barbara [facility] Conversion Cashier And Salesperson Cerner at 12/17/2022 6:11 PM CDT documented in this encounter Plan of Treatment Not on file documented as of this encounter Visit Diagnoses Not on filedocumented in this encounter
--- OUTSIDE RECORDS SUMMARY | 2025-03-27 13:20 | XMS_ITS | Encounter Summary ---
Author Organization [employer] ([place], [place], [place], [place]) Address [address] [place] [address] Care Team Providers Care Rerecording Mixer Name Role Phone Unavailable Primary Care Provider Unavailabl e Encounter Details Date Type Department Care Team (Late st Contact Info) Description 10/11/2019 Transcribed Document [facility] [place] Family Medicine [address] [place] [address] ProviderChip MD [address] [place] [address] Social History Tobacco Use Types [...] - Historical ProviderMD - 10/11/2019 7:03 AM WIRE RIGGER Consult Phone Call Documentation Entered On: 10/11/2019 16:54 EST Performed On: 10/11/2019 7:03 EST by Urszula Zayas, [facility] Unit Coord Phone Call for Consults Consult Phone Call/Page Attempt : First call Consult Reason : Lung Cavity? Provider Team Notified Name : Pulmonary medicine Consult, Additional Information : Call was answered and hung up upon Urszula Zayas, [facility] Unit Coord - 10/11/2019 16:54 EST documented in this encounter Plan of Treatment Not on file documented as of this encounter Visit Diagnoses Not on filedocumented in this encounter
--- OUTSIDE RECORDS SUMMARY | 2025-03-27 13:20 | XMS_ITS | Encounter Summary ---
Author Organization [employer] ([place], [place], [place], [place]) Address [address] [place] [address] Care Team Providers Care City Recorder Name Role Phone Unavailable Primary Care Provider Unavailabl e Encounter Details Date Type Department Care Team (Late st Contact Info) Description 10/11/2019 Transcribed Document [facility] [place] [address] [place] [address] ProviderChip MD [address] [place] [address] Social History Tobacco Use Types [...] - Historical ProviderMD - 10/11/2019 5:33 PM NEWS OPERATIONS MANAGER DATE OF ADMISSION: 10/11/2019 PRIMARY CARE PHYSICIAN: [...] was abnormal. The patient was transferred to [facility] for infectious disease and pulmonary evaluation. The [...] was reviewed. Critical time spent, 55 minutes. /[id number] MD AYUSH Lantigua/MILLY / AYUSH / DONNA documented in this encounter Plan of Treatment Not on file documented as of this encounter Visit Diagnoses Not on filedocumented in this encounter
--- OUTSIDE RECORDS SUMMARY | 2025-03-27 13:20 | XMS_ITS | Clinical Summary ---
Author Organization [employer] ([place], [place], [place]) Address [address] [place] [address] Care Team Providers Care Information Clerk Cashier Name Role Phone Unavailable Primary Care Provider [...]
--- OUTSIDE RECORDS SUMMARY | 2025-03-27 13:20 | XMS_ITS | Referral Summary ---
Author Organization [facility] ([place], [place], [place], [place]) Address [address] [place] [address] Care Team Providers Care Supervisor Chlorine Liquefaction Name Role Phone Unavailable Primary Care Provider [...]
--- OUTSIDE RECORDS SUMMARY | 2025-03-27 13:20 | XMS_ITS | Patient Health Record ---
Author Organization [facility] Address [address] [place] [address] Care Team Providers Care Lead Printer Name Role Phone Rosa Enriquez Primary Care Provider [phone] Allergies Allergen (clinical drug ingredient) Drug/Non Drug Allergy documented on EMR Reaction Allergy Type Onset Date Status amoxicillin Amoxicillin Unknown Drug Allergy Act jalil Penicillin Unknown Drug Allergy Active Reason For Referral No Information Problems Problem Type SNOMED Code ICD Code Onset Dates Problem Status W/U Status Risk Notes Problem Alcohol dependence (62945879) Uncomplicated alcohol dependence (F10.20) Active confirmed Problem Opioid dependence (60826523) Uncomplicated opioid dependence (F11.20) Active confirmed Plan Of Treatment No Information Insurance Providers Payer Name Payer Address Payer Phone Subscriber Number Group Number Insured Name Patient Relationship to Insured Coverage Start Date Coverage End Date [facility] Medicaid [address] [address] [place] [address] [id number] Hellen Todd Self - patient is the insured 2 Medical (General) History Medical History History ICD Code hypertension anxiety depression Surgical History Surgery Date(Month/Year) Section kidney stone surgery Hospitalization History Reason Date(Month/Year) childbirth
--- OUTSIDE RECORDS SUMMARY | 2025-03-27 13:20 | XMS_ITS | Encounter Summary ---
Author Organization [employer] ([place], [place], [place], [place]) Address [address] [place] [address] Care Team Providers Care Automatic Splicing Machine Operator Name Role Phone Unavailable Primary Care Provider Unavailabl e Encounter Details Date Type Department Care Team (Late st Contact Info) Description 10/12/2019 Transcribed Document [facility] [place] Family Medicine [address] [place] [address] ProviderChip MD [address] [place] [address] Social History Tobacco Use Types [...] - Historical ProviderMD - 10/12/2019 3:19 PM CERAMIC DESIGN ENGINEER UM Authorization Entered On: 10/12/2019 15:20 EST Performed On: 10/12/2019 15:19 EST by SALLY KAUR, Body Team Member Primary Insurance Authorization Authorization and Policy Numbers : Insurance 1 Health Plan: [facility] Policy Number: [id number] Authorization Number: Insurance Primary Name : [facility] Policy Number: [id number] Authorization Status-Primary : Awaiting callback Auth/Referral Contact Name-Primary : [place] Authorized Service Begin Date-Primary : 10/11/2019 EST Authorization Comments-Primary : per call from [facility] with [facility]. Denied as not meeting INPT. Will also fax us a denial letter with appeal info. [facility]# [phone] Historical Authorization Comments-Primary : No Authorization Comments Found SALLY KAUR, Body Team Member - 10/12/2019 15:19 EST Electronically signed by Interface, [facility] Conversion Aircraft Engine Cylinder Mechanic Cerner at 12/17/2022 6:19 PM CDT documented in this encounter Plan of Treatment Not on file documented as of this encounter Visit Diagnoses Not on filedocumented in this encounter
--- OUTSIDE RECORDS SUMMARY | 2025-03-27 13:20 | XMS_ITS | Encounter Summary ---
Author Organization [employer] ([place], [place], [place], [place]) Address [address] [place] [address] Care Team Providers Care Surgical Appliance Fitter Name Role Phone Unavailable Primary Care Provider Unavailabl e Encounter Details Date Type Department Care Team (Late st Contact Info) Description 10/12/2019 Transcribed Document [facility] [place] Family Medicine [address] [place] [address] ProviderChip MD [address] [place] [address] Social History Tobacco Use Types [...] - Historical ProviderMD - 10/12/2019 2:00 PM CEMENT FINISHER HELPER UM Authorization Entered On: 10/12/2019 14:00 EST Performed On: 10/12/2019 14:00 EST by PAPO EDWARDS Rn-Utilization Review Primary Insurance Authorization Authorization and Policy Numbers : Insurance 1 Health Plan: [facility] Policy Number: [id number] Authorization Number: Insurance Primary Name : [facility] Policy Number: [id number] Authorization Status-Primary : Awaiting callback Auth/Referral Contact Name-Primary : [place] Authorized Service Begin Date-Primary : 10/11/2019 EST Historical Authorization Comments-Primary : No Authorization Comments Found PAPO EDWARDS Rn-Utilization Review - 10/12/2019 14:00 EST Electronically signed by Barbara [facility] Conversion Sign Shop Supervisor Cerner at 12/17/2022 6:29 PM CDT documented in this encounter Plan of Treatment Not on file documented as of this encounter Visit Diagnoses Not on filedocumented in this encounter
--- OUTSIDE RECORDS SUMMARY | 2025-03-27 13:20 | XMS_ITS | Encounter Summary ---
Author Organization [employer] ([place], [place], [place], [place]) Address [address] [place] [address] Care Team Providers Care Engineering Model Maker Name Role Phone Unavailable Primary Care Provider Unavailabl e Encounter Details Date Type Department Care Team (Late st Contact Info) Description 10/24/2019 Transcribed Document [facility] [place] Medicine [facility] [place] [address] ProviderChip MD [facility] [place] [address] Social History Tobacco Use Types [...] - Historical ProviderMD - 10/24/2019 11:34 AM MOLD CUTTING MACHINE OPERATOR UM Authorization Entered On: 10/24/2019 11:34 EST Performed On: 10/24/2019 11:34 EST by CONSUELO JAMES RN Primary Insurance Authorization Authorization and Policy Numbers : Insurance 1 Health Plan: [facility] Policy Number: [id number] Authorization Number: Insurance Primary Name : [facility] Policy Number: [id number] Authorization Status-Primary : Denial - admission Auth/Referral [...] fax us a denial letter with appeal info.[facility]# [phone] (SALLY KAUR, Shovel Loader Operator 10/12/2019 15:19) CONSUELO JAMES RN - 10/24/2019 11:34 EST Electronically signed by Barbara, [facility] Conversion Rn Obgyn Cerner at 12/17/2022 6:25 PM CDT documented in this encounter Plan of Treatment Not on file documented as of this encounter Visit Diagnoses Not on filedocumented in this encounter
--- OUTSIDE RECORDS SUMMARY | 2025-03-27 13:20 | XMS_ITS | Encounter Summary ---
Author Organization [employer] ([place], [place], [place], [place]) Address [address] [place] [address] Care Team Providers Care Power Cutting Machine Operator Name Role Phone Unavailable Primary Care Provider Unavailabl e Encounter Details Date Type Department Care Team (Late st Contact Info) Description 10/18/2019 Transcribed Document [facility] Family Medicine [address] [place] [address] ProviderChip MD [address] [place] [address] Social History Tobacco Use Types [...] - Historical ProviderMD - 10/18/2019 2:01 PM MANAGER WATER WASTEWATER UM Authorization Entered On: 10/18/2019 14:01 EST Performed On: 10/18/2019 14:01 EST by Kym Kim, Data Warehousing Architect Primary Insurance Authorization Authorization and Policy Numbers : Insurance 1 Health Plan: [facility] Policy Number: [id number] Authorization Number: Insurance Primary Name : [facility] Policy Number: [id number] Authorization Status-Primary : Denial - admission Auth/Referral Contact Name-Primary : DC + Authorized Service Begin Date-Primary : 10/11/2019 EST Historical Authorization Comments-Primary : Comment 1: Emailed denial letter, p2p form, and MCG to [facility] (CONSUELO JAMES RN 10/13/2019 10:03) Comment 2: per call from [facility] with [facility]. Denied as not meeting INPT. Will also fax us a denial letter with appeal info.[facility]# [phone] (SALLY KAUR, Motor Vehicle License Clerk 10/12/2019 15:19) Kym Kim, Data Warehousing Architect - 10/18/2019 14:01 EST Electronically signed by Barbara [facility] Conversion Bio Medical Technician Cerner at 12/17/2022 6:23 PM CDT documented in this encounter Plan of Treatment Not on file documented as of this encounter Visit Diagnoses Not on filedocumented in this encounter
--- OUTSIDE RECORDS SUMMARY | 2025-03-27 13:20 | XMS_ITS | Encounter Summary ---
Author Organization [employer] ([place], [place], [place], [place]) Address [address] [place] [address] Care Team Providers Care Claims Configuration Analyst Name Role Phone Unavailable Primary Care Provider Unavailabl e Encounter Details Date Type Department Care Team (Late st Contact Info) Description 10/11/2019 Transcribed Document [facility] [place] Family Medicine [address] [place] [address] ProviderChip MD [address] [place] [address] Social History Tobacco Use Types [...] - Historical Provider, - 10/11/2019 3:11 PM AUTOMATIC DOOR MECHANIC Admission History, Adult Entered On: 10/11/2019 17:00 [...] on Unit : Stretcher Legal Guardian : normalizer Legal Guardian : No Support Person/Patient Bullet Swaging Machine Adjuster : No Contact Password : [id number] Family/Rep/Phys Notified of Admit : No Emergency Contact #1 : Yuriy Lewis Emergency Contact #1 Emergency Contact #1 Relationship : Emergency Contact #2 : Yuriy Lewis Emergency Contact #2 Emergency Contact #2 Relationship : Primary Language : Japanese Preferred Communication Mode : Verbal Communication Barrier [...] Scale Risk Level : 0-24 Low Risk [place] Fall Interventions : Adequate lighting, Assistive devices [...] Source : Stated Height Entry Format : [place] Height, Feet : 5 ft(Converted to: 152 [...] Body Mass Index : 25.4 kg/m2 (HI) [place] Body Weight : 50 kg Bay Lyons [...] Bay Lyons RN - 10/11/2019 19:12 EST [place] Suicide Severity Rating Scale (C-SSRS) CSSRS Past [...] Items : Other: Purse and cell phone service desk team lead Comfort Items Disposition : Bedside, Declines to [...]
--- OUTSIDE RECORDS SUMMARY | 2025-03-27 13:20 | XMS_ITS | Encounter Summary ---
Author Organization [employer] ([place], [place], [place], [place]) Address [address] [place] [address] Care Team Providers Care Patcher Wood Welder Name Role Phone Unavailable Primary Care Provider Unavailabl e Encounter Details Date Type Department Care Team (Late st Contact Info) Description 10/12/2019 Transcribed Document [facility] Family Medicine [address] [place] [address] ProviderChip MD [address] [place] [address] Social History Tobacco Use Types [...] - Historical ProviderMD - 10/12/2019 1:58 PM REFERRAL COORDINATOR UM Authorization Entered On: 10/12/2019 13:58 EST Performed On: 10/12/2019 13:58 EST by Kym Kim Fitness Coordinator Primary Insurance Authorization Authorization and Policy Numbers : Insurance 1 Health Plan: [facility] Policy Number: [id number] Authorization Number: Insurance Primary Name : [facility] Policy Number: [id number] Auth/Referral Contact Name-Primary : [place] Historical Authorization Comments-Primary : No Authorization Comments Found Kym Kim, Fitness Coordinator - 10/12/2019 13:58 EST Electronically signed by Barbara [facility] Conversion Oracle Hyperion Consultant Cerner at 12/17/2022 6:10 PM CDT documented in this encounter Plan of Treatment Not on file documented as of this encounter Visit Diagnoses Not on filedocumented in this encounter
== END 2025-03-23 23:59 ==
LOC: LAB.DROPOF 03-27 13:18
PROVIDERS: PCP Nurse Practitioner Family; Visit Provider Nurse Practitioner Family
DX: R82.90 Unspecified abnormal findings in urine (principal); R39.15 Urgency of urination
CPT/HCPCS: 87086

== ENCOUNTER 2025-04-11 14:05 | Outpatient (CLI) | payer OTHER, SELFPAY ==
--- OUTSIDE RECORDS SUMMARY | 2025-04-11 14:11 | XMS_ITS | Encounter Summary ---
Author Organization [employer] ([place], [place], [place], [place]) Address [address] [place] [address] Care Team Providers Care Telecom Sales Consultant Name Role Phone Unavailable Primary Care Provider Unavailabl e Encounter Details Date Type Department Care Team (Late st Contact Info) Description 10/12/2019 Transcribed Document [facility] [place] Family Medicine [facility] [place] [address] ProviderChip MD [address] [place] [address] Social History Tobacco Use Types [...] - Chip ProviderMD - 10/12/2019 2:13 AM SHANKER OUT DATE OF DISCHARGE: 10/11/2019 The patient left [...] lung. The patient was transferred to [facility] for Infectious Disease and Pulmonary consult. The [...] Chart was reviewed. Time spent, 40 minutes. /[id number] MD AYUSH Lantigua/MILLY / AYUSH / DONNA /[id number] Electronically signed by Barbara [facility] Conversion Rural Route Carrier Cerner at 12/17/2022 6:11 PM CDT documented in this encounter Plan of Treatment Not on file documented as of this encounter Visit Diagnoses Not on filedocumented in this encounter
--- OUTSIDE RECORDS SUMMARY | 2025-04-11 14:11 | XMS_ITS | Encounter Summary ---
Author Organization [employer] ([place], [place], [place], [place]) Address [address] [place] [address] Care Team Providers Care Media Account Executive Name Role Phone Unavailable Primary Care Provider Unavailabl e Encounter Details Date Type Department Care Team (Late st Contact Info) Description 10/12/2019 Transcribed Document [facility] [place] Family Medicine [address] [place] [address] ProviderChip MD [address] [place] [address] Social History Tobacco Use Types [...] - Historical ProviderMD - 10/12/2019 2:00 PM CERTIFIED TRAVEL COUNSELOR UM Authorization Entered On: 10/12/2019 14:00 EST Performed On: 10/12/2019 14:00 EST by PAPO EDWARDS Rn-Utilization Review Primary Insurance Authorization Authorization and Policy Numbers : Insurance 1 Health Plan: [facility] Policy Number: [id number] Authorization Number: Insurance Primary Name : [facility] Policy Number: [id number] Authorization Status-Primary : Awaiting callback Auth/Referral Contact Name-Primary : [place] Authorized Service Begin Date-Primary : 10/11/2019 EST Historical Authorization Comments-Primary : No Authorization Comments Found PAPO EDWARDS Rn-Utilization Review - 10/12/2019 14:00 EST Electronically signed by Barbara [facility] [place] Conversion Histopathologist Cerner at 12/17/2022 6:29 PM CDT documented in this encounter Plan of Treatment Not on file documented as of this encounter Visit Diagnoses Not on filedocumented in this encounter
--- OUTSIDE RECORDS SUMMARY | 2025-04-11 14:11 | XMS_ITS | Encounter Summary ---
Author Organization [employer] ([place], [place], [place], [place]) Address [address] [place] [address] Care Team Providers Care Care Administrative Tech Name Role Phone Unavailable Primary Care Provider Unavailabl e Encounter Details Date Type Department Care Team (Late st Contact Info) Description 10/18/2019 Transcribed Document [facility] [place] Family Medicine [address] [place] [address] ProviderChip MD [address] [place] [address] Social History Tobacco Use Types [...] - Historical ProviderMD - 10/18/2019 2:01 PM CHIEF TELEPHONE OPERATOR UM Authorization Entered On: 10/18/2019 14:01 EST Performed On: 10/18/2019 14:01 EST by Kym Kim, Nail Welter Primary Insurance Authorization Authorization and Policy Numbers : Insurance 1 Health Plan: [facility] Policy Number: [id number] Authorization Number: Insurance Primary Name : [facility] Policy Number: [id number] Authorization Status-Primary : Denial - admission Auth/Referral Contact Name-Primary : [place] + Authorized Service Begin Date-Primary : 10/11/2019 EST Historical Authorization Comments-Primary : Comment 1: Emailed denial letter, p2p form, and MCG to [facility] (CONSUELO JAMES RN 10/13/2019 10:03) Comment 2: per call from [facility] with [facility]. Denied as not meeting INPT. Will also fax us a denial letter with appeal info.[facility]# [phone] (SALLY KAUR, Research Test Engine Operator 10/12/2019 15:19) Kym Kim, Nail Welter - 10/18/2019 14:01 EST Electronically signed by Barbara [facility] Conversion Process Improvement Analyst Cerner at 12/17/2022 6:23 PM CDT documented in this encounter Plan of Treatment Not on file documented as of this encounter Visit Diagnoses Not on filedocumented in this encounter
--- OUTSIDE RECORDS SUMMARY | 2025-04-11 14:11 | XMS_ITS | Encounter Summary ---
Author Organization [employer] ([place], [place], [place], [place]) Address [address] [place] [address] Care Team Providers Care Merchandising Director Name Role Phone Unavailable Primary Care Provider Unavailabl e Encounter Details Date Type Department Care Team (Late st Contact Info) Description 10/12/2019 Transcribed Document [facility] [place] Family Medicine [address] [place] [address] ProviderChip MD [address] [place] [address] Social History Tobacco Use Types [...] - Historical ProviderMD - 10/12/2019 3:20 PM MOLASSES AND CARAMEL OPERATOR UM Authorization Entered On: 10/12/2019 15:21 EST Performed On: 10/12/2019 15:20 EST by SALLY KAUR, Farmworker Livestock Primary Insurance Authorization Authorization and Policy Numbers : Insurance 1 Health Plan: [facility] Policy Number: [id number] Authorization Number: Insurance Primary Name : [facility] Policy Number: [id number] Authorization Status-Primary : Awaiting callback Auth/Referral Contact Name-Primary : [place] Authorized Service Begin Date-Primary : 10/11/2019 EST Historical Authorization Comments-Primary : Comment 1: per call from [facility] with [facility]. Denied as not meeting INPT. Will also fax us a denial letter with appeal info.P # [phone] (SALLY KAUR, Farmworker Livestock 10/12/2019 15:19) SALLY KAUR, Farmworker Livestock - 10/12/2019 15:20 EST Electronically signed by Barbara, [facility] Conversion Field Horticultural Specialty Grower Cerner at 12/17/2022 6:12 PM CDT documented in this encounter Plan of Treatment Not on file documented as of this encounter Visit Diagnoses Not on filedocumented in this encounter
--- OUTSIDE RECORDS SUMMARY | 2025-04-11 14:11 | XMS_ITS | Encounter Summary ---
Author Organization [email or web address] ([place], [place], [place], [place]) Address [address] [place] [address] Care Team Providers Care Firer Boiler Name Role Phone Unavailable Primary Care Provider Unavailabl e Encounter Details Date Type Department Care Team (Late st Contact Info) Description 10/12/2019 Transcribed Document [facility] [place] Family Medicine [address] [place] [address] ProviderChip MD [address] [place] [address] Social History Tobacco Use Types [...] - Historical ProviderMD - 10/12/2019 8:56 AM LAMINATION MACHINE OPERATOR UM Authorization Entered On: 10/12/2019 8:56 EST Performed On: 10/12/2019 8:56 EST by PAPO EDWARDS Rn-Utilization Review Primary Insurance Authorization Authorization and Policy Numbers : Insurance 1 Health Plan: [facility] Policy Number: [id number] Authorization Number: Insurance Primary Name : [facility] Policy Number: [id number] Historical Authorization Comments-Primary : No Authorization Comments Found PAPO EDWARDS Rn-Utilization Review - 10/12/2019 8:56 EST documented in this encounter Plan of Treatment Not on file documented as of this encounter Visit Diagnoses Not on filedocumented in this encounter
--- OUTSIDE RECORDS SUMMARY | 2025-04-11 14:11 | XMS_ITS | Clinical Summary ---
Author Organization [employer] ([place], [place], [place], [place]) Address [address] [place] [address] Care Team Providers Care Ammonia Still Operator Name Role Phone Unavailable Primary Care [...]
--- OUTSIDE RECORDS SUMMARY | 2025-04-11 14:11 | XMS_ITS | Encounter Summary ---
Author Organization [employer] ([place], [place], [place], [place]) Address [address] [place] [address] Care Team Providers Care Farm Specialist Name Role Phone Unavailable Primary Care Provider Unavailabl e Encounter Details Date Type Department Care Team (Late st Contact Info) Description 10/11/2019 Transcribed Document [facility] [place] Family Medicine [address] [place] [address] ProviderChip MD [address] [place] [address] Social History Tobacco Use Types [...] - Historical ProviderMD - 10/11/2019 7:03 AM AUTOMOTIVE METALSMITH Consult Phone Call Documentation Entered On: 10/11/2019 16:54 EST Performed On: 10/11/2019 7:03 EST by Urszula Zayas, [facility] Unit Coord Phone Call for Consults Consult Phone Call/Page Attempt : First call Consult Reason : Lung Cavity? Provider Team Notified Name : Pulmonary medicine Consult, Additional Information : Call was answered and hung up upon Urszula Zayas, [facility] Unit Coord - 10/11/2019 16:54 EST documented in this encounter Plan of Treatment Not on file documented as of this encounter Visit Diagnoses Not on filedocumented in this encounter
--- OUTSIDE RECORDS SUMMARY | 2025-04-11 14:11 | XMS_ITS | Encounter Summary ---
Author Organization [employer] ([place], [place], [place], [place]) Address [address] [place] [address] Care Team Providers Care Life Science Technical Officer Name Role Phone Unavailable Primary Care Provider Unavailabl e Encounter Details Date Type Department Care Team (Late st Contact Info) Description 10/11/2019 Transcribed Document [facility] [place] Family Medicine [address] [place] [address] ProviderChip MD [address] [place] [address] Social History Tobacco Use [...] - Historical Provider, - 10/11/2019 3:11 PM AIRPORT MAINTENANCE CHIEF Admission History, Adult Entered On: 10/11/2019 17:00 [...] on Unit : Stretcher Legal Guardian : conveyor belt operator Legal Guardian : No Support Person/Patient Electrician Supervisor Substation : No Contact Password : [address] Family/Rep/Phys Notified of Admit : No Emergency Contact #1 : Yuriy Lewis Emergency Contact #1 Emergency Contact #1 Relationship : Emergency Contact #2 : Yuriy Lewis Emergency Contact #2 Emergency Contact #2 Relationship : Primary Language : [place]ican Preferred Communication Mode : Verbal Communication Barrier [...] Scale Risk Level : 0-24 Low Risk [place] Fall Interventions : Adequate lighting, Assistive devices [...] Source : Stated Height Entry Format : [place] Height, Feet : 5 ft(Converted to: 152 [...] Body Mass Index : 25.4 kg/m2 (HI) [place] Body Weight : 50 kg Bay Lyons [...] Bay Lyons RN - 10/11/2019 19:12 EST [place] Suicide Severity Rating Scale (C-SSRS) CSSRS Past [...] Items : Other: Purse and cell phone general repairer Comfort Items Disposition : Bedside, Declines to [...]
--- OUTSIDE RECORDS SUMMARY | 2025-04-11 14:11 | XMS_ITS | Encounter Summary ---
Author Organization [employer] ([place], [place], [place], [place]) Address [address] [place] [address] Care Team Providers Care Solar Electric/Photovoltaic Installer Name Role Phone Unavailable Primary Care Provider Unavailabl e Encounter Details Date Type Department Care Team (Late st Contact Info) Description 10/12/[address] [facility] [place] Family Medicine [address] [place] [address] ProviderChip MD [address] [place] [address] Social History Tobacco Use Types [...] - Historical ProviderMD - 10/12/2019 3:19 PM NUCLEAR EQUIPMENT TEST ENGINEER UM Authorization Entered On: 10/12/2019 15:20 EST Performed On: 10/12/2019 15:19 EST by SALLY KAUR, Press Pipe Inspector Primary Insurance Authorization Authorization and Policy Numbers : Insurance 1 Health Plan: [facility] Policy Number: [id number] Authorization Number: Insurance Primary Name : [facility] Policy Number: [id number] Authorization Status-Primary : Awaiting callback Auth/Referral Contact Name-Primary : [place] Authorized Service Begin Date-Primary : 10/11/2019 EST Authorization Comments-Primary : per call from [facility] with [facility]. Denied as not meeting INPT. Will also fax us a denial letter with appeal info. [facility]# [phone] Historical Authorization Comments-Primary : No Authorization Comments Found SALLY KAUR, Press Pipe Inspector - 10/12/2019 15:19 EST documented in this encounter Plan of Treatment Not on file documented as of this encounter Visit Diagnoses Not on filedocumented in this encounter
--- OUTSIDE RECORDS SUMMARY | 2025-04-11 14:12 | XMS_ITS | Encounter Summary ---
Author Organization [employer] ([place], [place], [place], [place]) Address [address] [place] [address] Care Team Providers Care Airport Ramp Agent Name Role Phone Unavailable Primary Care Provider Unavailabl e Encounter Details Date Type Department Care Team (Late st Contact Info) Description 10/13/2019 Transcribed Document [facility] [place] Family Medicine [address] [place] [address] ProviderChip MD [address] [place] [address] Social History Tobacco Use Types [...] - Historical ProviderMD - 10/13/2019 10:03 AM FACILITIES ENGINEERING MANAGER UM Authorization Entered On: 10/13/2019 10:03 EST Performed On: 10/13/2019 10:03 EST by CONSUELO JAMES RN Primary Insurance Authorization Authorization and Policy Numbers : Insurance 1 Health Plan: [facility] Policy Number: [id number] Authorization Number: Insurance Primary Name : [facility] Policy Number: [id number] Authorization Status-Primary : Denial - admission Auth/Referral Contact Name-Primary : [place] Authorized Service Begin Date-Primary : 10/11/2019 EST Authorization Comments-Primary : Emailed denial letter, p2p form, and MCG to [facility] Historical Authorization Comments-Primary : Comment 1: per call from [facility] with [facility]. Denied as not meeting INPT. Will also fax us a denial letter with appeal info.[facility] ph# [phone] (SALLY KAUR, International Account Executive 10/12/2019 15:19) CONSUELO JAMES RN - 10/13/2019 10:03 EST documented in this encounter Plan of Treatment Not on file documented as of this encounter Visit Diagnoses Not on filedocumented in this encounter
--- OUTSIDE RECORDS SUMMARY | 2025-04-11 14:12 | XMS_ITS | Encounter Summary ---
Author Organization [employer] ([place], [place], [place], [place]) Address [address] [place] [address] Care Team Providers Care Booky Name Role Phone Unavailable Primary Care Provider Unavailabl e Encounter Details Date Type Department Care Team (Late st Contact Info) Description 10/24/2019 Transcribed Document [facility] [place] Family Medicine [facility] [place] [address] ProviderChip MD [address] [place] [address] Social History Tobacco Use Types [...] - Historical ProviderMD - 10/24/2019 11:34 AM CHANNEL DIRECTOR UM Authorization Entered On: 10/24/2019 11:34 EST Performed On: 10/24/2019 11:34 EST by CONSUELO JAMES RN Primary Insurance Authorization Authorization and Policy Numbers : Insurance 1 Health Plan: [facility] Policy Number: [id number] Authorization Number: Insurance Primary Name : [facility] Policy Number: [id number] Authorization Status-Primary : Denial - admission Auth/Referral [...] fax us a denial letter with appeal info.[facility]# [phone] (SALLY KAUR, Product Development 10/12/2019 15:19) CONSUELO JAMES RN - 10/24/2019 11:34 EST Electronically signed by Barbara, [facility] Conversion Paper And Prints Restorer Cerner at 12/17/2022 6:25 PM CDT documented in this encounter Plan of Treatment Not on file documented as of this encounter Visit Diagnoses Not on filedocumented in this encounter
--- OUTSIDE RECORDS SUMMARY | 2025-04-11 14:12 | XMS_ITS | Encounter Summary ---
Author Organization [employer] ([place], [place], [place], [place]) Address [address] [place] [address] Care Team Providers Care Financial Representative Name Role Phone Unavailable Primary Care Provider Unavailabl e Encounter Details Date Type Department Care Team (Late st Contact Info) Description 10/11/2019 Transcribed Document [facility] [place] Family Medicine [address] [place] [address] ProviderChip MD [address] [place] [address] Social History Tobacco Use Types [...] - Historical ProviderMD - 10/11/2019 10:00 AM SKIP MINER Consult Phone Call Documentation Entered On: 10/11/2019 17:58 EST Performed On: 10/11/2019 10:00 EST by Urszula Zayas [place] Assembler-Health Unit Coord Phone Call for Consults Consult Phone Call/Page Attempt : Second call Consult Reason : PNA Consult, Additional Information : Dr. Plolard technical professional Urszula Zayas, [place] Assembler-Health Unit Coord - 10/11/2019 17:58 EST documented in this encounter Plan of Treatment Not on file documented as of this encounter Visit Diagnoses Not on filedocumented in this encounter
--- OUTSIDE RECORDS SUMMARY | 2025-04-11 14:12 | XMS_ITS | Patient Health Record ---
Author Organization [facility] Address [address] [place] [address] Care Team Providers Care Cupboard Builder Name Role Phone Rosa Enriquez Primary Care Provider Allergies Allergen (clinical drug ingredient) Drug/Non Drug Allergy documented on EMR Reaction Allergy Type Onset Date Status amoxicillin Amoxicillin Unknown Drug Allergy Act jalil Penicillin Unknown Drug Allergy Active Reason For Referral No Information Problems Problem Type SNOMED Code ICD Code Onset Dates Problem Status W/U Status Risk Notes Problem Alcohol dependence (27524268) Uncomplicated alcohol dependence (F10.20) Active confirmed Problem Opioid dependence (65821917) Uncomplicated opioid dependence (F11.20) Active confirmed Plan Of Treatment No Information Insurance Providers Payer Name Payer Address Payer Phone Subscriber Number Group Number Insured Name Patient Relationship to Insured Coverage Start Date Coverage End Date [facility] Medicaid [address] [address] [place] [address] [id number] Hellen Todd Self - patient is the insured 2 Medical (General) History Medical History History ICD Code hypertension anxiety depression Surgical History Surgery Date(Month/Year) Section kidney stone surgery Hospitalization History Reason Date(Month/Year) childbirth
--- OUTSIDE RECORDS SUMMARY | 2025-04-11 14:12 | XMS_ITS | Encounter Summary ---
Author Organization [employer] ([place], [place], [place], [place]) Address [address] [place] [address] Care Team Providers Care Decorating Instructor Name Role Phone Unavailable Primary Care Provider Unavailabl e Encounter Details Date Type Department Care Team (Late st Contact Info) Description 10/12/2019 Transcribed Document [facility] [place] Family Medicine [address] [place] [address] ProviderChip MD [address] [place] [address] Social History Tobacco Use Types [...] - Historical ProviderMD - 10/12/2019 1:58 PM JAIL KEEPER UM Authorization Entered On: 10/12/2019 13:58 EST Performed On: 10/12/2019 13:58 EST by Kym Kim Senior Qc Technician Primary Insurance Authorization Authorization and Policy Numbers : Insurance 1 Health Plan: [facility] Policy Number: [id number] Authorization Number: Insurance Primary Name : [facility] Policy Number: [id number] Auth/Referral Contact Name-Primary : [place] Historical Authorization Comments-Primary : No Authorization Comments Found Kym Kim, Senior Qc Technician - 10/12/2019 13:58 EST Electronically signed by Barbara [facility] Conversion Car Wash Manager Cerner at 12/17/2022 6:10 PM CDT documented in this encounter Plan of Treatment Not on file documented as of this encounter Visit Diagnoses Not on filedocumented in this encounter
--- OUTSIDE RECORDS SUMMARY | 2025-04-11 14:12 | XMS_ITS | Referral Summary ---
Author Organization [employer] ([place], [place], [place], [place]) Address [address] [place] [address] Care Team Providers Care Resident Athletic Trainer Name Role Phone Unavailable Primary Care Provider [...]
--- OUTSIDE RECORDS SUMMARY | 2025-04-11 14:12 | XMS_ITS | Encounter Summary ---
Author Organization [employer] ([place], [place], [place], [place]) Address [address] [place] [address] Care Team Providers Care Degreaser Name Role Phone Unavailable Primary Care Provider Unavailabl e Encounter Details Date Type Department Care Team (Late st Contact Info) Description 10/24/2019 Transcribed Document [facility] [place] Family Medicine [address] [place] [address] ProviderChip MD [address] [place] [address] Social History Tobacco Use Types [...] - Historical ProviderMD - 10/24/2019 1:05 PM JEWELRY FINISHER UM Authorization Entered On: 10/24/2019 13:05 EST Performed On: 10/24/2019 13:05 EST by CONSUELO JAMES RN Primary Insurance Authorization Authorization and Policy Numbers : Insurance 1 Health Plan: [facility] Policy Number: [id number] Authorization Number: Insurance Primary Name : [facility] Policy Number: [id number] Authorization Status-Primary : Denial - admission Auth/Referral [...] a denial letter with appeal info.[facility] ph# [phone] (SALLY KAUR, [employer] 10/12/2019 15:19) CONSUELO JAMES, ADDY - 10/24/2019 13:05 EST Electronically signed by Barbara [facility] Conversion Shop Director Cerner at 12/17/2022 6:34 PM CDT documented in this encounter Plan of Treatment Not on file documented as of this encounter Visit Diagnoses Not on filedocumented in this encounter
--- OUTSIDE RECORDS SUMMARY | 2025-04-11 14:12 | XMS_ITS | Encounter Summary ---
Author Organization [employer] ([place], [place], [place], [place]) Address [address] [place] [address] Care Team Providers Care Hand Router Operator Name Role Phone Unavailable Primary Care Provider Unavailabl e Encounter Details Date Type Department Care Team (Late st Contact Info) Description 10/11/2019 Transcribed Document [facility] [place] Family Medicine [address] [place] [address] ProviderChip MD [address] [place] [address] Social History Tobacco Use Types [...] - Historical ProviderMD - 10/11/2019 5:33 PM COMMERCIAL INSTRUCTOR SUPERVISOR DATE OF ADMISSION: 10/11/2019 PRIMARY CARE PHYSICIAN: [...] was abnormal. The patient was transferred to [facility] for infectious disease and pulmonary evaluation. The [...] was reviewed. Critical time spent, 55 minutes. /[id number] MD AYUSH Lantigua/MILLY / AYUSH / DONNA Electronically signed by Frieda Jimenez Conversion Scrap Metal Processing Worker Cerner at 12/17/2022 6:23 PM CDT documented in this encounter Plan of Treatment Not on file documented as of this encounter Visit Diagnoses Not on filedocumented in this encounter
[2025-04-11 15:08] LABS: Hematocrit 36.7 % (37.0-47.0); Hemoglobin 11.4 g/dL (12.2-16.2); Immature Granulocytes % 0.1 %; Mean Corpuscular HGB Conc 31.1 g/dL (31.8-35.4); Mean Corpuscular Hemoglobin 27.2 pg (27.0-31.2); Mean Corpuscular Volume 87.6 fl (81-99); Nucleated Red Blood Cells % 0 %; Platelet Count 281 K/mm3 (142-424); Red Blood Count 4.19 M/mm3 (4.20-5.40); Red Cell Distribution Width-SD 43.1 fL; White Blood Count 7.1 K/mm3 (4.8-10.8)
--- NOTE | 2025-04-11 15:15 | CA_ITS ---
APPROVED REPORT EXAM: Comprehensive 2D, Doppler, and color-flow Echocardiogram Street Cleaner: Yasmine Avila CRT Ht: 5 ft 2 in Wt: 229lbs BSA: 2.03 BP: 136/107 mmHg Indications: Chest Pain, Peripheral Edema, Hypertension/HDD, smoker 2D Dimensions LA Volume 28.70 mL LA Volume Index 13.90 mL/m2 (M/F) 16-34 M-Mode Dimensions RVDd 2.08 cm (0.9-2.6) LA Diam 4.02 cm (1.9-4.0) LVDd 3.89 cm (3.5-5.7) LVDs 2.88 cm (3.5-5.7) IVSd 1.14 cm (0.6-1.1) PWd 1.14 cm (0.6-1.1) EF (Teich) 51.60% FS 26.00% EDV (Teich) 65.50 mL TAPSE 1.45 (<1.7) ESV (Teich) 31.70 mL LV Diastology E Decel Time 207 (160-240 msec) E/A Ratio 1.02 MED A' 8.20 cm/s LAT A' 9.00 cm/s Aortic Valve AO Peak GR. 7.40 mmHg Mitral Valve MV A Velocity 78.0 (40-130 cm/s) E/A Ratio 1.02 Pulmonary Valve PV Peak Velocity 130.0 (50-150 cm/s) Tricuspid Valve TR P. Velocity 231.00 cm/s RAP Estimate 10.00 mmHg RVSP 31.30 mmHg Left Ventricle The left ventricle is normal size. Left ventricular systolic function is normal. The left ventricular ejection fraction is within the normal range. There is normal left ventricular wall thickness. There is normal LV segmental wall motion. The left ventricular diastolic function is normal. LVEF is 55% Right Ventricle The right ventricle is normal size. The right ventricular systolic function is normal. Atria The left atrium size is normal. The right atrium size is normal. There is no color Doppler evidence of interatrial shunt. Aortic Valve The aortic valve opens well. There is no hemodynamically significant aortic valvular stenosis. No aortic regurgitation is present. Mitral Valve The mitral valve is normal in structure. No evidence of mitral valve stenosis. Trace mitral regurgitation is present. Tricuspid Valve The tricuspid valve leaflets are thin and pliable. Mild tricuspid regurgitation. RVSP is 20-25 mmHg. Pulmonic Valve The pulmonary valve is grossly normal in structure. Trace pulmonic valve regurgitation is present. Great Vessels The aortic root is normal in size. IVC is normal in size and collapses >50% with inspiration. Pericardium There is no pericardial effusion. Other Information Study Quality: Adequate Conclusion Normal biventricular systolic function. Mild TR. Electronically signed by : Lucina Huddleston MD 04/12/2025 12:33:57
[2025-04-11 15:44] LABS: Free T4 (Free Thyroxine) 1.02 ng/dl (0.78-2.19)
[2025-04-11 16:22] LABS: Alanine Aminotransferase 17 U/L (12-78); Albumin Level 4.2 g/dl (3.5-5.0); Alkaline Phosphatase 91 U/L (38-126); Anion Gap 11.3 mEq/L (5-15); Aspartate Amino Transferase 29 U/L (14-36); Bilirubin,Direct 0.1 mg/dl (0.0-0.4); Bilirubin,Indirect 0.1 mg/dL (0.0-0.9); Bilirubin,Total 0.2 mg/dl (0.2-1.3); Bilirubin,Unconjugated 0.1 mg/dL (0.0-1.1); Blood Urea Nitrogen 10 mg/dl (7-17); Calcium 9.2 mg/dl (8.4-10.2); Carbon Dioxide 25 mmol/L (22.0-30.0); Chloride 107 mmol/L (98-107); Cholesterol 174 mg/dl (140-200); Creatinine,Serum 0.70 mg/dl (0.52-1.04); Estimated Glomerular Filt Rate 99 ml/min (>60); GFR (African American) 120 ML/MIN (>60); Glucose 109 mg/dl (74-100); HDL Cholesterol 34 mg/dl (40-60); Magnesium 2.0 mg/dl (1.6-2.3); Potassium 4.3 mmoL/L (3.5-5.1); Sodium 139 mmol/L (136-145); Total Protein,Serum 6.8 g/dl (6.3-8.2); Triglycerides 171 mg/dl (30-150)
[2025-04-11 16:47] LABS: Thyroid Stimulating Hormone 0.74 uIU/mL (0.465-4.68)
== END 2025-04-11 23:59 | disposition home or self-care (01) ==
LOC: RT 14:06
PROVIDERS: PCP Nurse Practitioner Family; Visit Provider Physician Assistant
DX: I07.1 Rheumatic tricuspid insufficiency (principal); I10 Essential (primary) hypertension; E78.5 Hyperlipidemia, unspecified; F17.200 Nicotine dependence, unspecified, uncomplicated; R94.31 Abnormal electrocardiogram [ECG] [EKG]; Z82.49 Family history of ischemic heart disease and other diseases of the circulatory system
CPT/HCPCS: 36415; 80048; 80061; 80076; 82565; 83735; 84439; 84443; 84520; 85025; 93306

== ENCOUNTER 2025-04-12 08:27 | Outpatient (CLI) | payer OTHER, SELFPAY ==
--- OUTSIDE RECORDS SUMMARY | 2025-04-12 08:30 | XMS_ITS | Encounter Summary ---
Author Organization [employer] ([place], [place], [place], [place]) Address [address] [place] [address] Care Team Providers Care Control Systems Drafting Officer Name Role Phone Unavailable Primary Care Provider Unavailabl e Encounter Details Date Type Department Care Team (Late st Contact Info) Description 10/12/2019 Transcribed Document [facility] [place] [facility] [place] [address] ProviderChip MD [address] [place] [address] Social History Tobacco Use Types [...] - Chip ProviderMD - 10/12/2019 2:13 AM POWER SHOVEL ENGINEER DATE OF DISCHARGE: 10/11/2019 The patient left [...] the lung. The patient was transferred to [facility] for Infectious Disease and Pulmonary consult. [...] Chart was reviewed. Time spent, 40 minutes. /[id number] MD AYUSH Lantigua/MILLY / AYUSH / DONNA /[id number] Electronically signed by Barbara [facility] Conversion Shoe Stitcher Odd Cerner at 12/17/2022 6:11 PM CDT documented in this encounter Plan of Treatment Not on file documented as of this encounter Visit Diagnoses Not on filedocumented in this encounter
--- OUTSIDE RECORDS SUMMARY | 2025-04-12 08:31 | XMS_ITS | Encounter Summary ---
Author Organization [employer] ([place], [place], [place], [place]) Address [address] [place] [address] Care Team Providers Care Regional Loss Prevention Manager Name Role Phone Unavailable Primary Care Provider Unavailabl e Encounter Details Date Type Department Care Team (Late st Contact Info) Description 10/11/2019 Transcribed Document [facility] [place] Family Medicine [address] [place] [address] ProviderChip MD [address] [place] [address] Social History Tobacco Use Types [...] - Historical Provider, - 10/11/2019 3:11 PM OPERATIONAL RISK ANALYST Admission History, Adult Entered On: 10/11/2019 17:00 [...] on Unit : Stretcher Legal Guardian : boiler room operator Legal Guardian : No Support Person/Patient Four H Agent : No Contact Password : 1111 Want Family/Rep/Phys Notified of Admit : No Emergency Contact #1 : Yuriy Lewis Emergency Contact #1 Emergency Contact #1 Relationship : Emergency Contact #2 : Yuriy Lewis Emergency Contact #2 Emergency Contact #2 Relationship : Primary Language : Slovenian Preferred Communication Mode : Verbal Communication Barrier [...] Scale Risk Level : 0-24 Low Risk Porter Fall Interventions : Adequate lighting, Assistive devices [...] Source : Stated Height Entry Format : [place] Height, Feet : 5 ft(Converted to: 152 [...] Body Mass Index : 25.4 kg/m2 (HI) [place] Body Weight : 50 kg Bay Lyons [...] Bay Lyons RN - 10/11/2019 19:12 EST [place] Suicide Severity Rating Scale (C-SSRS) CSSRS Past [...] Items : Other: Purse and cell phone material mixer Comfort Items Disposition : Bedside, Declines to [...]
--- OUTSIDE RECORDS SUMMARY | 2025-04-12 08:31 | XMS_ITS | Encounter Summary ---
Author Organization [employer] ([place], [place], [place], [place]) Address [address] [place] [address] Care Team Providers Care Aligning Inspector Name Role Phone Unavailable Primary Care Provider Unavailabl e Encounter Details Date Type Department Care Team (Late st Contact Info) Description 10/12/2019 Transcribed Document [facility] [place] Family Medicine [address] [place] [address] ProviderChip MD [address] [place] [address] Social History Tobacco Use Types [...] - Historical ProviderMD - 10/12/2019 3:19 PM MEDICAL INVESTIGATOR UM Authorization Entered On: 10/12/2019 15:20 EST Performed On: 10/12/2019 15:19 EST by SALLY KAUR, Astrophysics Teacher Primary Insurance Authorization Authorization and Policy Numbers : Insurance 1 Health Plan: [facility] Policy Number: [id number] Authorization Number: Insurance Primary Name : [facility] Policy Number: [id number] Authorization Status-Primary : Awaiting callback Auth/Referral Contact Name-Primary : [place] Authorized Service Begin Date-Primary : 10/11/2019 EST Authorization Comments-Primary : per call from [facility] with [facility]. Denied as not meeting INPT. Will also fax us a denial letter with appeal info. [facility]# [phone] Historical Authorization Comments-Primary : No Authorization Comments Found SALLY KAUR, Astrophysics Teacher - 10/12/2019 15:19 EST Electronically signed by Interface, [facility] Conversion Avionics Installer Cerner at 12/17/2022 6:19 PM CDT documented in this encounter Plan of Treatment Not on file documented as of this encounter Visit Diagnoses Not on filedocumented in this encounter
--- OUTSIDE RECORDS SUMMARY | 2025-04-12 08:31 | XMS_ITS | Encounter Summary ---
Author Organization [employer] ([place], [place], [place], [place]) Address [address] [place] [address] Care Team Providers Care Medical Investigator Name Role Phone Unavailable Primary Care Provider Unavailabl e Encounter Details Date Type Department Care Team (Late st Contact Info) Description 10/24/2019 Transcribed Document [facility] [place] [address] ProviderChip MD [address] [place] [address] Social History Tobacco Use Types [...] - Historical ProviderMD - 10/24/2019 11:34 AM SUPERVISOR BIT AND SHANK DEPARTMENT UM Authorization Entered On: 10/24/2019 11:34 EST Performed On: 10/24/2019 11:34 EST by CONSUELO JAMES RN Primary Insurance Authorization Authorization and Policy Numbers : Insurance 1 Health Plan: [facility] Policy Number: [id number] Authorization Number: Insurance Primary Name : [facility] Policy Number: [id number] Authorization Status-Primary : Denial - admission Auth/Referral [...] fax us a denial letter with appeal info.[facility]# [phone] (SALLY KAUR, Die Sinker 10/12/2019 15:19) CONSUELO JAMES RN - 10/24/2019 11:34 EST Electronically signed by Barbara, [facility] Conversion Drill Runner Helper Cerner at 12/17/2022 6:25 PM CDT documented in this encounter Plan of Treatment Not on file documented as of this encounter Visit Diagnoses Not on filedocumented in this encounter
--- OUTSIDE RECORDS SUMMARY | 2025-04-12 08:31 | XMS_ITS | Encounter Summary ---
Author Organization [employer] ([place], [place], [place], [place]) Address [address] [place] [address] Care Team Providers Care Preschool Assistant Principal Name Role Phone Unavailable Primary Care Provider Unavailabl e Encounter Details Date Type Department Care Team (Late st Contact Info) Description 10/12/2019 Transcribed Document [facility] [place] [address] [place] [address] ProviderChip MD [address] [place] [address] Social History Tobacco Use Types [...] - Historical ProviderMD - 10/12/2019 8:56 AM WOODWIND INSTRUMENT REPAIRER UM Authorization Entered On: 10/12/2019 8:56 EST Performed On: 10/12/2019 8:56 EST by PAPO EDWARDS Rn-Utilization Review Primary Insurance Authorization Authorization and Policy Numbers : Insurance 1 Health Plan: [facility] Policy Number: [id number] Authorization Number: Insurance Primary Name : [facility] Policy Number: [id number] Historical Authorization Comments-Primary : No Authorization Comments Found PAPO EDWARDS Rn-Utilization Review - 10/12/2019 8:56 EST documented in this encounter Plan of Treatment Not on file documented as of this encounter Visit Diagnoses Not on filedocumented in this encounter
--- OUTSIDE RECORDS SUMMARY | 2025-04-12 08:31 | XMS_ITS | Encounter Summary ---
Author Organization [employer] ([place], [place], [place], [place]) Address [address] [place] [address] Care Team Providers Care Hrbp Name Role Phone Unavailable Primary Care Provider Unavailabl e Encounter Details Date Type Department Care Team (Late st Contact Info) Description 10/18/2019 Transcribed Document [facility] [place] [address] [place] [address] ProviderChip MD [address] [place] [address] Social History Tobacco Use Types [...] - Historical ProviderMD - 10/18/2019 2:01 PM FINANCIAL RETIREMENT PLAN SPECIALIST UM Authorization Entered On: 10/18/2019 14:01 EST Performed On: 10/18/2019 14:01 EST by Kym Kim, Manager Procurement Primary Insurance Authorization Authorization and Policy Numbers : Insurance 1 Health Plan: [facility] Policy Number: [id number] Authorization Number: Insurance Primary Name : [facility] Policy Number: [id number] Authorization Status-Primary : Denial - admission Auth/Referral Contact Name-Primary : [place] + Authorized Service Begin Date-Primary : 10/11/2019 EST Historical Authorization Comments-Primary : Comment 1: Emailed denial letter, p2p form, and MCG to RD/[facility] (CONSUELO JAMES RN 10/13/2019 10:03) Comment 2: per call from [facility] with [facility]. Denied as not meeting INPT. Will also fax us a denial letter with appeal info.[facility]# [phone] (SALLY KAUR, Rn Digestive 10/12/2019 15:19) Kym Kim, Manager Procurement - 10/18/2019 14:01 EST documented in this encounter Plan of Treatment Not on file documented as of this encounter Visit Diagnoses Not on filedocumented in this encounter
--- OUTSIDE RECORDS SUMMARY | 2025-04-12 08:31 | XMS_ITS | Encounter Summary ---
Author Organization [employer] ([place], [place], [place], [place]) Address [address] [place] [address] Care Team Providers Care Cable Dispatcher Name Role Phone Unavailable Primary Care Provider Unavailabl e Encounter Details Date Type Department Care Team (Late st Contact Info) Description 10/13/2019 Transcribed Document [facility] [place] Family Medicine [address] [place] [address] ProviderChip MD [address] [place] [address] Social History Tobacco Use Types [...] - Historical ProviderMD - 10/13/2019 10:03 AM EVENT SET UP SPECIALIST UM Authorization Entered On: 10/13/2019 10:03 EST Performed On: 10/13/2019 10:03 EST by CONSUELO JAMES RN Primary Insurance Authorization Authorization and Policy Numbers : Insurance 1 Health Plan: [facility] Policy Number: [id number] Authorization Number: Insurance Primary Name : [facility] Policy Number: [id number] Authorization Status-Primary : Denial - admission Auth/Referral Contact Name-Primary : [place] Authorized Service Begin Date-Primary : 10/11/2019 EST Authorization Comments-Primary : Emailed denial letter, p2p form, and MCG to RD/[facility] Historical Authorization Comments-Primary : Comment 1: per call from [facility] with [facility]. Denied as not meeting INPT. Will also fax us a denial letter with appeal info.[facility] ph# [phone] (SALLY KAUR, Teletypesetter Monitor 10/12/2019 15:19) CONSUELO JAMES RN - 10/13/2019 10:03 EST documented in this encounter Plan of Treatment Not on file documented as of this encounter Visit Diagnoses Not on filedocumented in this encounter
--- OUTSIDE RECORDS SUMMARY | 2025-04-12 08:31 | XMS_ITS | Encounter Summary ---
Author Organization [employer] ([place], [place], [place], [place]) Address [address] [place] [address] Care Team Providers Care Safety Engineer Pressure Vessels Name Role Phone Unavailable Primary Care Provider Unavailabl e Encounter Details Date Type Department Care Team (Late st Contact Info) Description 10/11/2019 Transcribed Document [facility] [place] Family Medicine [address] [place] [address] ProviderChip MD [address] [place] [address] Social History Tobacco Use Types [...] - Historical ProviderMD - 10/11/2019 7:03 AM FOREST ECOLOGIST Consult Phone Call Documentation Entered On: 10/11/2019 16:54 EST Performed On: 10/11/2019 7:03 EST by Urszula Zayas, [facility] Unit Coord Phone Call for Consults Consult Phone Call/Page Attempt : First call Consult Reason : Lung Cavity? Provider Team Notified Name : Pulmonary medicine Consult, Additional Information : Call was answered and hung up upon Urszula Zayas, [facility] Unit Coord - 10/11/2019 16:54 EST documented in this encounter Plan of Treatment Not on file documented as of this encounter Visit Diagnoses Not on filedocumented in this encounter
--- OUTSIDE RECORDS SUMMARY | 2025-04-12 08:31 | XMS_ITS | Encounter Summary ---
Author Organization [employer] ([place], [place], [place], [place]) Address [address] [place] [address] Care Team Providers Care Effervescent Salts Compounder Name Role Phone Unavailable Primary Care Provider Unavailabl e Encounter Details Date Type Department Care Team (Late st Contact Info) Description 10/24/2019 Transcribed Document [facility] [place] [address] [place] [address] ProviderChip MD [address] [place] [address] Social History Tobacco Use Types [...] - Historical ProviderMD - 10/24/2019 1:05 PM PRICER BAGGER UM Authorization Entered On: 10/24/2019 13:05 EST Performed On: 10/24/2019 13:05 EST by CONSUELO JAMES RN Primary Insurance Authorization Authorization and Policy Numbers : Insurance 1 Health Plan: [facility] Policy Number: [id number] Authorization Number: Insurance Primary Name : [facility] Policy Number: [id number] Authorization Status-Primary : Denial - admission Auth/Referral [...] a denial letter with appeal info.P2P ph# [phone] (SALLY KAUR, Superintendent Drivers 10/12/2019 15:19) CONSUELO JAMES, ADDY - 10/24/2019 13:05 EST Electronically signed by Barbara [facility] Conversion Lead Architect Cerner at 12/17/2022 6:34 PM CDT documented in this encounter Plan of Treatment Not on file documented as of this encounter Visit Diagnoses Not on filedocumented in this encounter
--- OUTSIDE RECORDS SUMMARY | 2025-04-12 08:31 | XMS_ITS | Encounter Summary ---
Author Organization [employer] ([place], [place], [place], [place]) Address [address] [place] [address] Care Team Providers Care Internet Developer Name Role Phone Unavailable Primary Care Provider Unavailabl e Encounter Details Date Type Department Care Team (Late st Contact Info) Description 10/12/2019 Transcribed Document [facility] [place] Family Medicine [address] [place] [address] ProviderChip MD [address] [place] [address] Social History Tobacco Use Types [...] - Historical ProviderMD - 10/12/2019 3:20 PM DRIVER WHEELCHAIR UM Authorization Entered On: 10/12/2019 15:21 EST Performed On: 10/12/2019 15:20 EST by SALLY KAUR, Medical Record Specialist Primary Insurance Authorization Authorization and Policy Numbers : Insurance 1 Health Plan: [facility] Policy Number: [id number] Authorization Number: Insurance Primary Name : [facility] Policy Number: [id number] Authorization Status-Primary : Awaiting callback Auth/Referral Contact Name-Primary : [place] Authorized Service Begin Date-Primary : 10/11/2019 EST Historical Authorization Comments-Primary : Comment 1: per call from [facility] with [facility]. Denied as not meeting INPT. Will also fax us a denial letter with appeal info.P # [phone] (SALLY KAUR, Medical Record Specialist 10/12/2019 15:19) SALLY KAUR, Medical Record Specialist - 10/12/2019 15:20 EST Electronically signed by Barbara, [facility] Conversion Chain Maker Hand Cerner at 12/17/2022 6:12 PM CDT documented in this encounter Plan of Treatment Not on file documented as of this encounter Visit Diagnoses Not on filedocumented in this encounter
--- OUTSIDE RECORDS SUMMARY | 2025-04-12 08:31 | XMS_ITS | Patient Health Record ---
Author Organization [facility] Address [address] [place] [address] Care Team Providers Care E Commerce Director Name Role Phone Rosa Enriquez Primary Care Provider Allergies Allergen (clinical drug ingredient) Drug/Non Drug Allergy documented on EMR Reaction Allergy Type Onset Date Status amoxicillin Amoxicillin Unknown Drug Allergy Act jalil Penicillin Unknown Drug Allergy Active Reason For Referral No Information Problems Problem Type SNOMED Code ICD Code Onset Dates Problem Status W/U Status Risk Notes Problem Alcohol dependence (43775044) Uncomplicated alcohol dependence (F10.20) Active confirmed Problem Opioid dependence (69042006) Uncomplicated opioid dependence (F11.20) Active confirmed Plan Of Treatment No Information Insurance Providers Payer Name Payer Address Payer Phone Subscriber Number Group Number Insured Name Patient Relationship to Insured Coverage Start Date Coverage End Date [facility] Medicaid [address] [address] [place] [address] [id number] Hellen Todd Self - patient is the insured 2 Medical (General) History Medical History History ICD Code hypertension anxiety depression Surgical History Surgery Date(Month/Year) Section kidney stone surgery Hospitalization History Reason Date(Month/Year) childbirth
--- OUTSIDE RECORDS SUMMARY | 2025-04-12 08:31 | XMS_ITS | Encounter Summary ---
Author Organization [employer] ([place], [place], [place], [place]) Address [address] [place] [address] Care Team Providers Care Dry House Worker Name Role Phone Unavailable Primary Care Provider Unavailabl e Encounter Details Date Type Department Care Team (Late st Contact Info) Description 10/12/2019 Transcribed Document [facility] [place] [address] [place] [address] ProviderChip MD [address] [place] [address] Social History Tobacco Use Types [...] - Historical ProviderMD - 10/12/2019 1:58 PM CENTRAL OFFICE EQUIPMENT ENGINEER UM Authorization Entered On: 10/12/2019 13:58 EST Performed On: 10/12/2019 13:58 EST by Kym Kim Accounting Assistant Primary Insurance Authorization Authorization and Policy Numbers : Insurance 1 Health Plan: [facility] Policy Number: [id number] Authorization Number: Insurance Primary Name : [facility] Policy Number: [id number] Auth/Referral Contact Name-Primary : [place] Historical Authorization Comments-Primary : No Authorization Comments Found Kym Kim, Accounting Assistant - 10/12/2019 13:58 EST Electronically signed by Barbara [facility] Conversion Drawing Supervisor Cerner at 12/17/2022 6:10 PM CDT documented in this encounter Plan of Treatment Not on file documented as of this encounter Visit Diagnoses Not on filedocumented in this encounter
--- OUTSIDE RECORDS SUMMARY | 2025-04-12 08:31 | XMS_ITS | Encounter Summary ---
Author Organization [employer] ([place], [place], [place], [place]) Address [address] [place] [address] Care Team Providers Care Cardiac Care Unit Nurse Name Role Phone Unavailable Primary Care Provider Unavailabl e Encounter Details Date Type Department Care Team (Late st Contact Info) Description 10/12/2019 Transcribed Document [facility] [place] [address] [place] [address] ProviderChip MD [address] [place] [address] Social History Tobacco Use Types [...] - Historical ProviderMD - 10/12/2019 2:00 PM 3RD MATE UM Authorization Entered On: 10/12/2019 14:00 EST Performed On: 10/12/2019 14:00 EST by PAPO EDWARDS Rn-Utilization Review Primary Insurance Authorization Authorization and Policy Numbers : Insurance 1 Health Plan: [facility] Policy Number: [id number] Authorization Number: Insurance Primary Name : [facility] Policy Number: [id number] Authorization Status-Primary : Awaiting callback Auth/Referral Contact Name-Primary : [place] Authorized Service Begin Date-Primary : 10/11/2019 EST Historical Authorization Comments-Primary : No Authorization Comments Found PAPO EDWARDS Rn-Utilization Review - 10/12/2019 14:00 EST Electronically signed by Barbara [facility] Conversion Tablet Making Machine Operator Cerner at 12/17/2022 6:29 PM CDT documented in this encounter Plan of Treatment Not on file documented as of this encounter Visit Diagnoses Not on filedocumented in this encounter
--- OUTSIDE RECORDS SUMMARY | 2025-04-12 08:31 | XMS_ITS | Encounter Summary ---
Author Organization [employer] ([place], [place], [place], [place]) Address [address] [place] [address] Care Team Providers Care Director Of Social Services Name Role Phone Unavailable Primary Care Provider Unavailabl e Encounter Details Date Type Department Care Team (Late st Contact Info) Description 10/11/2019 Transcribed Document [facility] [place] [address] [place] [address] ProviderChip MD [address] [place] [address] Social History Tobacco Use Types [...] - Historical ProviderMD - 10/11/2019 5:33 PM DIRECTOR VOICE DATE OF ADMISSION: 10/11/2019 PRIMARY CARE PHYSICIAN: [...] was abnormal. The patient was transferred to [facility] for infectious disease and [...] was reviewed. Critical time spent, 55 minutes. /[id number] MD AYUSH Lantigua/MILLY / AYUSH / DONNA documented in this encounter Plan of Treatment Not on file documented as of this encounter Visit Diagnoses Not on filedocumented in this encounter
--- OUTSIDE RECORDS SUMMARY | 2025-04-12 08:31 | XMS_ITS | Referral Summary ---
Author Organization [employer] ([place], [place], [place], [place]) Address [address] [place] [address] Care Team Providers Care Drug Inspector Name Role Phone Unavailable Primary Care [...]
--- OUTSIDE RECORDS SUMMARY | 2025-04-12 08:31 | XMS_ITS | Clinical Summary ---
Author Organization [employer] ([place], [place], [place], [place]) Address [address] [place] [address] Care Team Providers Care Manufacturing Technologist Name Role Phone Unavailable Primary Care Provider [...]
--- OUTSIDE RECORDS SUMMARY | 2025-04-12 08:31 | XMS_ITS | Encounter Summary ---
Author Organization [employer] ([place], [place], [place], [place]) Address [address] [place] [address] Care Team Providers Care Policy Service Coordinator Name Role Phone Unavailable Primary Care Provider Unavailabl e Encounter Details Date Type Department Care Team (Late st Contact Info) Description 10/11/2019 Transcribed Document [facility] [place] [address] [place] [address] ProviderChip MD [address] [place] [address] Social History Tobacco Use Types [...] - Historical ProviderMD - 10/11/2019 10:00 AM TRACKMAN Consult Phone Call Documentation Entered On: 10/11/2019 17:58 EST Performed On: 10/11/2019 10:00 EST by Urszula Zayas Batch Unloader-Health Unit Coord Phone Call for Consults Consult Phone Call/Page Attempt : Second call Consult Reason : PNA Consult, Additional Information : Dr. Pollard court operations clerk Urszula Zaysa, Batch Unloader-Health Unit Coord - 10/11/2019 17:58 EST documented in this encounter Plan of Treatment Not on file documented as of this encounter Visit Diagnoses Not on filedocumented in this encounter
[2025-04-12 08:40] VITALS: BMI 42.4
[2025-04-12 08:50] VITALS: BP 137/78; PULSE 74; RESP 17; TEMP 36.3; O2SAT 98
[2025-04-12 08:50] LABS: HCG Qualitative, Serum Negative (Negative)
[2025-04-12] MEDS: METOPROLOL TARTRATE 50MG TABLET PO (09:15)
[2025-04-12] MEDS: IVABRADINE HCL 7.5MG TABLET PO (09:15)
[2025-04-12 09:58] VITALS: BP 165/108; PULSE 63; RESP 16; O2SAT 99
[2025-04-12 10:01] VITALS: BP 148/92; PULSE 63; RESP 16; O2SAT 98
[2025-04-12 10:04] VITALS: BP 120/79; PULSE 56; RESP 16; O2SAT 96
[2025-04-12] MEDS: IOPAMIDOL-370 (76%);100ML BOTTLE 85 ML IV (10:10)
[2025-04-12] MEDS: 0.9 % SODIUM CHLORIDE 50 ML VIAL IV (10:11)
[2025-04-12] MEDS: SODIUM CHLORIDE 0.9% 10ML SYR (RAD ONLY) 10 ML IV (10:12)
[2025-04-12 10:13] VITALS: BP 143/84; PULSE 77; RESP 16; O2SAT 97
== END 2025-04-12 10:13 | disposition home or self-care (01) ==
PROVIDERS: PCP Nurse Practitioner Family; Visit Provider Physician Assistant
DX: I07.1 Rheumatic tricuspid insufficiency (principal); I10 Essential (primary) hypertension; R94.31 Abnormal electrocardiogram [ECG] [EKG]; F17.200 Nicotine dependence, unspecified, uncomplicated; Z82.49 Family history of ischemic heart disease and other diseases of the circulatory system
CPT/HCPCS: 75574; 84703; Q9967

== ENCOUNTER 2025-04-25 11:03 | Outpatient (CLI) | payer OTHER, SELFPAY ==
--- OUTSIDE RECORDS SUMMARY | 2025-04-25 11:18 | XMS_ITS | Encounter Summary ---
Author Organization [employer] ([place], [place], [place], [place]) Address [address] [place] [address] Care Team Providers Care Blow Molding Machine Tender Name Role Phone Unavailable Primary Care Provider Unavailabl e Encounter Details Date Type Department Care Team (Late st Contact Info) Description 10/12/2019 Transcribed Document [facility] [place] [address] [place] [address] ProviderChip MD [address] [place] [address] Social History Tobacco Use Types [...] - Historical ProviderMD - 10/12/2019 3:20 PM DIRECTOR BIOLOGY UM Authorization Entered On: 10/12/2019 15:21 EST Performed On: 10/12/2019 15:20 EST by SALLY KAUR, Alumni Secretary Primary Insurance Authorization Authorization and Policy Numbers : Insurance 1 Health Plan: [facility] Policy Number: [id number] Authorization Number: Insurance Primary Name : [facility] Policy Number: [id number] Authorization Status-Primary : Awaiting callback Auth/Referral Contact Name-Primary : [place] Authorized Service Begin Date-Primary : 10/11/2019 EST Historical Authorization Comments-Primary : Comment 1: per call from [facility] with [facility]. Denied as not meeting INPT. Will also fax us a denial letter with appeal info.P # [phone] (SALLY KAUR, Alumni Secretary 10/12/2019 15:19) SALLY KAUR, Alumni Secretary - 10/12/2019 15:20 EST Electronically signed by Barbara, [facility] Conversion Print Traffic Manager Cerner at 12/17/2022 6:12 PM CDT documented in this encounter Plan of Treatment Not on file documented as of this encounter Visit Diagnoses Not on filedocumented in this encounter
--- OUTSIDE RECORDS SUMMARY | 2025-04-25 11:18 | XMS_ITS | Encounter Summary ---
Author Organization [employer] ([place], [place], [place], [place]) Address [address] [place] [address] Care Team Providers Care Postbed Stitcher Name Role Phone Unavailable Primary Care Provider Unavailabl e Encounter Details Date Type Department Care Team (Late st Contact Info) Description 10/12/2019 Transcribed Document [facility] [place] Family Medicine [address] [place] [address] ProviderChip MD [address] [place] [address] Social History Tobacco Use Types [...] - Historical ProviderMD - 10/12/2019 8:56 AM ANIMAL TECH UM Authorization Entered On: 10/12/2019 8:56 EST Performed On: 10/12/2019 8:56 EST by PAPO EDWARDS Rn-Utilization Review Primary Insurance Authorization Authorization and Policy Numbers : Insurance 1 Health Plan: [facility] Policy Number: [id number] Authorization Number: Insurance Primary Name : [facility] Policy Number: [id number] Historical Authorization Comments-Primary : No Authorization Comments Found PAPO EDWARDS Rn-Utilization Review - 10/12/2019 8:56 EST documented in this encounter Plan of Treatment Not on file documented as of this encounter Visit Diagnoses Not on filedocumented in this encounter
--- OUTSIDE RECORDS SUMMARY | 2025-04-25 11:18 | XMS_ITS | Encounter Summary ---
Author Organization [employer] ([place], [place], [place], [place]) Address [address] [place] [address] Care Team Providers Care Nutritional Services Director Name Role Phone Unavailable Primary Care Provider Unavailabl e Encounter Details Date Type Department Care Team (Late st Contact Info) Description 10/11/2019 Transcribed Document [facility] [place] [address] [place] [address] ProviderChip MD [address] [place] [address] Social History Tobacco Use Types [...] - Historical ProviderMD - 10/11/2019 10:00 AM HAT LINER Consult Phone Call Documentation Entered On: 10/11/2019 17:58 EST Performed On: 10/11/2019 10:00 EST by Urszula Zayas Roll Edge Machine Operator-Health Unit Coord Phone Call for Consults Consult Phone Call/Page Attempt : Second call Consult Reason : PNA Consult, Additional Information : Dr. Pollard mine exploration engineer Urszula Zayas, Roll Edge Machine Operator-Health Unit Coord - 10/11/2019 17:58 EST Electronically signed by Frieda Jimenez Conversion Facility Maintenance Supervisor Cermarc at 12/17/2022 6:21 PM CDT documented in this encounter Plan of Treatment Not on file documented as of this encounter Visit Diagnoses Not on filedocumented in this encounter
--- OUTSIDE RECORDS SUMMARY | 2025-04-25 11:18 | XMS_ITS | Encounter Summary ---
Author Organization [employer] ([place], [place], [place], [place]) Address [address] [place] [address] Care Team Providers Care Industrial Arts Public [employer] Teacher Name Role Phone Unavailable Primary Care Provider Unavailabl e Encounter Details Date Type Department Care Team (Late st Contact Info) Description 10/13/2019 Transcribed Document [facility] [place] [address] [place] [address] ProviderChip MD [address] [place] [address] Social History Tobacco Use Types [...] - Historical ProviderMD - 10/13/2019 10:03 AM PSYCHIATRIC RN UM Authorization Entered On: 10/13/2019 10:03 EST Performed On: 10/13/2019 10:03 EST by CONSUELO JAMES RN Primary Insurance Authorization Authorization and Policy Numbers : Insurance 1 Health Plan: [facility] Policy Number: [id number] Authorization Number: Insurance Primary Name : [facility] Policy Number: [id number] Authorization Status-Primary : Denial - admission Auth/Referral Contact Name-Primary : [place] Authorized Service Begin Date-Primary : 10/11/2019 EST Authorization Comments-Primary : Emailed denial letter, p2p form, and MCG to RD/[facility] Historical Authorization Comments-Primary : Comment 1: per call from [facility] with [facility]. Denied as not meeting INPT. Will also fax us a denial letter with appeal info.P2P ph# [phone] (SALLY KAUR, Contribution Solicitor 10/12/2019 15:19) CONSUELO JAMES RN - 10/13/2019 10:03 EST documented in this encounter Plan of Treatment Not on file documented as of this encounter Visit Diagnoses Not on filedocumented in this encounter
--- OUTSIDE RECORDS SUMMARY | 2025-04-25 11:18 | XMS_ITS | Referral Summary ---
Author Organization [employer] ([place], [place], [place]) Address [address] [place] [address] Care Team Providers Care Mission Planner Name Role Phone Unavailable Primary Care [...]
--- OUTSIDE RECORDS SUMMARY | 2025-04-25 11:18 | XMS_ITS | Encounter Summary ---
Author Organization [employer] ([place], [place], [place], [place]) Address [address] [place] [address] Care Team Providers Care Nut Grinder Name Role Phone Unavailable Primary Care Provider Unavailabl e Encounter Details Date Type Department Care Team (Late st Contact Info) Description 10/12/2019 Transcribed Document [facility] [place] Family Medicine [facility] [place] [address] ProviderChip MD [address] [place] [address] Social History Tobacco Use Types [...] - Chip ProviderMD - 10/12/2019 2:13 AM EXHAUST AND MUFFLER FITTER DATE OF DISCHARGE: 10/11/2019 The patient left [...] the lung. The patient was transferred to [facility] for Infectious Disease and Pulmonary consult. [...] Chart was reviewed. Time spent, 40 minutes. /[id number] MD AYUSH Lantigua/MILLY / AYUSH / DONNA /[id number] Electronically signed by Barbara [facility] Conversion Hr Generalist Cerner at 12/17/2022 6:11 PM CDT documented in this encounter Plan of Treatment Not on file documented as of this encounter Visit Diagnoses Not on filedocumented in this encounter
--- OUTSIDE RECORDS SUMMARY | 2025-04-25 11:18 | XMS_ITS | Encounter Summary ---
Author Organization [employer] ([place], [place], [place], [place]) Address [address] [place] [address] Care Team Providers Care Body Engineer Name Role Phone Unavailable Primary Care Provider Unavailabl e Encounter Details Date Type Department Care Team (Late st Contact Info) Description 10/11/2019 Transcribed Document [facility] [place] [address] [place] [address] ProviderChip MD [address] [place] [address] Social History Tobacco Use Types [...] - Historical ProviderMD - 10/11/2019 5:33 PM DISSOLVER OPERATOR DATE OF ADMISSION: 10/11/2019 PRIMARY CARE PHYSICIAN: [...] was abnormal. The patient was transferred to [facility] for infectious disease and pulmonary evaluation. The [...] was reviewed. Critical time spent, 55 minutes. /[id number] MD AYUSH Lantigua/MILLY / AYUSH / DONNA documented in this encounter Plan of Treatment Not on file documented as of this encounter Visit Diagnoses Not on filedocumented in this encounter
--- OUTSIDE RECORDS SUMMARY | 2025-04-25 11:18 | XMS_ITS | Encounter Summary ---
Author Organization [employer] ([place], [place], [place], [place]) Address [address] [place] [address] Care Team Providers Care X Ray Technician Name Role Phone Unavailable Primary Care Provider Unavailabl e Encounter Details Date Type Department Care Team (Late st Contact Info) Description 10/11/2019 Transcribed Document [facility] [place] [address] [place] [address] ProviderChip MD [address] [place] [address] Social History Tobacco Use Types [...] - Historical Provider, - 10/11/2019 3:11 PM CARBON CAPTURE POWER PLANT ENGINEER Admission History, Adult Entered On: 10/11/2019 17:00 [...] on Unit : Stretcher Legal Guardian : field contractor Legal Guardian : No Support Person/Patient Supervisor [place] : No Contact Password : [id number] Want Family/Rep/Phys Notified of Admit : No Emergency Contact #1 : Yuriy Lewis Emergency Contact #1 Emergency Contact #1 Relationship : Emergency Contact #2 : Yuriy Lewis Emergency Contact #2 Emergency Contact #2 Relationship : Primary Language : Citizen Of [place] Preferred Communication Mode : Verbal Communication Barrier [...] Scale Risk Level : 0-24 Low Risk [place] Fall Interventions : Adequate lighting, Assistive devices [...] Source : Stated Height Entry Format : [place] Height, Feet : 5 ft(Converted to: 152 [...] Body Mass Index : 25.4 kg/m2 ([place]) [place] Body Weight : 50 kg Bay Lyons [...] Bay Lyons RN - 10/11/2019 19:12 EST [place] Suicide Severity Rating Scale (C-SSRS) CSSRS Past [...] Items : Other: Purse and cell phone certified medical asst Comfort Items Disposition : Bedside, Declines to [...]
--- OUTSIDE RECORDS SUMMARY | 2025-04-25 11:18 | XMS_ITS | Encounter Summary ---
Author Organization [employer] ([place], [place], [place], [place]) Address [address] [place] [address] Care Team Providers Care Accordion Repairer Name Role Phone Unavailable Primary Care Provider Unavailabl e Encounter Details Date Type Department Care Team (Late st Contact Info) Description 10/12/2019 Transcribed Document [facility] [place] [address] [place] [address] ProviderChip MD [address] [place] [address] Social History Tobacco Use Types [...] - Historical ProviderMD - 10/12/2019 2:00 PM DOORMAKER UM Authorization Entered On: 10/12/2019 14:00 EST Performed On: 10/12/2019 14:00 EST by PAPO EDWARDS Rn-Utilization Review Primary Insurance Authorization Authorization and Policy Numbers : Insurance 1 Health Plan: [facility] Policy Number: [id number] Authorization Number: Insurance Primary Name : [facility] Policy Number: [id number] Authorization Status-Primary : Awaiting callback Auth/Referral Contact Name-Primary : [place] Authorized Service Begin Date-Primary : 10/11/2019 EST Historical Authorization Comments-Primary : No Authorization Comments Found PAPO EDWARDS Rn-Utilization Review - 10/12/2019 14:00 EST Electronically signed by Barbara [facility] Conversion Site Safety Representative Cerner at 12/17/2022 6:29 PM CDT documented in this encounter Plan of Treatment Not on file documented as of this encounter Visit Diagnoses Not on filedocumented in this encounter
--- OUTSIDE RECORDS SUMMARY | 2025-04-25 11:18 | XMS_ITS | Encounter Summary ---
Author Organization [employer] ([place], [place], [place], [place]) Address [address] [place] [address] Care Team Providers Care Metrology Technician Name Role Phone Unavailable Primary Care Provider Unavailabl e Encounter Details Date Type Department Care Team (Late st Contact Info) Description 10/24/2019 Transcribed Document [facility] [place] [address] [place] [address] ProviderChip MD [address] [place] [address] Social History Tobacco Use Types [...] - Historical ProviderMD - 10/24/2019 1:05 PM NEWSPAPER VENDOR UM Authorization Entered On: 10/24/2019 13:05 EST Performed On: 10/24/2019 13:05 EST by CONSUELO JAMES RN Primary Insurance Authorization Authorization and Policy Numbers : Insurance 1 Health Plan: [facility] Policy Number: [id number] Authorization Number: Insurance Primary Name : [facility] Policy Number: [id number] Authorization Status-Primary : Denial - admission Auth/Referral [...] a denial letter with appeal info.P2P ph# [phone] (SALLY KAUR, Stamping Machine Operator 10/12/2019 15:19) CONSUELO JAMES, ADDY - 10/24/2019 13:05 EST Electronically signed by Barbara [facility] Conversion Material Stress Tester Cerner at 12/17/2022 6:34 PM CDT documented in this encounter Plan of Treatment Not on file documented as of this encounter Visit Diagnoses Not on filedocumented in this encounter
--- OUTSIDE RECORDS SUMMARY | 2025-04-25 11:18 | XMS_ITS | Encounter Summary ---
Author Organization [employer] ([place], [place], [place], [place]) Address [address] [place] [address] Care Team Providers Care Senior Sales Compensation Analyst Name Role Phone Unavailable Primary Care Provider Unavailabl e Encounter Details Date Type Department Care Team (Late st Contact Info) Description 10/18/2019 Transcribed Document [facility] [place] [address] [place] [address] ProviderChip MD [address] [place] [address] Social History Tobacco Use Types [...] - Historical ProviderMD - 10/18/2019 2:01 PM JOB COACHING UM Authorization Entered On: 10/18/2019 14:01 EST Performed On: 10/18/2019 14:01 EST by Kym Kim, Stamping Die Maker Primary Insurance Authorization Authorization and Policy Numbers : Insurance 1 Health Plan: [facility] Policy Number: [id number] Authorization Number: Insurance Primary Name : [facility] Policy Number: [id number] Authorization Status-Primary : Denial - admission Auth/Referral Contact Name-Primary : [place] + Authorized Service Begin Date-Primary : 10/11/2019 EST Historical Authorization Comments-Primary : Comment 1: Emailed denial letter, p2p form, and MCG to RD/[facility] (CONSUELO JAMES RN 10/13/2019 10:03) Comment 2: per call from [facility] with [facility]. Denied as not meeting INPT. Will also fax us a denial letter with appeal info.[facility]# [phone] (SALLY KAUR, Curing Oven Tender 10/12/2019 15:19) Kym Kim, Stamping Die Maker - 10/18/2019 14:01 EST Electronically signed by Barbara [facility] Conversion Vice President Of Engineering Cerner at 12/17/2022 6:23 PM CDT documented in this encounter Plan of Treatment Not on file documented as of this encounter Visit Diagnoses Not on filedocumented in this encounter
--- OUTSIDE RECORDS SUMMARY | 2025-04-25 11:18 | XMS_ITS | Encounter Summary ---
Author Organization [employer] ([place], [place], [place], [place]) Address [address] [place] [address] Care Team Providers Care Material Cutter Name Role Phone Unavailable Primary Care Provider Unavailabl e Encounter Details Date Type Department Care Team (Late st Contact Info) Description 10/11/2019 Transcribed Document [facility] [place] [address] [place] [address] ProviderChip MD [address] [place] [address] Social History Tobacco Use Types [...] - Historical ProviderMD - 10/11/2019 7:03 AM SUPERVISOR MACHINE SETTER Consult Phone Call Documentation Entered On: 10/11/2019 16:54 EST Performed On: 10/11/2019 7:03 EST by Urszula Zayas, [facility] Unit Coord Phone Call for Consults Consult Phone Call/Page Attempt : First call Consult Reason : Lung Cavity? Provider Team Notified Name : Pulmonary medicine Consult, Additional Information : Call was answered and hung up upon Urszula Zayas, [facility] Unit Coord - 10/11/2019 16:54 EST documented in this encounter Plan of Treatment Not on file documented as of this encounter Visit Diagnoses Not on filedocumented in this encounter
--- OUTSIDE RECORDS SUMMARY | 2025-04-25 11:18 | XMS_ITS | Encounter Summary ---
Author Organization [employer] ([place], [place], [place], [place]) Address [address] [place] [address] Care Team Providers Care Cotton Baler Name Role Phone Unavailable Primary Care Provider Unavailabl e Encounter Details Date Type Department Care Team (Late st Contact Info) Description 10/12/2019 Transcribed Document [facility] [place] [address] [place] [address] ProviderChip MD [address] [place] [address] Social History Tobacco Use Types [...] - Historical ProviderMD - 10/12/2019 1:58 PM FLAG SIGNALER UM Authorization Entered On: 10/12/2019 13:58 EST Performed On: 10/12/2019 13:58 EST by Kym Kim Nuclear Design Engineer Primary Insurance Authorization Authorization and Policy Numbers : Insurance 1 Health Plan: [facility] Policy Number: [id number] Authorization Number: Insurance Primary Name : [facility] Policy Number: [id number] Auth/Referral Contact Name-Primary : [place] Historical Authorization Comments-Primary : No Authorization Comments Found Kym Kim, Nuclear Design Engineer - 10/12/2019 13:58 EST Electronically signed by Barbara [facility] Conversion Stave Block Splitter Cerner at 12/17/2022 6:10 PM CDT documented in this encounter Plan of Treatment Not on file documented as of this encounter Visit Diagnoses Not on filedocumented in this encounter
--- OUTSIDE RECORDS SUMMARY | 2025-04-25 11:18 | XMS_ITS | Encounter Summary ---
Author Organization [employer] ([place], [place], [place], [place]) Address [address] [place] [address] Care Team Providers Care Banking Manager Name Role Phone Unavailable Primary Care Provider Unavailabl e Encounter Details Date Type Department Care Team (Late st Contact Info) Description 10/24/2019 Transcribed Document [facility] [place] [facility] [place] [address] ProviderChip MD [facility] [place] [address] Social History Tobacco Use Types [...] - Historical ProviderMD - 10/24/2019 11:34 AM DIRECTOR OF ACADEMIC UM Authorization Entered On: 10/24/2019 11:34 EST Performed On: 10/24/2019 11:34 EST by CONSUELO JAMES RN Primary Insurance Authorization Authorization and Policy Numbers : Insurance 1 Health Plan: [facility] Policy Number: [id number] Authorization Number: Insurance Primary Name : [facility] Policy Number: [id number] Authorization Status-Primary : Denial - admission Auth/Referral [...] fax us a denial letter with appeal info.[facility]# [phone] (SALLY KAUR, Replanting Machine Operator 10/12/2019 15:19) CONSUELO JAMES RN - 10/24/2019 11:34 EST Electronically signed by Barbara, [facility] Conversion Java Developer Consultant Cerner at 12/17/2022 6:25 PM CDT documented in this encounter Plan of Treatment Not on file documented as of this encounter Visit Diagnoses Not on filedocumented in this encounter
--- OUTSIDE RECORDS SUMMARY | 2025-04-25 11:18 | XMS_ITS | Clinical Summary ---
Author Organization [employer] ([place], [place], [place], [place]) Address [address] [place] [address] Care Team Providers Care Golf Stud Riveter Name Role Phone Unavailable Primary Care Provider [...]
--- OUTSIDE RECORDS SUMMARY | 2025-04-25 11:18 | XMS_ITS | Encounter Summary ---
Author Organization [employer] ([place], [place], [place], [place]) Address [address] [place] [address] Care Team Providers Care Water Safety Instructor Name Role Phone Unavailable Primary Care Provider Unavailabl e Encounter Details Date Type Department Care Team (Late st Contact Info) Description 10/12/2019 Transcribed Document [facility] [place] Family Medicine [address] [place] [address] ProviderChip MD [address] [place] [address] Social History Tobacco Use Types [...] - Historical ProviderMD - 10/12/2019 3:19 PM SDET UM Authorization Entered On: 10/12/2019 15:20 EST Performed On: 10/12/2019 15:19 EST by SALLY KAUR, Wire Web Worker Primary Insurance Authorization Authorization and Policy Numbers : Insurance 1 Health Plan: [facility] Policy Number: [id number] Authorization Number: Insurance Primary Name : [facility] Policy Number: [id number] Authorization Status-Primary : Awaiting callback Auth/Referral Contact Name-Primary : [place] Authorized Service Begin Date-Primary : 10/11/2019 EST Authorization Comments-Primary : per call from [facility] with [facility]. Denied as not meeting INPT. Will also fax us a denial letter with appeal info. [facility]# [phone] Historical Authorization Comments-Primary : No Authorization Comments Found SALLY KAUR, Wire Web Worker - 10/12/2019 15:19 EST Electronically signed by Interface, [facility] Conversion Coiler Operator Cerner at 12/17/2022 6:19 PM CDT documented in this encounter Plan of Treatment Not on file documented as of this encounter Visit Diagnoses Not on filedocumented in this encounter
[2025-04-28 12:17] LABS: Candida Antibodies IgA Negative (Negative); Candida Antibodies IgG Negative (Negative); Candida Antibodies IgM Negative (Negative)
== END 2025-04-25 23:59 | disposition home or self-care (01) ==
LOC: LAB 11:04
PROVIDERS: PCP Nurse Practitioner Family; Visit Provider Nurse Practitioner Family
DX: B37.9 Candidiasis, unspecified (principal)
CPT/HCPCS: 36415; 86628

== ENCOUNTER 2025-05-17 16:08 | Outpatient (CLI) | payer OTHER, SELFPAY ==
[2025-05-17 17:42] LABS: Alanine Aminotransferase 20 U/L (12-78); Albumin Level 4.1 g/dl (3.5-5.0); Albumin/Globulin Ratio 1.5 (1.1-1.8); Alkaline Phosphatase 89 U/L (38-126); Anion Gap 9.3 mEq/L (5-15); Aspartate Amino Transferase 27 U/L (14-36); Bilirubin,Total 0.2 mg/dl (0.2-1.3); Blood Urea Nitrogen 11 mg/dl (7-17); Calcium 9.2 mg/dl (8.4-10.2); Carbon Dioxide 30 mmol/L (22.0-30.0); Chloride 104 mmol/L (98-107); Creatinine,Serum 0.70 mg/dl (0.52-1.04); Estimated Glomerular Filt Rate 98 ml/min (>60); GFR (African American) 119 ML/MIN (>60); Globulin 2.7 g/dL (1.3-3.2); Glucose 83 mg/dl (74-100); Potassium 4.3 mmoL/L (3.5-5.1); Sodium 139 mmol/L (136-145); Total Protein,Serum 6.8 g/dl (6.3-8.2)
[2025-05-17 18:14] LABS: Thyroid Stimulating Hormone 0.52 uIU/mL (0.465-4.68)
--- OUTSIDE RECORDS SUMMARY | 2025-05-18 10:50 | XMS_ITS | Encounter Summary ---
Author Organization [employer] ([place], [place], [place], [place]) Address [address] [place] [address] Care Team Providers Care Pc Maintenance Technician Name Role Phone Unavailable Primary Care Provider Unavailabl e Encounter Details Date Type Department Care Team (Late st Contact Info) Description 10/12/2019 Transcribed Document [facility] [place] Medicine [facility] [place] [address] ProviderChip MD [address] [place] [address] Social History Tobacco Use Types [...] - Chip ProviderMD - 10/12/2019 2:13 AM MATCH UP PERSON DATE OF DISCHARGE: 10/11/2019 The patient left [...] the lung. The patient was transferred to [facility] for [facility]ious Disease and Pulmonary [...] Chart was reviewed. Time spent, 40 minutes. /[id number] MD AYUSH Lantigua/MILLY / AYUSH / DONNA /[id number] Electronically signed by Barbara [facility] Conversion Time Clock Repairer Cerner at 12/17/2022 6:11 PM CDT documented in this encounter Plan of Treatment Not on file documented as of this encounter Visit Diagnoses Not on filedocumented in this encounter
--- OUTSIDE RECORDS SUMMARY | 2025-05-18 10:50 | XMS_ITS | Clinical Summary ---
Author Organization [employer] ([place], [place], [place], [place]) Address [address] [place] [address] Care Team Providers Care Roll Forming Machine Operator Name Role Phone Unavailable Primary [...]
--- OUTSIDE RECORDS SUMMARY | 2025-05-18 10:50 | XMS_ITS | Encounter Summary ---
Author Organization [employer] ([place], [place], [place], [place]) Address [address] [place] [address] Care Team Providers Care Yard Associate Name Role Phone Unavailable Primary Care Provider Unavailabl e Encounter Details Date Type Department Care Team (Late st Contact Info) Description 10/12/2019 Transcribed Document [facility] [place] [address] [place] [address] ProviderChip MD [address] [place] [address] Social History Tobacco Use Types [...] - Historical ProviderMD - 10/12/2019 3:20 PM PIT CLERK UM Authorization Entered On: 10/12/2019 15:21 EST Performed On: 10/12/2019 15:20 EST by SALLY KAUR, Tailor Fitter Primary Insurance Authorization Authorization and Policy Numbers : Insurance 1 Health Plan: [facility] Policy Number: [id number] Authorization Number: Insurance Primary Name : [facility] Policy Number: [id number] Authorization Status-Primary : Awaiting callback Auth/Referral Contact Name-Primary : [place] Authorized Service Begin Date-Primary : 10/11/2019 EST Historical Authorization Comments-Primary : Comment 1: per call from [facility] with [facility]. Denied as not meeting INPT. Will also fax us a denial letter with appeal info.P # [phone] (SALLY KAUR, Tailor Fitter 10/12/2019 15:19) SALLY KAUR, Tailor Fitter - 10/12/2019 15:20 EST Electronically signed by Barbara, [facility] Conversion Professional Driver Cerner at 12/17/2022 6:12 PM CDT documented in this encounter Plan of Treatment Not on file documented as of this encounter Visit Diagnoses Not on filedocumented in this encounter
--- OUTSIDE RECORDS SUMMARY | 2025-05-18 10:50 | XMS_ITS | Encounter Summary ---
Author Organization [employer] ([place], [place], [place], [place]) Address [address] [place] [address] Care Team Providers Care Applied Research Director Name Role Phone Unavailable Primary Care Provider Unavailabl e Encounter Details Date Type Department Care Team (Late st Contact Info) Description 10/12/2019 Transcribed Document [facility] [place] [address] [place] [address] ProviderChip MD [address] [place] [address] Social History Tobacco Use Types [...] - Historical ProviderMD - 10/12/2019 3:19 PM RADIO MECHANIC APPRENTICE UM Authorization Entered On: 10/12/2019 15:20 EST Performed On: 10/12/2019 15:19 EST by SALLY KAUR, Program Supervisor Primary Insurance Authorization Authorization and Policy Numbers : Insurance 1 Health Plan: [facility] Policy Number: [id number] Authorization Number: Insurance Primary Name : [facility] Policy Number: [id number] Authorization Status-Primary : Awaiting callback Auth/Referral Contact Name-Primary : [place] Authorized Service Begin Date-Primary : 10/11/2019 EST Authorization Comments-Primary : per call from [facility] with [facility]. Denied as not meeting INPT. Will also fax us a denial letter with appeal info. [facility]# [phone] Historical Authorization Comments-Primary : No Authorization Comments Found SALLY KAUR, Program Supervisor - 10/12/2019 15:19 EST Electronically signed by Interface, [facility] Conversion Insurance Legal Assistant Cerner at 12/17/2022 6:19 PM CDT documented in this encounter Plan of Treatment Not on file documented as of this encounter Visit Diagnoses Not on filedocumented in this encounter
--- OUTSIDE RECORDS SUMMARY | 2025-05-18 10:50 | XMS_ITS | Encounter Summary ---
Author Organization [employer] ([place], [place], [place], [place]) Address [address] [place] [address] Care Team Providers Care Investigative Shopper Name Role Phone Unavailable Primary Care Provider Unavailabl e Encounter Details Date Type Department Care Team (Late st Contact Info) Description 10/11/2019 Transcribed Document [facility] [place] Family Medicine [address] [place] [address] ProviderChip MD [address] [place] [address] Social History Tobacco Use [...] - Historical ProviderMD - 10/11/2019 7:03 AM CLOCK ASSEMBLER Consult Phone Call Documentation Entered On: 10/11/2019 16:54 EST Performed On: 10/11/2019 7:03 EST by Urszula Zayas, [facility] Unit Coord Phone Call for Consults Consult Phone Call/Page Attempt : First call Consult Reason : Lung Cavity? Provider Team Notified Name : Pulmonary medicine Consult, Additional Information : Call was answered and hung up upon Urszula Zayas, [facility] Unit Coord - 10/11/2019 16:54 EST documented in this encounter Plan of Treatment Not on file documented as of this encounter Visit Diagnoses Not on filedocumented in this encounter
--- OUTSIDE RECORDS SUMMARY | 2025-05-18 10:50 | XMS_ITS | Encounter Summary ---
Author Organization [employer] ([place], [place], [place], [place]) Address [address] [place] [address] Care Team Providers Care Sugar Cane Planting Equipment Operator Name Role Phone Unavailable Primary Care Provider Unavailabl e Encounter Details Date Type Department Care Team (Late st Contact Info) Description 10/11/2019 Transcribed Document [facility] [place] [address] [place] [address] ProviderChip MD [address] [place] [address] Social History Tobacco Use Types [...] - Historical Provider, - 10/11/2019 3:11 PM PACK PULLER Admission History, Adult Entered On: 10/11/2019 17:00 [...] on Unit : Stretcher Legal Guardian : brake assembler Legal Guardian : No Support Person/Patient Supervisor Melt House : No Contact Password : 1111 Want Family/Rep/Phys Notified of Admit : No Emergency Contact #1 : Yuriy Lewis Emergency Contact #1 Emergency Contact #1 Relationship : Emergency Contact #2 : Yuriy Lewis Emergency Contact #2 Emergency Contact #2 Relationship : Primary Language : Greek Preferred Communication Mode : Verbal Communication Barrier [...] Scale Risk Level : 0-24 Low Risk [place] Fall Interventions : Adequate lighting, Assistive devices [...] Source : Stated Height Entry Format : King Height, Feet : 5 ft(Converted to: 152 [...] Body Mass Index : 25.4 kg/m2 ([place]) [place] Body Weight : 50 kg Bay Lyons [...] Bay Lyons RN - 10/11/2019 19:12 EST Onward Suicide Severity Rating Scale (C-SSRS) CSSRS Past [...] Items : Other: Purse and cell phone painting technician Comfort Items Disposition : Bedside, Declines to [...]
--- OUTSIDE RECORDS SUMMARY | 2025-05-18 10:50 | XMS_ITS | Encounter Summary ---
Author Organization [employer] ([place], [place], [place], [place]) Address [address] [place] [address] Care Team Providers Care Web Production Designer Name Role Phone Unavailable Primary Care Provider Unavailabl e Encounter Details Date Type Department Care Team (Late st Contact Info) Description 10/12/2019 Transcribed Document [facility] [place] Family Medicine [address] [place] [address] ProviderChip MD [address] [place] [address] Social History Tobacco Use Types [...] - Historical ProviderMD - 10/12/2019 2:00 PM MESSAGE CLERK UM Authorization Entered On: 10/12/2019 14:00 EST Performed On: 10/12/2019 14:00 EST by PAPO EDWARDS Rn-Utilization Review Primary Insurance Authorization Authorization and Policy Numbers : Insurance 1 Health Plan: [facility] Policy Number: [id number] Authorization Number: Insurance Primary Name : [facility] Policy Number: [id number] Authorization Status-Primary : Awaiting callback Auth/Referral Contact Name-Primary : [place] Authorized Service Begin Date-Primary : 10/11/2019 EST Historical Authorization Comments-Primary : No Authorization Comments Found PAPO EDWARDS Rn-Utilization Review - 10/12/2019 14:00 EST Electronically signed by Barbara [facility] Conversion Fiber Technologist Cerner at 12/17/2022 6:29 PM CDT documented in this encounter Plan of Treatment Not on file documented as of this encounter Visit Diagnoses Not on filedocumented in this encounter
--- OUTSIDE RECORDS SUMMARY | 2025-05-18 10:50 | XMS_ITS | Encounter Summary ---
Author Organization [employer] ([place], [place], [place], [place]) Address [address] [place] [address] Care Team Providers Care Director Operating Name Role Phone Unavailable Primary Care Provider Unavailabl e Encounter Details Date Type Department Care Team (Late st Contact Info) Description 10/13/2019 Transcribed Document [facility] [place] Family [place] [address] [place] [address] ProviderChip MD [address] [place] [address] Social History Tobacco Use Types [...] - Historical ProviderMD - 10/13/2019 10:03 AM HAND COOPER HELPER UM Authorization Entered On: 10/13/2019 10:03 EST Performed On: 10/13/2019 10:03 EST by CONSUELO JAMES RN Primary Insurance Authorization Authorization and Policy Numbers : Insurance 1 Health Plan: [facility] Policy Number: [id number] Authorization Number: Insurance Primary Name : [facility] Policy Number: [id number] Authorization Status-Primary : Denial - admission Auth/Referral Contact Name-Primary : [place] Authorized Service Begin Date-Primary : 10/11/2019 EST Authorization Comments-Primary : Emailed denial letter, p2p form, and MCG to RD/[facility] Historical Authorization Comments-Primary : Comment 1: per call from [facility] with [facility]. Denied as not meeting INPT. Will also fax us a denial letter with appeal info.[facility] ph# [phone] (SALLY KAUR, Supervisor Photostat 10/12/2019 15:19) CONSUELO JAMES RN - 10/13/2019 10:03 EST documented in this encounter Plan of Treatment Not on file documented as of this encounter Visit Diagnoses Not on filedocumented in this encounter
--- OUTSIDE RECORDS SUMMARY | 2025-05-18 10:50 | XMS_ITS | Encounter Summary ---
Author Organization [employer] ([place], [place], [place], [place]) Address [address] [place] [address] Care Team Providers Care Piper Helper Name Role Phone Unavailable Primary Care Provider Unavailabl e Encounter Details Date Type Department Care Team (Late st Contact Info) Description 10/12/2019 Transcribed Document [facility] [place] [address] [place] [address] ProviderChip MD [address] [place] [address] Social History Tobacco Use Types [...] - Historical ProviderMD - 10/12/2019 8:56 AM TENNIS CAMP INSTRUCTOR UM Authorization Entered On: 10/12/2019 8:56 EST Performed On: 10/12/2019 8:56 EST by PAPO EDWARDS Rn-Utilization Review Primary Insurance Authorization Authorization and Policy Numbers : Insurance 1 Health Plan: [facility] Policy Number: [id number] Authorization Number: Insurance Primary Name : [facility] Policy Number: [id number] Historical Authorization Comments-Primary : No Authorization Comments Found PAPO EDWARDS Rn-Utilization Review - 10/12/2019 8:56 EST documented in this encounter Plan of Treatment Not on file documented as of this encounter Visit Diagnoses Not on filedocumented in this encounter
--- OUTSIDE RECORDS SUMMARY | 2025-05-18 10:50 | XMS_ITS | Encounter Summary ---
Author Organization [employer] ([place], [place], [place], [place]) Address [address] [place] [address] Care Team Providers Care Uat Tester Name Role Phone Unavailable Primary Care Provider Unavailabl e Encounter Details Date Type Department Care Team (Late st Contact Info) Description 10/18/2019 Transcribed Document [facility] [place] Family Medicine [address] [place] [address] ProviderChip MD [address] [place] [address] Social History Tobacco Use [...] - Historical ProviderMD - 10/18/2019 2:01 PM RESOURCE AGENT UM Authorization Entered On: 10/18/2019 14:01 EST Performed On: 10/18/2019 14:01 EST by Kym Kim, Standards Analyst Primary Insurance Authorization Authorization and Policy Numbers : Insurance 1 Health Plan: [facility] Policy Number: [id number] Authorization Number: Insurance Primary Name : [facility] Policy Number: [id number] Authorization Status-Primary : Denial - admission Auth/Referral Contact Name-Primary : [place] + Authorized Service Begin Date-Primary : 10/11/2019 EST Historical Authorization Comments-Primary : Comment 1: Emailed denial letter, p2p form, and MCG to RD/[facility] (CONSUELO JAMES RN 10/13/2019 10:03) Comment 2: per call from [facility] with [facility]. Denied as not meeting INPT. Will also fax us a denial letter with appeal info.[facility]# [phone] (SALLY KAUR, Solvent Plant Treater 10/12/2019 15:19) Kym Kim, Standards Analyst - 10/18/2019 14:01 EST Electronically signed by Barbara [facility] Conversion Shake Feeder Cerner at 12/17/2022 6:23 PM CDT documented in this encounter Plan of Treatment Not on file documented as of this encounter Visit Diagnoses Not on filedocumented in this encounter
--- OUTSIDE RECORDS SUMMARY | 2025-05-18 10:51 | XMS_ITS | Referral Summary ---
Author Organization [employer] ([place], [place], [place], [place]) Address [address] [place] [address] Care Team Providers Care Joiner Helper Name Role Phone Unavailable Primary Care [...]
--- OUTSIDE RECORDS SUMMARY | 2025-05-18 10:51 | XMS_ITS | Encounter Summary ---
Author Organization [employer] ([place], [place], [place], [place]) Address [address] [place] [address] Care Team Providers Care Mini Bar Attendant Name Role Phone Unavailable Primary Care Provider Unavailabl e Encounter Details Date Type Department Care Team (Late st Contact Info) Description 10/12/2019 Transcribed Document [facility] [place] [address] [place] [address] ProviderChip MD [address] [place] [address] Social History Tobacco Use Types [...] - Historical ProviderMD - 10/12/2019 1:58 PM CASINO FLOOR PERSON UM Authorization Entered On: 10/12/2019 13:58 EST Performed On: 10/12/2019 13:58 EST by Kym Kim Applications Project Manager Primary Insurance Authorization Authorization and Policy Numbers : Insurance 1 Health Plan: [facility] Policy Number: [id number] Authorization Number: Insurance Primary Name : [facility] Policy Number: [id number] Auth/Referral Contact Name-Primary : [place] Historical Authorization Comments-Primary : No Authorization Comments Found Kym Kim, Applications Project Manager - 10/12/2019 13:58 EST Electronically signed by Barbara [facility] Conversion Supervisor Transcribing Operators Cerner at 12/17/2022 6:10 PM CDT documented in this encounter Plan of Treatment Not on file documented as of this encounter Visit Diagnoses Not on filedocumented in this encounter
--- OUTSIDE RECORDS SUMMARY | 2025-05-18 10:51 | XMS_ITS | Encounter Summary ---
Author Organization [employer] ([place], [place], [place], [place]) Address [address] [place] [address] Care Team Providers Care Souvenir And Novelty Maker Name Role Phone Unavailable Primary Care Provider Unavailabl e Encounter Details Date Type Department Care Team (Late st Contact Info) Description 10/11/2019 Transcribed Document [facility] [place] [address] ProviderChip MD [address] [place] [address] Social History Tobacco Use Types [...] - Historical ProviderMD - 10/11/2019 5:33 PM CENTRIFUGAL OPERATOR DATE OF ADMISSION: 10/11/2019 PRIMARY CARE [...] was reviewed. Critical time spent, 55 minutes. /[id number] MD AYUSH Lantigua/MILLY / AYUSH / DONNA documented in this encounter Plan of Treatment Not on file documented as of this encounter Visit Diagnoses Not on filedocumented in this encounter
--- OUTSIDE RECORDS SUMMARY | 2025-05-18 10:51 | XMS_ITS | Encounter Summary ---
Author Organization [employer] ([place], [place], [place], [place]) Address [address] [place] [address] Care Team Providers Care Tonal Regulator Name Role Phone Unavailable Primary Care Provider Unavailabl e Encounter Details Date Type Department Care Team (Late st Contact Info) Description 10/24/2019 Transcribed Document [facility] [place] [facility] [place] [address] ProviderChip MD [facility] [place] [address] Social History Tobacco Use Types [...] - Historical ProviderMD - 10/24/2019 11:34 AM YARDAGE CALLER UM Authorization Entered On: 10/24/2019 11:34 EST Performed On: 10/24/2019 11:34 EST by CONSUELO JAMES RN Primary Insurance Authorization Authorization and Policy Numbers : Insurance 1 Health Plan: [facility] Policy Number: [id number] Authorization Number: Insurance Primary Name : [facility] Policy Number: [id number] Authorization Status-Primary : Denial - admission Auth/Referral [...] us a denial letter with appeal info.[facility]# [phone] (SALLY KAUR, Gridcap Machine Operator 10/12/2019 15:19) CONSUELO JAMES RN - 10/24/2019 11:34 EST Electronically signed by Barbara, [facility] Conversion Linux Kernel Engineer Cerner at 12/17/2022 6:25 PM CDT documented in this encounter Plan of Treatment Not on file documented as of this encounter Visit Diagnoses Not on filedocumented in this encounter
--- OUTSIDE RECORDS SUMMARY | 2025-05-18 10:51 | XMS_ITS | Encounter Summary ---
Author Organization [employer] ([place], [place], [place], [place]) Address [address] [place] [address] Care Team Providers Care Technical Analyst Name Role Phone Unavailable Primary Care Provider Unavailabl e Encounter Details Date Type Department Care Team (Late st Contact Info) Description 10/11/2019 Transcribed Document [facility] [place] [facility] [address] [place] [address] ProviderChip MD [address] [place] [address] Social History Tobacco Use Types [...] - Historical ProviderMD - 10/11/2019 10:00 AM TANK DRIVER Consult Phone Call Documentation Entered On: 10/11/2019 17:58 EST Performed On: 10/11/2019 10:00 EST by Urszula Zayas Residential Director-Health Unit Coord Phone Call for Consults Consult Phone Call/Page Attempt : Second call Consult Reason : PNA Consult, Additional Information : Dr. Pollard hairspring fabrication supervisor Urszula Zayas, Residential Director-Health Unit Coord - 10/11/2019 17:58 EST documented in this encounter Plan of Treatment Not on file documented as of this encounter Visit Diagnoses Not on filedocumented in this encounter
--- OUTSIDE RECORDS SUMMARY | 2025-05-18 10:51 | XMS_ITS | Encounter Summary ---
Author Organization [employer] ([place], [place], [place], [place]) Address [address] [place] [address] Care Team Providers Care Manager Port Name Role Phone Unavailable Primary Care Provider Unavailabl e Encounter Details Date Type Department Care Team (Late st Contact Info) Description 10/24/2019 Transcribed Document [facility] [place] [address] [place] [address] ProviderChip MD [address] [place] [address] Social History Tobacco Use Types [...] - Historical ProviderMD - 10/24/2019 1:05 PM MEDICAL OFFICE SECRETARY UM Authorization Entered On: 10/24/2019 13:05 EST Performed On: 10/24/2019 13:05 EST by CONSUELO JAMES RN Primary Insurance Authorization Authorization and Policy Numbers : Insurance 1 Health Plan: [facility] Policy Number: [id number] Authorization Number: Insurance Primary Name : [facility] Policy Number: [id number] Authorization Status-Primary : Denial - admission Auth/Referral [...] a denial letter with appeal info.[facility] ph# [phone] (SALLY KAUR, Training Technician 10/12/2019 15:19) CONSUELO JAMES, ADDY - 10/24/2019 13:05 EST Electronically signed by Barbara [facility] Conversion Food Technician Cerner at 12/17/2022 6:34 PM CDT documented in this encounter Plan of Treatment Not on file documented as of this encounter Visit Diagnoses Not on filedocumented in this encounter
--- OUTSIDE RECORDS SUMMARY | 2025-05-18 10:51 | XMS_ITS | Patient Health Record ---
Author Organization [facility] Address [address] [place] [address] Care Team Providers Care Road Passenger Firer Name Role Phone Rosa Enriquez Primary Care Provider Allergies Allergen (clinical drug ingredient) Drug/Non Drug Allergy documented on EMR Reaction Allergy Type Onset Date Status amoxicillin Amoxicillin Unknown Drug Allergy Act jalil Penicillin Unknown Drug Allergy Active Reason For Referral No Information Problems Problem Type SNOMED Code ICD Code Onset Dates Problem Status W/U Status Risk Notes Problem Alcohol dependence (56893129) Uncomplicated alcohol dependence (F10.20) Active confirmed Problem Opioid dependence (45262144) Uncomplicated opioid dependence (F11.20) Active confirmed Plan Of Treatment No Information Insurance Providers Payer Name Payer Address Payer Phone Subscriber Number Group Number Insured Name Patient Relationship to Insured Coverage Start Date Coverage End Date [facility] Medicaid [address] [address] [place] [address] [id number] Hellen Todd Self - patient is the insured 2 Medical (General) History Medical History History ICD Code hypertension anxiety depression Surgical History Surgery Date(Month/Year) Section kidney stone surgery Hospitalization History Reason Date(Month/Year) childbirth
[2025-05-19 07:18] LABS: Triiodothyronine (T3) Free 4.1 pg/mL (2.0-4.4)
== END 2025-05-17 23:59 | disposition home or self-care (01) ==
LOC: LAB.DROPOF 05-18 10:48
PROVIDERS: PCP Nurse Practitioner Family; Visit Provider Nurse Practitioner Family
DX: G25.3 Myoclonus (principal); R60.9 Edema, unspecified
CPT/HCPCS: 80053; 84443; 84481

== ENCOUNTER 2025-06-05 18:19 | Emergency (ER) | payer OTHER, SELFPAY ==
[2025-06-05 18:27] VITALS: BP 141/99; PULSE 107; RESP 16; TEMP 36.8; O2SAT 99; BMI 40.9
[2025-06-05 18:39] VITALS: BP 135/92; PULSE 93; RESP 18; O2SAT 96
--- OUTSIDE RECORDS SUMMARY | 2025-06-05 18:42 | XMS_ITS | Encounter Summary ---
Author Organization [employer] ([place], [place], [place], [place]) Address [address] [place] [address] Care Team Providers Care Market Analyst Name Role Phone Unavailable Primary Care Provider Unavailabl e Encounter Details Date Type Department Care Team (Late st Contact Info) Description 10/18/2019 Transcribed Document [facility] [place] [address] [place] [address] ProviderChip MD [address] [place] [address] Social History Tobacco Use Types [...] - Historical ProviderMD - 10/18/2019 2:01 PM STRUCTURAL FITTER UM Authorization Entered On: 10/18/2019 14:01 EST Performed On: 10/18/2019 14:01 EST by Kym Kim, [facility] Primary Insurance Authorization Authorization and Policy Numbers : Insurance 1 Health Plan: [facility] Policy Number: [id number] Authorization Number: Insurance Primary Name : [facility] Policy Number: [id number] Authorization Status-Primary : Denial - admission Auth/Referral Contact Name-Primary : [place] + Authorized Service Begin Date-Primary : 10/11/2019 EST Historical Authorization Comments-Primary : Comment 1: Emailed denial letter, p2p form, and MCG to [facility] (CONSUELO JAMES RN 10/13/2019 10:03) Comment 2: per call from [facility] with [facility]. Denied as not meeting INPT. Will also fax us a denial letter with appeal info.[facility]# [phone] (SALLY KAUR, Business Continuity Global Director 10/12/2019 15:19) Kym Kim, [facility] - 10/18/2019 14:01 EST Electronically signed by Barbara [facility] Conversion Building Construction Supervisor Cerner at 12/17/2022 6:23 PM CDT documented in this encounter Plan of Treatment Not on file documented as of this encounter Visit Diagnoses Not on filedocumented in this encounter
--- OUTSIDE RECORDS SUMMARY | 2025-06-05 18:42 | XMS_ITS | Encounter Summary ---
Author Organization [employer] ([place], [place], [place], [place]) Address [address] [place] [address] Care Team Providers Care Tug Captain Name Role Phone Unavailable Primary Care Provider Unavailabl e Encounter Details Date Type Department Care Team (Late st Contact Info) Description 10/12/2019 Transcribed Document [facility] [place] [address] [place] [address] ProviderChip MD [address] [place] [address] Social History Tobacco Use Types [...] - Historical ProviderMD - 10/12/2019 3:19 PM BIOINFORMATICIST UM Authorization Entered On: 10/12/2019 15:20 EST Performed On: 10/12/2019 15:19 EST by SALLY KAUR, Leadership Coach Primary Insurance Authorization Authorization and Policy Numbers : Insurance 1 Health Plan: [facility] Policy Number: [id number] Authorization Number: Insurance Primary Name : [facility] Policy Number: [id number] Authorization Status-Primary : Awaiting callback Auth/Referral Contact Name-Primary : [place] Authorized Service Begin Date-Primary : 10/11/2019 EST Authorization Comments-Primary : per call from [facility] with [facility] Denied as not meeting INPT. Will also fax us a denial letter with appeal info. [facility]# [phone] Historical Authorization Comments-Primary : No Authorization Comments Found SALLY KAUR, Leadership Coach - 10/12/2019 15:19 EST Electronically signed by Interface, [facility] Conversion Cleaning Validation Consultant Cerner at 12/17/2022 6:19 PM CDT documented in this encounter Plan of Treatment Not on file documented as of this encounter Visit Diagnoses Not on filedocumented in this encounter
--- OUTSIDE RECORDS SUMMARY | 2025-06-05 18:42 | XMS_ITS | Referral Summary ---
Author Organization [employer] ([place], [place], [place], [place]) Address [address] [place] [address] Care Team Providers Care Crop Adjuster Name Role Phone Unavailable Primary Care Provider [...]
--- OUTSIDE RECORDS SUMMARY | 2025-06-05 18:42 | XMS_ITS | Encounter Summary ---
Author Organization [employer] ([place], [place], [place], [place]) Address [address] [place] [address] Care Team Providers Care Cans Vacuum Tester Name Role Phone Unavailable Primary Care Provider Unavailabl e Encounter Details Date Type Department Care Team (Late st Contact Info) Description 10/12/2019 Transcribed Document [facility] [place] Family Medicine [address] [place] [address] ProviderChip MD [address] [place] [address] Social History Tobacco Use [...] - Historical ProviderMD - 10/12/2019 8:56 AM CERTIFIED FAMILY MEDIATOR UM Authorization Entered On: 10/12/2019 8:56 EST Performed On: 10/12/2019 8:56 EST by PAPO EDWARDS Rn-Utilization Review Primary Insurance Authorization Authorization and Policy Numbers : Insurance 1 Health Plan: [facility] Policy Number: [id number] Authorization Number: Insurance Primary Name : [facility] Policy Number: [id number] Historical Authorization Comments-Primary : No Authorization Comments Found PAPO EDWARDS Rn-Utilization Review - 10/12/2019 8:56 EST Electronically signed by Frieda Jimenez Conversion Orthodontic Technician Assistant Cerner at 12/17/2022 6:13 PM CDT documented in this encounter Plan of Treatment Not on file documented as of this encounter Visit Diagnoses Not on filedocumented in this encounter
--- OUTSIDE RECORDS SUMMARY | 2025-06-05 18:42 | XMS_ITS | Clinical Summary ---
Author Organization [employer] ([place], [place], [place], [place]) Address [address] [place] [address] Care Team Providers Care Equities Analyst Name Role Phone Unavailable Primary Care [...]
--- OUTSIDE RECORDS SUMMARY | 2025-06-05 18:42 | XMS_ITS | Encounter Summary ---
Author Organization [employer] ([place], [place], [place], [place]) Address [address] [place] [address] Care Team Providers Care Creative Coordinator Name Role Phone Unavailable Primary Care Provider Unavailabl e Encounter Details Date Type Department Care Team (Late st Contact Info) Description 10/11/2019 Transcribed Document [facility] [place] [address] [place] [address] ProviderChip MD [address] [place] [address] Social History Tobacco Use Types [...] - Historical ProviderMD - 10/11/2019 5:33 PM PEST CONTROL OPERATOR DATE OF ADMISSION: 10/11/2019 PRIMARY CARE [...] was abnormal. The patient was transferred to [facility] for infectious disease and pulmonary evaluation. [...] was reviewed. Critical time spent, 55 minutes. /[id number] MD AYUSH Lantigua/MILLY / AYUSH / DONNA documented in this encounter Plan of Treatment Not on file documented as of this encounter Visit Diagnoses Not on filedocumented in this encounter
--- OUTSIDE RECORDS SUMMARY | 2025-06-05 18:42 | XMS_ITS | Encounter Summary ---
Author Organization [employer] ([place], [place], [place], [place]) Address [address] [place] [address] Care Team Providers Care Director Report Name Role Phone Unavailable Primary Care Provider Unavailabl e Encounter Details Date Type Department Care Team (Late st Contact Info) Description 10/12/2019 Transcribed Document [facility] [place] [address] [place] [address] ProviderChip MD [address] [place] [address] Social History Tobacco Use Types [...] - Historical ProviderMD - 10/12/2019 3:20 PM DELIVERER MERCHANDISE UM Authorization Entered On: 10/12/2019 15:21 EST Performed On: 10/12/2019 15:20 EST by SALLY KAUR, Vacuum System Tester Primary Insurance Authorization Authorization and Policy Numbers : Insurance 1 Health Plan: [facility] Policy Number: [id number] Authorization Number: Insurance Primary Name : [facility] Policy Number: [id number] Authorization Status-Primary : Awaiting callback Auth/Referral Contact Name-Primary : [place] Authorized Service Begin Date-Primary : 10/11/2019 EST Historical Authorization Comments-Primary : Comment 1: per call from [facility] with [facility]. Denied as not meeting INPT. Will also fax us a denial letter with appeal info.P # [phone] (SALLY KAUR, Vacuum System Tester 10/12/2019 15:19) SALLY KAUR, Vacuum System Tester - 10/12/2019 15:20 EST Electronically signed by Barbara, [facility] Conversion Value Engineer Cerner at 12/17/2022 6:12 PM CDT documented in this encounter Plan of Treatment Not on file documented as of this encounter Visit Diagnoses Not on filedocumented in this encounter
--- OUTSIDE RECORDS SUMMARY | 2025-06-05 18:42 | XMS_ITS | Encounter Summary ---
Author Organization [employer] ([place], [place], [place], [place]) Address [address] [place] [address] Care Team Providers Care Matrix Supervisor Name Role Phone Unavailable Primary Care Provider Unavailabl e Encounter Details Date Type Department Care Team (Late st Contact Info) Description 10/11/2019 Transcribed Document [facility] [place] [address] [place] [address] ProviderChip MD [address] [place] [address] Social History Tobacco Use Types [...] - Historical ProviderMD - 10/11/2019 10:00 AM CIRCLE SHEAR OPERATOR Consult Phone Call Documentation Entered On: 10/11/2019 17:58 EST Performed On: 10/11/2019 10:00 EST by Urszula Zayas Group Product Manager-Health Unit Coord Phone Call for Consults Consult Phone Call/Page Attempt : Second call Consult Reason : PNA Consult, Additional Information : Dr. Pollard professional system administrator Urszula Zayas, Group Product Manager-Health Unit Coord - 10/11/2019 17:58 EST Electronically signed by Frieda Jimenez Conversion Military Logistics Specialist Cermarc at 12/17/2022 6:21 PM CDT documented in this encounter Plan of Treatment Not on file documented as of this encounter Visit Diagnoses Not on filedocumented in this encounter
--- OUTSIDE RECORDS SUMMARY | 2025-06-05 18:42 | XMS_ITS | Encounter Summary ---
Author Organization [employer] ([place], [place], [place], [place]) Address [address] [place] [address] Care Team Providers Care Rounding And Backing Machine Operator Name Role Phone Unavailable Primary Care Provider Unavailabl e Encounter Details Date Type Department Care Team (Late st Contact Info) Description 10/11/2019 Transcribed Document [facility] [place] [address] [place] [address] ProviderChip MD [address] [place] [address] Social History Tobacco Use Types [...] - Historical ProviderMD - 10/11/2019 7:03 AM AVIONICS ENGINEER Consult Phone Call Documentation Entered On: 10/11/2019 16:54 EST Performed On: 10/11/2019 7:03 EST by Urszula Zayas, [facility] Unit Coord Phone Call for Consults Consult Phone Call/Page Attempt : First call Consult Reason : Lung Cavity? Provider Team Notified Name : Pulmonary medicine Consult, Additional Information : Call was answered and hung up upon Urszula Zayas, [facility] Unit Coord - 10/11/2019 16:54 EST documented in this encounter Plan of Treatment Not on file documented as of this encounter Visit Diagnoses Not on filedocumented in this encounter
--- OUTSIDE RECORDS SUMMARY | 2025-06-05 18:42 | XMS_ITS | Encounter Summary ---
Author Organization [employer] ([place], [place], [place], [place]) Address [address] [place] [address] Care Team Providers Care Data Center Architect Name Role Phone Unavailable Primary Care Provider Unavailabl e Encounter Details Date Type Department Care Team (Late st Contact Info) Description 10/24/2019 Transcribed Document [facility] [place] Family Medicine [address] [place] [address] ProviderChip MD [address] [place] [address] Social History Tobacco Use Types [...] - Historical ProviderMD - 10/24/2019 1:05 PM CERTIFIED CREDIT COUNSELOR UM Authorization Entered On: 10/24/2019 13:05 EST Performed On: 10/24/2019 13:05 EST by CONSUELO JAMES RN Primary Insurance Authorization Authorization and Policy Numbers : Insurance 1 Health Plan: [facility] Policy Number: [id number] Authorization Number: Insurance Primary Name : [facility] Policy Number: [id number] Authorization Status-Primary : Denial - admission Auth/Referral [...] a denial letter with appeal info.[facility] ph# [phone] (SALLY KAUR, Teradata Solution Architect 10/12/2019 15:19) CONSUELO JAMES, ADDY - 10/24/2019 13:05 EST Electronically signed by Barbara [facility] Conversion Radiology Special Procedure Tech Cerner at 12/17/2022 6:34 PM CDT documented in this encounter Plan of Treatment Not on file documented as of this encounter Visit Diagnoses Not on filedocumented in this encounter
--- OUTSIDE RECORDS SUMMARY | 2025-06-05 18:42 | XMS_ITS | Encounter Summary ---
Author Organization [employer] ([place], [place], [place], [place]) Address [address] [place] [address] Care Team Providers Care Infant Teacher Name Role Phone Unavailable Primary Care Provider Unavailabl e Encounter Details Date Type Department Care Team (Late st Contact Info) Description 10/13/2019 Transcribed Document [facility] [place] [address] [place] [address] ProviderChip MD [address] [place] [address] Social History Tobacco Use Types [...] - Historical ProviderMD - 10/13/2019 10:03 AM LAUNDRY MACHINE TENDER UM Authorization Entered On: 10/13/2019 10:03 EST Performed On: 10/13/2019 10:03 EST by CONSUELO JAMES RN Primary Insurance Authorization Authorization and Policy Numbers : Insurance 1 Health Plan: [facility] Policy Number: [id number] Authorization Number: Insurance Primary Name : [facility] Policy Number: [id number] Authorization Status-Primary : Denial - admission Auth/Referral Contact Name-Primary : [place] Authorized Service Begin Date-Primary : 10/11/2019 EST Authorization Comments-Primary : Emailed denial letter, p2p form, and MCG to [facility] Historical Authorization Comments-Primary : Comment 1: per call from [facility] with [facility]. Denied as not meeting INPT. Will also fax us a denial letter with appeal info.[facility] ph# [phone] (SALLY KAUR, Medical Anthropologist 10/12/2019 15:19) CONSUELO JAMES RN - 10/13/2019 10:03 EST documented in this encounter Plan of Treatment Not on file documented as of this encounter Visit Diagnoses Not on filedocumented in this encounter
--- OUTSIDE RECORDS SUMMARY | 2025-06-05 18:42 | XMS_ITS | Encounter Summary ---
Author Organization [employer] ([place], [place], [place], [place]) Address [address] [place] [address] Care Team Providers Care Associate Civil Engineer Name Role Phone Unavailable Primary Care Provider Unavailabl e Encounter Details Date Type Department Care Team (Late st Contact Info) Description 10/12/2019 Transcribed Document [facility] [place] [facility] [place] [address] ProviderChip MD [address] [place] [address] Social History Tobacco Use Types [...] - Chip ProviderMD - 10/12/2019 2:13 AM MINERAL ORE PROCESSING LABOURER DATE OF DISCHARGE: 10/11/2019 The patient left [...] the lung. The patient was transferred to [facility] for Infectious Disease and Pulmonary consult. [...] Chart was reviewed. Time spent, 40 minutes. /[id number] MD AYUSH Lantigua/MILLY / AYUSH / DONNA /[id number] Electronically signed by Barbara [facility] Conversion Prepared Foods Production Team Member Cerner at 12/17/2022 6:11 PM CDT documented in this encounter Plan of Treatment Not on file documented as of this encounter Visit Diagnoses Not on filedocumented in this encounter
--- OUTSIDE RECORDS SUMMARY | 2025-06-05 18:42 | XMS_ITS | Patient Health Record ---
Author Organization [facility] Address [address] [place] [address] Care Team Providers Care Underground Production Foreperson Name Role Phone Rosa Enriquez Primary Care Provider Allergies Allergen (clinical drug ingredient) Drug/Non Drug Allergy documented on EMR Reaction Allergy Type Onset Date Status amoxicillin Amoxicillin Unknown Drug Allergy Act jalil Penicillin Unknown Drug Allergy Active Reason For Referral No Information Problems Problem Type SNOMED Code ICD Code Onset Dates Problem Status W/U Status Risk Notes Problem Alcohol dependence (71018431) Uncomplicated alcohol dependence (F10.20) Active confirmed Problem Opioid dependence (88910537) Uncomplicated opioid dependence (F11.20) Active confirmed Plan Of Treatment No Information Insurance Providers Payer Name Payer Address Payer Phone Subscriber Number Group Number Insured Name Patient Relationship to Insured Coverage Start Date Coverage End Date [facility] Medicaid [address] [address] [place] [address] [id number] Hellen Todd Self - patient is the insured 2 Medical (General) History Medical History History ICD Code hypertension anxiety depression Surgical History Surgery Date(Month/Year) Section kidney stone surgery Hospitalization History Reason Date(Month/Year) childbirth
--- OUTSIDE RECORDS SUMMARY | 2025-06-05 18:42 | XMS_ITS | Encounter Summary ---
Author Organization [employer] ([place], [place], [place], [place]) Address [address] [place] [address] Care Team Providers Care Grab Driver Name Role Phone Unavailable Primary Care Provider Unavailabl e Encounter Details Date Type Department Care Team (Late st Contact Info) Description 10/12/2019 Transcribed Document [facility] [place] [address] [place] [address] ProviderChip MD [address] [place] [address] Social History Tobacco Use Types [...] - Historical ProviderMD - 10/12/2019 1:58 PM TIP OUT WORKER UM Authorization Entered On: 10/12/2019 13:58 EST Performed On: 10/12/2019 13:58 EST by Kym Kim Clinical Research Spec Primary Insurance Authorization Authorization and Policy Numbers : Insurance 1 Health Plan: [facility] Policy Number: [id number] Authorization Number: Insurance Primary Name : [facility] Policy Number: [id number] Auth/Referral Contact Name-Primary : [place] Historical Authorization Comments-Primary : No Authorization Comments Found Kym Kim, Clinical Research Spec - 10/12/2019 13:58 EST Electronically signed by Barbara [facility] Conversion Gyroscopic Instrument Mechanic Cerner at 12/17/2022 6:10 PM CDT documented in this encounter Plan of Treatment Not on file documented as of this encounter Visit Diagnoses Not on filedocumented in this encounter
--- OUTSIDE RECORDS SUMMARY | 2025-06-05 18:42 | XMS_ITS | Encounter Summary ---
Author Organization [employer] ([place], [place], [place], [place]) Address [address] [place] [address] Care Team Providers Care Television Camera Operator Name Role Phone Unavailable Primary Care Provider Unavailabl e Encounter Details Date Type Department Care Team (Late st Contact Info) Description 10/24/2019 Transcribed Document [facility] [place] Family Medicine [facility] [place] [address] ProviderChip MD [place] [address] Social History Tobacco Use Types [...] - Historical ProviderMD - 10/24/2019 11:34 AM GLASS CUTTER HAND UM Authorization Entered On: 10/24/2019 11:34 EST Performed On: 10/24/2019 11:34 EST by CONSUELO JAMES RN Primary Insurance Authorization Authorization and Policy Numbers : Insurance 1 Health Plan: [facility] Policy Number: [id number] Authorization Number: Insurance Primary Name : [facility] Policy Number: [id number] Authorization Status-Primary : Denial - admission Auth/Referral [...] us a denial letter with appeal info.[facility]# [phone] (SALLY KAUR, Clinical Project Leader 10/12/2019 15:19) CONSUELO JAMES RN - 10/24/2019 11:34 EST Electronically signed by Barbara, [facility] Conversion Wax Ball Knock Out Worker Cerner at 12/17/2022 6:25 PM CDT documented in this encounter Plan of Treatment Not on file documented as of this encounter Visit Diagnoses Not on filedocumented in this encounter
--- OUTSIDE RECORDS SUMMARY | 2025-06-05 18:42 | XMS_ITS | Encounter Summary ---
Author Organization [employer] ([place], [place], [place], [place]) Address [address] [place] [address] Care Team Providers Care Global Sales Executive Name Role Phone Unavailable Primary Care Provider Unavailabl e Encounter Details Date Type Department Care Team (Late st Contact Info) Description 10/11/2019 Transcribed Document [facility] [place] [address] [place] [address] ProviderChip MD [address] [place] [address] Social History Tobacco Use Types [...] - Historical Provider, - 10/11/2019 3:11 PM REAL ESTATE OFFICE SUPERVISOR Admission History, Adult Entered On: 10/11/2019 17:00 [...] on Unit : Stretcher Legal Guardian : director volunteer services Legal Guardian : No Support Person/Patient Key Punch Operator : No Contact Password : [id number] Want Family/Rep/Phys Notified of Admit : No Emergency Contact #1 : Yuriy Lewis Emergency Contact #1 Emergency Contact #1 Relationship : Emergency Contact #2 : Yuriy Lewis Emergency Contact #2 Emergency Contact #2 Relationship : Primary Language : Jordanian Preferred Communication Mode : Verbal Communication Barrier [...] Scale Risk Level : 0-24 Low Risk [place] Fall Interventions : Adequate lighting, Assistive devices [...] Source : Stated Height Entry Format : [place] Height, Feet : 5 ft(Converted to: 152 [...] Body Mass Index : 25.4 kg/m2 ([place]) [place] Body Weight : 50 kg Bay Lyons [...] Bay Lyons RN - 10/11/2019 19:12 EST [place] Suicide Severity Rating Scale (C-SSRS) CSSRS Past [...] Items : Other: Purse and cell phone private branch exchange installer Comfort Items Disposition : Bedside, Declines to send to security/safe Jewelry : Bracelet, Ring Jewelry Disposition : With patient, Declines to send to security/safe Personal Items : Cell phone Personal Items Disposition : Bedside Bay Lyons RN - 10/11/2019 19:12 EST Electronically signed by Frieda Jimenez Conversion Projection Welding Machine Operator Cerner at 12/17/2022 6:13 PM CDT documented in this encounter Plan of Treatment Not on file documented as of this encounter Visit Diagnoses Not on filedocumented in this encounter
--- OUTSIDE RECORDS SUMMARY | 2025-06-05 18:42 | XMS_ITS | Encounter Summary ---
Author Organization [employer] ([place], [place], [place], [place]) Address [address] [place] [address] Care Team Providers Care Worm Farmer Name Role Phone Unavailable Primary Care Provider Unavailabl e Encounter Details Date Type Department Care Team (Late st Contact Info) Description 10/12/2019 Transcribed Document [facility] [place] Family Medicine [address] [place] [address] ProviderChip MD [address] [place] [address] Social History Tobacco Use Types [...] - Historical ProviderMD - 10/12/2019 2:00 PM PROGRAM CLINICIAN UM Authorization Entered On: 10/12/2019 14:00 EST Performed On: 10/12/2019 14:00 EST by PAPO EDWARDS Rn-Utilization Review Primary Insurance Authorization Authorization and Policy Numbers : Insurance 1 Health Plan: [facility] Policy Number: [id number] Authorization Number: Insurance Primary Name : [facility] Policy Number: [id number] Authorization Status-Primary : Awaiting callback Auth/Referral Contact Name-Primary : [place] Authorized Service Begin Date-Primary : 10/11/2019 EST Historical Authorization Comments-Primary : No Authorization Comments Found PAPO EDWARDS Rn-Utilization Review - 10/12/2019 14:00 EST Electronically signed by Barbara [facility] Conversion Print Producer Cerner at 12/17/2022 6:29 PM CDT documented in this encounter Plan of Treatment Not on file documented as of this encounter Visit Diagnoses Not on filedocumented in this encounter
--- NOTE | 2025-06-05 19:04 | ED_ITS ---
Discharge Plan Disposition Patient Disposition: Home, Self-Care Prescriptions Prescriptions: No Action prazosin 5 mg capsule 10 mg PO HS buspirone 7.5 mg tablet 7.5 mg PO BID 30 Days Qty: 60 1RF albuterol sulfate [Ventolin HFA] 90 mcg/actuation HFA aerosol inhaler 2 puff inhalation Q4-6H PRN furosemide [Lasix] 20 mg tablet 20 mg PO DAILY PRN (Reason: edema) Qty: 30 2RF itraconazole 10 mg/mL solution 100 mg PO DAILY 14 Days Qty: 140 0RF Rx Instructions: administer on an empty stomach phentermine 37.5 mg tablet 37.5 mg PO DAILY 30 Days Qty: 30 0RF Rx Instructions: must administer 30 minutes before or 1-2 hours after breakfast omeprazole 40 mg capsule,delayed release(DR/EC) 40 mg PO DAILY Qty: 30 5RF duloxetine 30 mg capsule,delayed release(DR/EC) 30 mg PO DAILY 30 Days Qty: 30 0RF levocetirizine 5 mg tablet See Rx Instructions .ROUTE .COMPLEX Qty: 30 0RF Dose Instruction: TAKE 1 TABLET BY MOUTH ONCE DAILY Rx Instructions: TAKE 1 TABLET BY MOUTH ONCE DAILY cyclobenzaprine 10 mg tablet See Rx Instructions .ROUTE .COMPLEX Qty: 30 0RF Dose Instruction: TAKE 1 TABLET BY MOUTH AT BEDTIME FOR MUSCLE SPASMS Rx Instructions: TAKE 1 TABLET BY MOUTH AT BEDTIME FOR MUSCLE SPASMS cholecalciferol (vitamin D3) 50 mcg (2,000 unit) capsule See Rx Instructions .ROUTE .COMPLEX Qty: 30 0RF Dose Instruction: TAKE 1 CAPSULE BY MOUTH ONCE DAILY Rx Instructions: TAKE 1 CAPSULE BY MOUTH ONCE DAILY hydroxyzine HCl 25 mg tablet See Rx Instructions .ROUTE .COMPLEX Qty: 90 0RF Dose Instruction: TAKE 1 TABLET BY MOUTH THREE TIMES DAILY NEEDED FOR ANXIETY Rx Instructions: TAKE 1 TABLET BY MOUTH THREE TIMES DAILY NEEDED FOR ANXIETY valacyclovir 1 gram tablet See Rx Instructions .ROUTE .COMPLEX Qty: 60 0RF Dose Instruction: TAKE 1 TABLET BY MOUTH TWICE DAILY Rx Instructions: TAKE 1 TABLET BY MOUTH TWICE DAILY Referrals Follow up/Referrals: Korin Murillo APRN [Primary Care Provider, Medical] - See instructions Activity Restrictions/Add. Instructions Additional Instructions/Restrictions: If you develop any new or worsening symptoms, or if you become concerned for your help for any reason, return to the emergency department for evaluation. Clinical Impressions Clinical Impression: Headache Instructions Patient Instructions: DI for Urinary Tract Infection (UTI), DI for Urinary Tract Infection in Children Print Language Print Language: Bengali Discharge ED Provider: Mo Vega General Adult HPI General Chief complaint: Urogenital-Female Stated complaint: Possible Miscarriage on 06-02-25 Time Seen by Provider: 06/05/25 18:51 Mode of Arrival: Ambulatory Source of Information: Patient Description of Symptoms (Recalled from ER Triage Doc. by RN): patient presents ot the ED after thinking she experienced a miscarriage at home thursday night. patient stated she thought it was her period starting but the bleeding only lasted 2 days and she experienced extreme abdominal cramping and sweats. History of Present Illness HPI narrative: Hellen Todd is a 30F with a history of migraines, who presents to the emergency department for complaints of vaginal bleeding as well as a headache. Patient states that on Thursday, she had vaginal bleeding with blood clots. She states that her last period was 1 month prior. She states that she often has blood clots with her menstrual cycle, however these appeared somewhat different and she is concerned there may have been tissue in them. She took a test on Thursday while she was continuing to bleed and it was negative. She states that the bleeding has almost completely stopped. She was initially having abdominal cramping but that has resolved. She denies any fevers. She states that she developed a headache on Thursday, which she has had before and has been diagnosed with migraines. She states that it is typical of her migraine headaches. She describes as pain in her forehead. She has been taking Tylenol and ibuprofen without significant relief. Related Data Home Medications ?Medication ?Instructions ?Recorded ?Confirmed prazosin 5 mg capsule 10 mg PO HS 10/05/2405/30/ 5 albuterol sulfate 90 mcg/actuation 2 puff inhalation Q 4-6H PRN 05/17/25 05/30/25 aerosol inhaler (Ventolin HFA) Previous Rx's ?Medication ?Instructions ?Recorded omeprazole 40 mg capsule,delayed 40 mg PO DAILY #30 ca ps 03/10/25 release buspirone 7.5 mg tablet 7.5 mg PO BID 30 days #60 ta bs 04/03/25 duloxetine 30 mg capsule,delayed 30 mg PO DAILY 30 day s #30 caps 04/25/25 release levocetirizine 5 mg tablet See Rx Instructions .Route 05/03/25 .COMPLEX #30 tabs cyclobenzaprine 10 mg tablet See Rx Instructions .Rout e 05/05/25 .COMPLEX #30 tabs furosemide 20 mg tablet (Lasix) 20 mg PO DAILY PRN moo ma #30 tabs 05/17/25 itraconazole 10 mg/mL oral solution 100 mg (10 mL) PO DAILY 14 days 05/17/25 #140 mL phentermine 37.5 mg tablet 37.5 mg PO DAILY 30 days #3 0 tabs 05/17/25 cholecalciferol (vitamin D3) 50 See Rx Instructions .R oute 05/19/25 mcg (2,000 unit) capsule .COMPLEX #30 caps hydroxyzine HCl 25 mg tablet See Rx Instructions .Rout e 05/19/25 .COMPLEX #90 tabs valacyclovir 1 gram tablet See Rx Instructions .Route 05/19/25 .COMPLEX #60 tabs Allergies Allergy/AdvReac Type Severity Reaction Status Date / Time codeine Allergy Mild Vomiting Verified 05/30/25 13:29 penicillin G (PENICILLIN G) Allergy Mild Vomiting Verified 05/30/25 13:29 amoxicillin AdvReac Mild NA-NAUSEA/V Verified 05/30/25 13:29 OMITING PFSH PFSH Disclaimer: The information contained in this section may have been updated after the patient was seen, as this information can be updated by other users. Medical History Essential (primary) hypertension Vapes nicotine containing substance Abnormal electrocardiogram [ECG] [EKG] Insect bite (nonvenomous), left thigh, initial encounter Endocarditis History of nephrolithotomy with removal of calculi Depression Endoarteritis Kidney stones Surgical History History of Family History Family/Other Diabetes Hyperlipidemia Hypertension Depression Coronary artery disease Social History Smoking Status: Never smoker alcohol intake: never substance use type: former substance user, heroin and methamphetamine current occupational status: employed Travel in the last 8 weeks?: None housing: house caffeine: Yes Have you lived/traveled outside US in past 30 days?: No Contact w/someone who lives/traveled outside US past 30 days?: No Exposure to someone with infectious disease in past 14 days?: No Do you have a fever (greater than 100.4 F or 38 C)?: No Have you tested positive for COVID-19?: No Exposed to someone with COVID-19 in past 14 days?: No Do you have a sore throat?: No Do you have a cough?: No Do you have any weakness?: No Do you have any diarrhea?: No Are you experiencing any unusual bleeding?: No Do you have any muscle aches/pain?: No Do you have any abdominal pain?: No Are you experiencing loss of taste or smell?: No Other Medical History Have you received the Flu Vaccine for this season: No Have you received the Pneumonia Vaccine: No ROS Obtained: Yes Systems reviewed as appropriate & no additional complaints except as documented Physical Exam General General appearance: alert and in no apparent distress Head Head exam: atraumatic Eye Eye exam: Present normal appearance, PERRL and EOMI ENT ENT exam: Present normal external ear exam Neck Neck exam: Present full ROM Chest Chest inspection: Present symmetric chest wall rise Respiratory Respiratory exam: Present normal lung sounds bilaterally; Absent respiratory distress Cardiovascular Cardiovascular exam: Present regular rate and normal rhythm Abdominal Exam Abdominal exam: Present soft; Absent distention, tenderness, guarding or rebound Extremities Exam Extremities exam: Present normal inspection Back Exam Back exam: Present normal inspection Neurological Exam Neurological exam: Present alert and oriented X3 Psychiatric Psychiatric exam: Present normal affect Skin Skin exam: Present warm and dry Medical Decision Making Medical Records Screening: Per USPSTF and CDC recommendations, given the prevalence of disease in our region, it is our hospital?s policy to screen for HIV and viral Hepatitis for all patients aged 18 and over and those with ongoing risk factors. Mal Inquiry Pt receiving controlled substance: No Vital Signs: 06/05/25 18:27 06/05/25 18:39 06/05/25 19:50 Temperature 98.2 F 98.0 F Temperature Source Temporal Artery Scan Oral Pulse Rate 93 H 97 H Pulse Rate [Right Radial] 107 H Respiratory Rate 16 18 20 Blood Pressure 135/92 H 137/91 H Blood Pressure [Right Arm] 141/99 H Blood Pressure Mean [Right Arm] 113 Blood Pressure Source Automatic Cuff Manual Cuff/ Auscultation Blood Pressure Source [Right Arm] Automatic Cuff Blood Pressure Position Supine Sitting Blood Pressure Position [Right Arm] Sitting 02 Sat by Pulse Oximetry 99 96 Oxygen Delivery Method Room Air Room Air Room Air Lab Data Lab Results 06/05/25 18:46: Serum HCG, Qual Negative 06/05/25 19:02: Sodium 141, Potassium 3.7, Chloride 106, Carbon Dioxide 24, Anion Gap 14.7, BUN 9, Creatinine 0.90, Estimated Creat Clear 147, Estimated GFR 74, Est GFR ( Amer) 89, Glucose 85, Calcium 9.2, Total Bilirubin 0.6, AST 32, ALT 23, Alkaline Phosphatase 87, Total Protein 7.2, Albumin 4.3, Globulin 2.9, Albumin/Globulin Ratio 1.5 06/05/25 19:11: Urine Color Yellow, Urine Appearance Clear, Urine pH 6.0, Ur Specific [place] 1.025, Urine Protein Negative, Urine Glucose (UA) Negative, Urine Ketones Trace, Urine Blood 3+ A, Urine Nitrate Negative, Urine Bilirubin Negative, Urine Urobilinogen 0.2, Ur Leukocyte Esterase Negative, Urine RBC 10- 20, Urine WBC 3-5, Ur Squamous Epith Cells 5-10, Urine Bacteria Trace, Urine Mucus 1+ 06/05/25 19:20: WBC 7.9, RBC 4.18 L, Hgb 11.6 L, Hct 36.6 L, MCV 87.6, MCH 27.8, MCHC 31.7 L, RDW 14.1, Plt Count 343, MPV 11.5 H, Neut % (Auto) 63.2, Lymph % (Auto) 29.6, [place] % (Auto) 5.7, Eos % (Auto) 1.0, Baso % (Auto) 0.4, Neut # (Auto) 5.0, Lymph # (Auto) 2.3, [place] # (Auto) 0.5, Eos # (Auto) 0.1, Baso # (Auto) 0.0 06/05/25 19:20 06/05/25 19:02 Orders (Tests/Meds): ED MEDICATIONS Discontinued Medications Generic Name Dose Route Start Last Admin Trade Name Freq PRN Reason Stop Dose Admin Lactated Ringer's 1,000 mls @ 999 mls/hr 06/05/25 19:02 06/05/25 19:52 Lactated Ringer's 1000 Ml Bag IV 06/05/25 20:02 0 mls/hr .Q1H1M ONE Infusion Ketorolac Tromethamine 15 mg 06/05/25 19:02 06/05/25 19:23 Ketorolac 15mg/Ml Vial IV 06/05/25 19:03 15 mg ONCE ONE Administration Prochlorperazine Edisylate 10 mg 06/05/25 19:02 06/05/25 19:23 Prochlorperazine 10mg/2ml Vial IV 06/05/25 19:03 10 mg ONCE ONE Administration ORDERS Category Date Time Status CBC w/Auto Diff [Complete Blood Count Auto Diff] Stat Lab 06/05/25 19:20 Completed CMP [Comprehensive Metabolic Panel] Stat Lab 06/05/25 19:02 Completed Serum [HCG Qualitative, Serum] Stat Lab 06/05/25 18:46 Completed UA [Urinalysis and Microscopic] Stat Lab 06/05/25 19:11 Completed Medical Decision Narrative: Hellen Todd is a 30F with a history of migraines, who presents to the emergency department for complaints of vaginal bleeding as well as a headache. Patient states that on Thursday, she had vaginal bleeding with blood clots. She states that her last period was 1 month prior. She states that she often has blood clots with her menstrual cycle, however these appeared somewhat different and she is concerned there may have been tissue in them. She took a test on Thursday while she was continuing to bleed and it was negative. She states that the bleeding has almost completely stopped. She was initially having abdominal cramping but that has resolved. She denies any fevers. She states that she developed a headache on Thursday, which she has had before and has been diagnosed with migraines. She states that it is typical of her migraine headaches. She describes as pain in her forehead. She has been taking Tylenol and ibuprofen without significant relief. On arrival, patient is hemodynamically stable, no acute distress, breathing comfortably on room air with oxygen saturation 96% SpO2. Afebrile. Physical exam, stated above, revealed overall well-appearing female in no distress. She is GCS 15. Nonfocal neurological exam. Abdomen soft, nontender nondistended. Cardiopulmonary exam is unremarkable. Patient showed me pictures on her phone of blood clots that she produced 3 days ago. She identified an area and 1 blood clot that she thought may represent tissue, however it is unclear based on the imaging provided but does appear to be more like a blood clot with mucus and no obvious parts are identified. Differential diagnosis includes, but is not limited to: Miscarriage, menstrual bleeding, dysmenorrhea, urinary tract infection, migraine headache, tension headache, among others. The most morbid conditions were considered and workup was based on these. Initial workup in the emergency room included: Serum test, CBC with differential, CMP, urinalysis, patient's headache was treated with 15 mg of IV Toradol after test resulted negative, 1 L lactated ringer, 10 mg IV Compazine. Given patient's negative test, I have low concern that this was a miscarriage and is likely blood clots secondary to her menstrual cycle given that she was supposed to start her menstrual cycle when the bleeding began. The remainder of patient's workup is grossly unremarkable nonactionable except for mildly low hemoglobin of 11.6 and hematocrit of 36.6. Upon seeing the lab work on the patient portal that her pricey test was negative, patient states that she would like to go home at this time. She does report she has had improvement in her headache with the treatment she received here. I do feel that her bleeding is likely related to her menstrual cycle. Return precautions were given. All questions were answered. She was then discharged from the emergency department in stable condition. Critical Care Critical Care Time Critical Care Time: No
[2025-06-05 19:15] LABS: HCG Qualitative, Serum Negative (Negative)
[2025-06-05 19:17] LABS: Microscopic, Urine URINE MICROSCOPIC (MICROSCOPIC)
[2025-06-05] MEDS: KETOROLAC 15MG/ML VIAL 15 MG IV (19:23)
[2025-06-05] MEDS: PROCHLORPERAZINE 10MG/2ML VIAL 10 MG IV (19:23)
[2025-06-05] MEDS: LACTATED RINGERS 1000ML 1,000 ML 999 ML IV (19:29)
[2025-06-05 19:40] LABS: Bilirubin,Urine Negative (Negative); Color,Urine YELLOW (Yellow); Glucose,Urine (UA) Negative (Negative); Ketones,Urine TRACE (Negative); Leukocyte Esterase,Urine Negative (Negative); PH,Urine 6.0 (5.0-8.5); Protein,Urine Negative (Negative); Specific Gravity, Urine 1.025 (1.005-1.030); Urobilinogen,Urine 0.2 EU/dl (0.2)
[2025-06-05 19:41] LABS: Alanine Aminotransferase 23 U/L (12-78); Albumin Level 4.3 g/dl (3.5-5.0); Albumin/Globulin Ratio 1.5 (1.1-1.8); Alkaline Phosphatase 87 U/L (38-126); Anion Gap 14.7 mEq/L (5-15); Aspartate Amino Transferase 32 U/L (14-36); Bilirubin,Total 0.6 mg/dl (0.2-1.3); Blood Urea Nitrogen 9 mg/dl (7-17); Calcium 9.2 mg/dl (8.4-10.2); Carbon Dioxide 24 mmol/L (22.0-30.0); Chloride 106 mmol/L (98-107); Creatinine Clearance Estimated 147 mL/min (50-200); Creatinine,Serum 0.90 mg/dl (0.52-1.04); Estimated Glomerular Filt Rate 74 ml/min (>60); GFR (African American) 89 ML/MIN (>60); Globulin 2.9 g/dL (1.3-3.2); Glucose 85 mg/dl (74-100); Potassium 3.7 mmoL/L (3.5-5.1); Sodium 141 mmol/L (136-145); Total Protein,Serum 7.2 g/dl (6.3-8.2)
[2025-06-05 19:45] LABS: Hematocrit 36.6 % (37.0-47.0); Hemoglobin 11.6 g/dL (12.2-16.2); Immature Granulocytes % 0.1 %; Mean Corpuscular HGB Conc 31.7 g/dL (31.8-35.4); Mean Corpuscular Hemoglobin 27.8 pg (27.0-31.2); Mean Corpuscular Volume 87.6 fl (81-99); Nucleated Red Blood Cells % 0 %; Platelet Count 343 K/mm3 (142-424); Red Blood Count 4.18 M/mm3 (4.20-5.40); Red Cell Distribution Width-SD 44.9 fL; White Blood Count 7.9 K/mm3 (4.8-10.8)
[2025-06-05 19:50] VITALS: BP 137/91; PULSE 97; RESP 20; TEMP 36.7; O2SAT 97
[2025-06-05 20:19] LABS: Bacteria,Urine Trace /lpf
[2025-06-05 20:20] LABS: Mucus,Urine 1+ /lpf
== END 2025-06-05 19:56 | disposition home or self-care (01) ==
PROVIDERS: Emergency Provider Student in an Organized Health Care Education/Training Program; PCP Nurse Practitioner Family
DX: G43.909 Migraine, unspecified, not intractable, without status migrainosus (principal)
CPT/HCPCS: 80053; 81001; 84703; 85025; 96361; 96374; 96375; 99284; J0780; J1885; J7120

== ENCOUNTER 2025-07-17 13:04 | Outpatient (CLI) | payer OTHER, SELFPAY | END 2025-07-17 23:59 | disposition home or self-care (01) | LOC: LAB 13:05 | PROVIDERS: PCP Nurse Practitioner Family; Visit Provider Nurse Practitioner Family | DX: N93.9 Abnormal uterine and vaginal bleeding, unspecified (principal) | CPT/HCPCS: 36415; 82670; 84144; 84402; 84403 ==

== ENCOUNTER 2025-08-21 14:19 | Outpatient (CLI) | payer OTHER, SELFPAY ==
--- OUTSIDE RECORDS SUMMARY | 2025-08-21 14:29 | XMS_ITS | Encounter Summary ---
Author Organization [employer] ([place], [place], [place], [place], [place]) Address [address] [place] [address] Care Team Providers Care Air Compressor Operator Name Role Phone Unavailable Primary Care Provider Unavailabl e Encounter Details Date Type Department Care Team (Late st Contact Info) Description 10/12/2019 Transcribed Document [facility] [place] Family Medicine [address] [place] [address] ProviderChip MD [address] [place] [address] Social History Tobacco Use Types [...] - Historical ProviderMD - 10/12/2019 3:20 PM INVENTORY TECHNICIAN UM Authorization Entered On: 10/12/2019 15:21 EST Performed On: 10/12/2019 15:20 EST by SALLY KAUR, Rubberizing Mechanic Primary Insurance Authorization Authorization and Policy Numbers : Insurance 1 Health Plan: [facility] Policy Number: [id number] Authorization Number: Insurance Primary Name : [facility] Policy Number: [id number] Authorization Status-Primary : Awaiting callback Auth/Referral Contact Name-Primary : [place] Authorized Service Begin Date-Primary : 10/11/2019 EST Historical Authorization Comments-Primary : Comment 1: per call from [facility] with [facility]. Denied as not meeting INPT. Will also fax us a denial letter with appeal info.P ph# [phone] (SALLY KAUR, Rubberizing Mechanic 10/12/2019 15:19) SALLY KAUR, Rubberizing Mechanic - 10/12/2019 15:20 EST Electronically signed by Barbara, [facility] Conversion Fibrous Plasterer Cerner at 12/17/2022 6:12 PM CDT documented in this encounter Plan of Treatment Not on file documented as of this encounter Visit Diagnoses Not on filedocumented in this encounter
--- OUTSIDE RECORDS SUMMARY | 2025-08-21 14:29 | XMS_ITS | Clinical Summary ---
Author Organization [employer] ([place], [place], [place], [place], [place]) Address [address] [place] [address] Care Team Providers Care Dressing Machine Operator Name Role Phone Unavailable Primary [...]
--- OUTSIDE RECORDS SUMMARY | 2025-08-21 14:29 | XMS_ITS | Encounter Summary ---
Author Organization [employer] ([place], [place], [place], [place], [place]) Address [address] [place] [address] Care Team Providers Care Powerhouse Electrician Apprentice Name Role Phone Unavailable Primary Care Provider Unavailabl e Encounter Details Date Type Department Care Team (Late st Contact Info) Description 10/12/2019 Transcribed Document [facility] [place] Family Medicine [address] [place] [address] ProviderChip MD [address] [place] [address] Social History Tobacco Use Types [...] - Historical ProviderMD - 10/12/2019 2:00 PM PHILOSOPHY AND RELIGION INSTRUCTOR UM Authorization Entered On: 10/12/2019 14:00 EST Performed On: 10/12/2019 14:00 EST by PAPO EDWARDS Rn-Utilization Review Primary Insurance Authorization Authorization and Policy Numbers : Insurance 1 Health Plan: [facility] Policy Number: [id number] Authorization Number: Insurance Primary Name : [facility] Policy Number: [id number] Authorization Status-Primary : Awaiting callback Auth/Referral Contact Name-Primary : DC Authorized Service Begin Date-Primary : 10/11/2019 EST Historical Authorization Comments-Primary : No Authorization Comments Found PAPO EDWARDS Rn-Utilization Review - 10/12/2019 14:00 EST Electronically signed by Barbara [facility] Conversion Sales Project Manager Cerner at 12/17/2022 6:29 PM CDT documented in this encounter Plan of Treatment Not on file documented as of this encounter Visit Diagnoses Not on filedocumented in this encounter
--- OUTSIDE RECORDS SUMMARY | 2025-08-21 14:29 | XMS_ITS | Encounter Summary ---
Author Organization [employer] ([place], [place], [place], [place], [place]) Address [address] [place] [address] Care Team Providers Care Personal Clothing Laundry Aide Name Role Phone Unavailable Primary Care Provider Unavailabl e Encounter Details Date Type Department Care Team (Late st Contact Info) Description 10/11/2019 Transcribed Document [facility] [place] [address] [place] [address] ProviderChip MD [address] [place] [address] Social History Tobacco Use Types [...] - Historical ProviderMD - 10/11/2019 7:03 AM SEWING MACHINE ADJUSTER Consult Phone Call Documentation Entered On: 10/11/2019 16:54 EST Performed On: 10/11/2019 7:03 EST by Urszula Zayas, Time Study ClerkHealth Unit Coord Phone Call for Consults Consult Phone Call/Page Attempt : First call Consult Reason : Lung Cavity? Provider Team Notified Name : Pulmonary medicine Consult, Additional Information : Call was answered and hung up upon Urszula Zayas, [facility] Unit Coord - 10/11/2019 16:54 EST documented in this encounter Plan of Treatment Not on file documented as of this encounter Visit Diagnoses Not on filedocumented in this encounter
--- OUTSIDE RECORDS SUMMARY | 2025-08-21 14:29 | XMS_ITS | Encounter Summary ---
Author Organization [employer] ([place], [place], [place], [place], [place]) Address [address] [place] [address] Care Team Providers Care Shipping And Receiving Weigher Name Role Phone Unavailable Primary Care Provider Unavailabl e Encounter Details Date Type Department Care Team (Late st Contact Info) Description 10/12/2019 Transcribed Document [facility] [place] Family Medicine [facility] [place] [address] ProviderChip MD [address] [place] [address] Social History Tobacco Use Types [...] - Chip ProviderMD - 10/12/2019 2:13 AM SINGLE NEEDLE OPERATOR DATE OF DISCHARGE: 10/11/2019 The patient left [...] lung. The patient was transferred to [facility] for Infectious Disease and Pulmonary consult. [...] Chart was reviewed. Time spent, 40 minutes. /[id number] MD AYUSH Lantigua/MILLY / AYUSH / DONNA /[id number] documented in this encounter Plan of Treatment Not on file documented as of this encounter Visit Diagnoses Not on filedocumented in this encounter
--- OUTSIDE RECORDS SUMMARY | 2025-08-21 14:29 | XMS_ITS | Encounter Summary ---
Author Organization [employer] ([place], [place], [place], [place], [place]) Address [address] [place] [address] Care Team Providers Care Cannery Tender Engineer Name Role Phone Unavailable Primary Care Provider Unavailabl e Encounter Details Date Type Department Care Team (Late st Contact Info) Description 10/12/[address] [facility] [place] Family Medicine [address] [place] [address] ProviderChip MD [address] [place] [address] Social History Tobacco Use Types [...] - Historical ProviderMD - 10/12/2019 3:19 PM SHOE DRESSER UM Authorization Entered On: 10/12/2019 15:20 EST Performed On: 10/12/2019 15:19 EST by SALLY KAUR, [employer] Primary Insurance Authorization Authorization and Policy Numbers : Insurance 1 Health Plan: [facility] Policy Number: [id number] Authorization Number: Insurance Primary Name : [facility] Policy Number: [id number] Authorization Status-Primary : Awaiting callback Auth/Referral Contact Name-Primary : [place] Authorized Service Begin Date-Primary : 10/11/2019 EST Authorization Comments-Primary : per call from [facility] with [facility] Denied as not meeting INPT. Will also fax us a denial letter with appeal info. [facility]# [phone] Historical Authorization Comments-Primary : No Authorization Comments Found SALLY KAUR, [employer] - 10/12/2019 15:19 EST Electronically signed by Barbara, [facility] Conversion Chief Revenue Officer Cerner at 12/17/2022 6:19 PM CDT documented in this encounter Plan of Treatment Not on file documented as of this encounter Visit Diagnoses Not on filedocumented in this encounter
--- OUTSIDE RECORDS SUMMARY | 2025-08-21 14:29 | XMS_ITS | Encounter Summary ---
Author Organization [employer] ([place], [place], [place], [place], [place]) Address [address] [place] [address] Care Team Providers Care Automotive Detailer Name Role Phone Unavailable Primary Care Provider Unavailabl e Encounter Details Date Type Department Care Team (Late st Contact Info) Description 10/12/2019 Transcribed Document [facility] [place] [address] [place] [address] ProviderChip MD [address] [place] [address] Social History Tobacco Use Types [...] - Historical ProviderMD - 10/12/2019 8:56 AM GEAR SHAPER UM Authorization Entered On: 10/12/2019 8:56 EST Performed On: 10/12/2019 8:56 EST by PAPO EDWARDS Rn-Utilization Review Primary Insurance Authorization Authorization and Policy Numbers : Insurance 1 Health Plan: [facility] Policy Number: [id number] Authorization Number: Insurance Primary Name : [facility] Policy Number: [id number] Historical Authorization Comments-Primary : No Authorization Comments Found PAPO EDWARDS Rn-Utilization Review - 10/12/2019 8:56 EST documented in this encounter Plan of Treatment Not on file documented as of this encounter Visit Diagnoses Not on filedocumented in this encounter
--- OUTSIDE RECORDS SUMMARY | 2025-08-21 14:30 | XMS_ITS | Encounter Summary ---
Author Organization [employer] ([place], [place], [place], [place], [place]) Address [address] [place] [address] Care Team Providers Care R D Intern Name Role Phone Unavailable Primary Care Provider Unavailabl e Encounter Details Date Type Department Care Team (Late st Contact Info) Description 10/18/2019 Transcribed Document [facility] [place] [address] [place] [address] ProviderChip MD [address] [place] [address] Social History Tobacco Use Types [...] - Historical ProviderMD - 10/18/2019 2:01 PM TUNNELING MACHINE OPERATOR UM Authorization Entered On: 10/18/2019 14:01 EST Performed On: 10/18/2019 14:01 EST by Kym Kim, Division Sergeant Primary Insurance Authorization Authorization and Policy Numbers : Insurance 1 Health Plan: [facility] Policy Number: [id number] Authorization Number: Insurance Primary Name : [facility] Policy Number: [id number] Authorization Status-Primary : Denial - admission Auth/Referral [...] letter with appeal info.[facility]# [phone] (SALLY KAUR, Superintendent Custodian Janitor 10/12/2019 15:19) Kym Kim, Division Sergeant - 10/18/2019 14:01 EST Electronically signed by Barbara [facility] Conversion University Administrator Cerner at 12/17/2022 6:23 PM CDT documented in this encounter Plan of Treatment Not on file documented as of this encounter Visit Diagnoses Not on filedocumented in this encounter
--- OUTSIDE RECORDS SUMMARY | 2025-08-21 14:30 | XMS_ITS | Encounter Summary ---
Author Organization [employer] ([place], [place], [place], [place], [place]) Address [address] [place] [address] Care Team Providers Care Commercial Construction Superintendent Name Role Phone Unavailable Primary Care Provider Unavailabl e Encounter Details Date Type Department Care Team (Late st Contact Info) Description 10/24/2019 Transcribed Document [facility] [place] [facility] [place] [address] ProviderChip MD [address] [place] [address] Social History Tobacco Use Types [...] - Historical ProviderMD - 10/24/2019 11:34 AM RESIDENCE DIRECTOR UM Authorization Entered On: 10/24/2019 11:34 EST Performed On: 10/24/2019 11:34 EST by CONSUELO JAMES RN Primary Insurance Authorization Authorization and Policy Numbers : Insurance 1 Health Plan: [facility] Policy Number: [id number] Authorization Number: Insurance Primary Name : [facility] Policy Number: [id number] Authorization Status-Primary : Denial - admission Auth/Referral Contact Name-Primary : DC + Authorized Service Begin Date-Primary : 10/11/2019 EST Authorization Comments-Primary : Email sent again to GRETCHEN/DF/DANIELA for obs. Historical Authorization Comments-Primary : Comment 1: Emailed denial letter, p2p form, and MCG to RD/[facility]ASH[facility] (CONSUELO JAMES RN 10/13/2019 10:03) Comment 2: per call from [facility] with [facility]. Denied as not meeting INPT. Will also fax us a denial letter with appeal info.[facility]# [phone] (SALLY KAUR, Head Boys Tennis Coach 10/12/2019 15:19) CONSUELO JAMES RN - 10/24/2019 11:34 EST Electronically signed by Barbara, [facility] Conversion Topography Technician Cerner at 12/17/2022 6:25 PM CDT documented in this encounter Plan of Treatment Not on file documented as of this encounter Visit Diagnoses Not on filedocumented in this encounter
--- OUTSIDE RECORDS SUMMARY | 2025-08-21 14:30 | XMS_ITS | Encounter Summary ---
Author Organization [employer] ([place], [place], [place], [place], [place]) Address [address] [place] [address] Care Team Providers Care Computer Operations Supervisor Name Role Phone Unavailable Primary Care Provider Unavailabl e Encounter Details Date Type Department Care Team (Late st Contact Info) Description 10/12/2019 Transcribed Document [facility] [address] [place] [address] ProviderChip MD [address] [place] [address] Social History Tobacco Use Types [...] - Historical ProviderMD - 10/12/2019 1:58 PM PHARMACY TECH CUSTOMER SERVICE UM Authorization Entered On: 10/12/2019 13:58 EST Performed On: 10/12/2019 13:58 EST by Kym Kim Coping Machine Assembler Primary Insurance Authorization Authorization and Policy Numbers : Insurance 1 Health Plan: [facility] Policy Number: [id number] Authorization Number: Insurance Primary Name : [facility] Policy Number: [id number] Auth/Referral Contact Name-Primary : [place] Historical Authorization Comments-Primary : No Authorization Comments Found Kym Kim, Coping Machine Assembler - 10/12/2019 13:58 EST Electronically signed by Barbara [facility] Conversion Monkey Trainer Cerner at 12/17/2022 6:10 PM CDT documented in this encounter Plan of Treatment Not on file documented as of this encounter Visit Diagnoses Not on filedocumented in this encounter
--- OUTSIDE RECORDS SUMMARY | 2025-08-21 14:30 | XMS_ITS | Encounter Summary ---
Author Organization [employer] ([place], [place], [place], [place], [place]) Address [address] [place] [address] Care Team Providers Care Flake Miller Wheat And Oats Name Role Phone Unavailable Primary Care Provider Unavailabl e Encounter Details Date Type Department Care Team (Late st Contact Info) Description 10/11/2019 Transcribed Document [facility] [place] [address] [place] [address] ProviderChip MD [address] [place] [address] Social History Tobacco Use Types [...] - Historical ProviderMD - 10/11/2019 10:00 AM TAPPER HELPER Consult Phone Call Documentation Entered On: 10/11/2019 17:58 EST Performed On: 10/11/2019 10:00 EST by Urszula Zayas, Scrap Hoist Operator-Health Unit Coord Phone Call for Consults Consult Phone Call/Page Attempt : Second call Consult Reason : PNA Consult, Additional Information : Dr. Pollard instructional technology coordinator Urszula Zayas, Scrap Hoist Operator-Health Unit Coord - 10/11/2019 17:58 EST documented in this encounter Plan of Treatment Not on file documented as of this encounter Visit Diagnoses Not on filedocumented in this encounter
--- OUTSIDE RECORDS SUMMARY | 2025-08-21 14:30 | XMS_ITS | Referral Summary ---
Author Organization [employer] ([place], [place], [place], [place], [place]) Address [address] [place] [address] Care Team Providers Care Bladder Trimmer Name Role Phone Unavailable Primary Care Provider [...]
--- OUTSIDE RECORDS SUMMARY | 2025-08-21 14:30 | XMS_ITS | Encounter Summary ---
Author Organization [employer] ([place], [place], [place], [place], [place]) Address [address] [place] [address] Care Team Providers Care Generator Man Name Role Phone Unavailable Primary Care Provider Unavailabl e Encounter Details Date Type Department Care Team (Late st Contact Info) Description 10/13/2019 Transcribed Document [facility] [place] Family Medicine [address] [place] [address] ProviderChip MD [address] [place] [address] Social History Tobacco Use Types [...] - Historical ProviderMD - 10/13/2019 10:03 AM BROADCAST MAINTENANCE ENGINEER UM Authorization Entered On: 10/13/2019 10:03 EST Performed On: 10/13/2019 10:03 EST by CONSUELO JAMES RN Primary Insurance Authorization Authorization and Policy Numbers : Insurance 1 Health Plan: [facility] Policy Number: [id number] Authorization Number: Insurance Primary Name : [facility] Policy Number: [id number] Authorization Status-Primary : Denial - admission Auth/Referral Contact Name-Primary : [place] Authorized Service Begin Date-Primary : 10/11/2019 EST Authorization Comments-Primary : Emailed denial letter, p2p form, and MCG to RD/[facility] Historical Authorization Comments-Primary : Comment 1: per call from [facility] with [facility]. Denied as not meeting INPT. Will also fax us a denial letter with appeal info.[facility] ph# [phone] (SALLY KAUR, Pain Management Specialist 10/12/2019 15:19) CONSUELO JAMES RN - 10/13/2019 10:03 EST documented in this encounter Plan of Treatment Not on file documented as of this encounter Visit Diagnoses Not on filedocumented in this encounter
--- OUTSIDE RECORDS SUMMARY | 2025-08-21 14:30 | XMS_ITS | Encounter Summary ---
Author Organization [employer] ([place], [place], [place], [place], [place]) Address [address] [place] [address] Care Team Providers Care Cocoa Room Operator Name Role Phone Unavailable Primary Care Provider Unavailabl e Encounter Details Date Type Department Care Team (Late st Contact Info) Description 10/11/2019 Transcribed Document [facility] [place] Family Medicine [address] [place] [address] ProviderChip MD [address] [place] [address] Social History Tobacco Use Types [...] - Historical Provider, - 10/11/2019 3:11 PM LIVESTOCK HAULIER Admission History, Adult Entered On: 10/11/2019 17:00 [...] on Unit : Stretcher Legal Guardian : hospital tray service worker Legal Guardian : No Support Person/Patient Transplant Immunologist : No Contact Password : 1111 Want Family/Rep/Phys Notified of Admit : No Emergency Contact #1 : Yuriy Lewis Emergency Contact #1 Emergency Contact #1 Relationship : Emergency Contact #2 : Yuriy Lewis Emergency Contact #2 Emergency Contact #2 Relationship : Primary Language : Kazakh Preferred Communication Mode : Verbal Communication Barrier [...] Scale Risk Level : 0-24 Low Risk [place] Fall Interventions : Adequate lighting, Assistive devices [...] Source : Stated Height Entry Format : [place] Height, Feet : 5 ft(Converted to: 152 [...] Body Mass Index : 25.4 kg/m2 (HI) [place] Body Weight : 50 kg Bay Lyons [...] Bay Lyons RN - 10/11/2019 19:12 EST [place] Suicide Severity Rating Scale (C-SSRS) CSSRS Past [...] Items : Other: Purse and cell phone refinery operator vapor recovery unit Comfort Items Disposition : Bedside, Declines to [...]
--- OUTSIDE RECORDS SUMMARY | 2025-08-21 14:30 | XMS_ITS | Patient Health Record ---
Author Organization [facility] Address [address] [place] [address] Care Team Providers Care Vault Person Name Role Phone Rosa Enriquez Primary Care Provider Allergies Allergen (clinical drug ingredient) Drug/Non Drug Allergy documented on EMR Reaction Allergy Type Onset Date Status amoxicillin Amoxicillin Unknown Drug Allergy Act jalil Penicillin Unknown Drug Allergy Active Reason For Referral No Information Problems Problem Type SNOMED Code ICD Code Onset Dates Problem Status W/U Status Risk Notes Problem Alcohol dependence (61260966) Uncomplicated alcohol dependence (F10.20) Active confirmed Problem Opioid dependence (90284418) Uncomplicated opioid dependence (F11.20) Active confirmed Plan Of Treatment No Information Insurance Providers Payer Name Payer Address Payer Phone Subscriber Number Group Number Insured Name Patient Relationship to Insured Coverage Start Date Coverage End Date [facility] Medicaid [address] [address] [place] [address] [id number] Hellen Todd Self - patient is the insured 2 Medical (General) History Medical History History ICD Code hypertension anxiety depression Surgical History Surgery Date(Month/Year) Section kidney stone surgery Hospitalization History Reason Date(Month/Year) childbirth
--- OUTSIDE RECORDS SUMMARY | 2025-08-21 14:30 | XMS_ITS | Encounter Summary ---
Author Organization [employer] ([place], [place], [place], [place], [place]) Address [address] [place] [address] Care Team Providers Care Engine Repair Supervisor Name Role Phone Unavailable Primary Care Provider Unavailabl e Encounter Details Date Type Department Care Team (Late st Contact Info) Description 10/24/2019 Transcribed Document [facility] [place] Family Medicine [address] [place] [address] ProviderChip MD [address] [place] [address] Social History Tobacco Use Types [...] Cerner Conversion Note - Chip ProviderMD - 10/24/2019 1:05 PM CAN PUSHER UM Authorization Entered On: 10/24/2019 13:05 EST Performed On: 10/24/2019 13:05 EST by CONSUELO JAMES RN Primary Insurance Authorization Authorization and Policy Numbers : Insurance 1 Health Plan: [facility] Policy Number: [id number] Authorization Number: Insurance Primary Name : [facility] Policy Number: [id number] Authorization Status-Primary : Denial - admission Auth/Referral [...] a denial letter with appeal info.[facility] ph# [phone] (SALLY KAUR, Regional Planner 10/12/2019 15:19) CONSUELO JAMES RN - 10/24/2019 13:05 EST Electronically signed by Barbara [facility] Conversion Tape Librarian Cerner at 12/17/2022 6:34 PM CDT documented in this encounter Plan of Treatment Not on file documented as of this encounter Visit Diagnoses Not on filedocumented in this encounter
--- OUTSIDE RECORDS SUMMARY | 2025-08-21 14:30 | XMS_ITS | Encounter Summary ---
Author Organization [employer] ([place], [place], [place], [place], [place]) Address [address] [place] [address] Care Team Providers Care Duct Layer Supervisor Name Role Phone Unavailable Primary Care Provider Unavailabl e Encounter Details Date Type Department Care Team (Late st Contact Info) Description 10/11/2019 Transcribed Document [facility] [place] Medicine [facility] [place] [address] ProviderChip MD [address] [place] [address] Social History Tobacco Use Types [...] - Historical ProviderMD - 10/11/2019 5:33 PM PHYSIOTHERAPY ASSISTANT DATE OF ADMISSION: 10/11/2019 PRIMARY CARE PHYSICIAN: [...] was abnormal. The patient was transferred to [facility] for infectious disease and pulmonary evaluation. [...] was reviewed. Critical time spent, 55 minutes. /[id number] MD AYUSH Lantigua/MILLY / AYUSH / DONNA documented in this encounter Plan of Treatment Not on file documented as of this encounter Visit Diagnoses Not on filedocumented in this encounter
== END 2025-08-21 23:59 | disposition home or self-care (01) ==
LOC: LAB 14:21
PROVIDERS: PCP Nurse Practitioner Family; Visit Provider Nurse Practitioner Obstetrics & Gynecology
DX: N92.6 Irregular menstruation, unspecified (principal)
CPT/HCPCS: 36415; 84144; 84702

== ENCOUNTER 2025-08-30 13:33 | Outpatient (CLI) | payer OTHER, SELFPAY ==
--- OUTSIDE RECORDS SUMMARY | 2025-08-30 13:37 | XMS_ITS | Encounter Summary ---
Author Organization [employer] ([place], [place], [place], [place], [place]) Address [address] [place] [address] Care Team Providers Care Field Reviewer Name Role Phone Unavailable Primary Care Provider Unavailabl e Encounter Details Date Type Department Care Team (Late st Contact Info) Description 10/12/2019 Transcribed Document [facility] [place] [address] [place] [address] ProviderChip MD [address] [place] [address] Social History Tobacco Use Types [...] - Historical ProviderMD - 10/12/2019 2:00 PM GRINDER SETUP OPERATOR UM Authorization Entered On: 10/12/2019 14:00 EST Performed On: 10/12/2019 14:00 EST by PAPO EDWARDS Rn-Utilization Review Primary Insurance Authorization Authorization and Policy Numbers : Insurance 1 Health Plan: [facility] Policy Number: [id number] Authorization Number: Insurance Primary Name : [facility] Policy Number: [id number] Authorization Status-Primary : Awaiting callback Auth/Referral Contact Name-Primary : [place] Authorized Service Begin Date-Primary : 10/11/2019 EST Historical Authorization Comments-Primary : No Authorization Comments Found [employer] EDWARDS Rn-Utilization Review - 10/12/2019 14:00 EST Electronically signed by Barbara [facility] Conversion Cloth Printing Inspector Cermarc at 12/17/2022 6:29 PM CDT documented in this encounter Plan of Treatment Not on file documented as of this encounter Visit Diagnoses Not on filedocumented in this encounter
--- OUTSIDE RECORDS SUMMARY | 2025-08-30 13:37 | XMS_ITS | Encounter Summary ---
Author Organization [employer] ([place], [place], [place], [place], [place]) Address [address] [place] [address] Care Team Providers Care Tray Worker Name Role Phone Unavailable Primary Care Provider Unavailabl e Encounter Details Date Type Department Care Team (Late st Contact Info) Description 10/13/2019 Transcribed Document [facility] [place] [address] [place] [address] ProviderChip MD [address] [place] [address] Social History Tobacco Use Types [...] - Historical ProviderMD - 10/13/2019 10:03 AM ADOBE LAYER HELPER UM Authorization Entered On: 10/13/2019 10:03 EST Performed On: 10/13/2019 10:03 EST by CONSUELO JAMES RN Primary Insurance Authorization Authorization and Policy Numbers : Insurance 1 Health Plan: [facility] Policy Number: [id number] Authorization Number: Insurance Primary Name : [facility] Policy Number: [id number] Authorization Status-Primary : Denial - admission Auth/Referral Contact Name-Primary : [place] Authorized Service Begin Date-Primary : 10/11/2019 EST Authorization Comments-Primary : Emailed denial letter, p2p form, and MCG to [facility] Historical Authorization Comments-Primary : Comment 1: per call from [facility] with [facility]. Denied as not meeting INPT. Will also fax us a denial letter with appeal info.[facility] ph# [phone] (SALLY KAUR, Pin Pusher 10/12/2019 15:19) CONSUELO JAMES RN - 10/13/2019 10:03 EST documented in this encounter Plan of Treatment Not on file documented as of this encounter Visit Diagnoses Not on filedocumented in this encounter
--- OUTSIDE RECORDS SUMMARY | 2025-08-30 13:37 | XMS_ITS | Encounter Summary ---
Author Organization [employer] ([place], [place], [place], [place], [place]) Address [address] [place] [address] Care Team Providers Care Staffing Branch Manager Name Role Phone Unavailable Primary Care Provider Unavailabl e Encounter Details Date Type Department Care Team (Late st Contact Info) Description 10/18/2019 Transcribed Document [facility] [place] [address] [place] [address] ProviderChip MD [address] [place] [address] Social History Tobacco Use Types [...] - Historical ProviderMD - 10/18/2019 2:01 PM FIBER OPTICS SUPERVISOR UM Authorization Entered On: 10/18/2019 14:01 EST Performed On: 10/18/2019 14:01 EST by Kym Kim, Supervisor Ore Dressing Primary Insurance Authorization Authorization and Policy Numbers : Insurance 1 Health Plan: [facility] Policy Number: [id number] Authorization Number: Insurance Primary Name : [facility] Policy Number: [id number] Authorization Status-Primary : Denial - admission Auth/Referral Contact Name-Primary : DC + Authorized Service Begin Date-Primary : 10/11/2019 EST Historical Authorization Comments-Primary : Comment 1: Emailed denial letter, p2p form, and MCG to RD/[facility] (CONSUELO JAMES RN 10/13/2019 10:03) Comment 2: per call from [facility] with [facility]. Denied as not meeting INPT. Will also fax us a denial letter with appeal info.[facility]# [phone] (SALLY KAUR, Logistics Operations Director 10/12/2019 15:19) Kym Kim, Supervisor Ore Dressing - 10/18/2019 14:01 EST Electronically signed by Barbara [facility] Conversion Modern Dancer Cerner at 12/17/2022 6:23 PM CDT documented in this encounter Plan of Treatment Not on file documented as of this encounter Visit Diagnoses Not on filedocumented in this encounter
--- OUTSIDE RECORDS SUMMARY | 2025-08-30 13:37 | XMS_ITS | Encounter Summary ---
Author Organization [employer] ([place], [place], [place], [place], [place]) Address [address] [place] [address] Care Team Providers Care Supreme Court Justice Name Role Phone Unavailable Primary Care Provider Unavailabl e Encounter Details Date Type Department Care Team (Late st Contact Info) Description 10/11/2019 Transcribed Document [facility] [place] [address] [place] [address] ProviderChip MD [address] [place] [address] Social History Tobacco Use Types [...] - Historical Provider, - 10/11/2019 3:11 PM INTERNET MANAGER Admission History, Adult Entered On: 10/11/2019 17:00 [...] on Unit : Stretcher Legal Guardian : application security architect Legal Guardian : No Support Person/Patient Filling Hauler Weaving : No Contact Password : 1111 Want Family/Rep/Phys Notified of Admit : No Emergency Contact #1 : Yuriy Lewis Emergency Contact #1 Emergency Contact #1 Relationship : Emergency Contact #2 : Yuriy Lewis Emergency Contact #2 Emergency Contact #2 Relationship : Primary Language : Arabic Preferred Communication Mode : Verbal Communication Barrier [...] Scale Risk Level : 0-24 Low Risk [place] Fall Interventions : Adequate lighting, Assistive devices [...] Source : Stated Height Entry Format : Grainger Height, Feet : 5 ft(Converted to: 152 [...] Body Mass Index : 25.4 kg/m2 (HI) [place] Body Weight : 50 kg Bay Lyons [...] Bay Lyons RN - 10/11/2019 19:12 EST [place] Suicide Severity Rating Scale (C-SSRS) CSSRS Past [...] Items : Other: Purse and cell phone grain oilseed or pasture farm manager Comfort Items Disposition : Bedside, Declines to send to security/safe Jewelry : Bracelet, Ring Jewelry Disposition : With patient, Declines to send to security/safe Personal Items : Cell phone Personal Items Disposition : Bedside Bay Lyons RN - 10/11/2019 19:12 EST Electronically signed by Frieda Jimenez Conversion Warehouse And Receiving Supervisor Cerner at 12/17/2022 6:13 PM CDT documented in this encounter Plan of Treatment Not on file documented as of this encounter Visit Diagnoses Not on filedocumented in this encounter
--- OUTSIDE RECORDS SUMMARY | 2025-08-30 13:37 | XMS_ITS | Encounter Summary ---
Author Organization [employer] ([place], [place], [place], [place], [place]) Address [address] [place] [address] Care Team Providers Care Director Microbiology Name Role Phone Unavailable Primary Care Provider Unavailabl e Encounter Details Date Type Department Care Team (Late st Contact Info) Description 10/12/2019 Transcribed Document [facility] [place] [facility] [place] [address] ProviderChip MD [address] [place] [address] Social History Tobacco Use Types [...] - Chip ProviderMD - 10/12/2019 2:13 AM TRANSMISSION BUILDER DATE OF DISCHARGE: 10/11/2019 The patient left [...] the lung. The patient was [facility] to [facility] for Infectious Disease and Pulmonary consult. [...] Chart was reviewed. Time spent, 40 minutes. /[id number] MD AYUSH Lantigua/MILLY / AYUSH / DONNA /[id number] Electronically signed by Barbara, [facility] Conversion Pocketed Spring Assembler Cerner at 12/17/2022 6:11 PM CDT documented in this encounter Plan of Treatment Not on file documented as of this encounter Visit Diagnoses Not on filedocumented in this encounter
--- OUTSIDE RECORDS SUMMARY | 2025-08-30 13:37 | XMS_ITS | Encounter Summary ---
Author Organization [employer] ([place], [place], [place], [place], [place]) Address [address] [place] [address] Care Team Providers Care Dental Office Coordinator Name Role Phone Unavailable Primary Care Provider Unavailabl e Encounter Details Date Type Department Care Team (Late st Contact Info) Description 10/12/2019 Transcribed Document [facility] [place] [address] [place] [address] ProviderChip MD [address] [place] [address] Social History Tobacco Use Types [...] - Historical ProviderMD - 10/12/2019 3:20 PM SPEECH THERAPY ASSISTANT UM Authorization Entered On: 10/12/2019 15:21 EST Performed On: 10/12/2019 15:20 EST by SALLY KAUR, Grading Machine Feeder Primary Insurance Authorization Authorization and Policy Numbers : Insurance 1 Health Plan: [facility] Policy Number: [id number] Authorization Number: Insurance Primary Name : [facility] Policy Number: [id number] Authorization Status-Primary : Awaiting callback Auth/Referral Contact Name-Primary : [place] Authorized Service Begin Date-Primary : 10/11/2019 EST Historical Authorization Comments-Primary : Comment 1: per call from [facility] with [facility]. Denied as not meeting INPT. Will also fax us a denial letter with appeal info.P ph# [phone] (SALLY KAUR, Grading Machine Feeder 10/12/2019 15:19) SALLY KAUR, Grading Machine Feeder - 10/12/2019 15:20 EST Electronically signed by Barbara, [facility] Conversion Dye Range Feeder Cerner at 12/17/2022 6:12 PM CDT documented in this encounter Plan of Treatment Not on file documented as of this encounter Visit Diagnoses Not on filedocumented in this encounter
--- OUTSIDE RECORDS SUMMARY | 2025-08-30 13:37 | XMS_ITS | Encounter Summary ---
Author Organization [employer] ([place], [place], [place], [place], [place]) Address [address] [place] [address] Care Team Providers Care Help Desk Supervisor Name Role Phone Unavailable Primary Care Provider Unavailabl e Encounter Details Date Type Department Care Team (Late st Contact Info) Description 10/12/2019 Transcribed Document [facility] [place] [address] [place] [address] ProviderChip MD [address] [place] [address] Social History Tobacco Use Types [...] - Historical ProviderMD - 10/12/2019 3:19 PM SITE PLANNER UM Authorization Entered On: 10/12/2019 15:20 EST Performed On: 10/12/2019 15:19 EST by SALLY KAUR, Member Of Congress Primary Insurance Authorization Authorization and Policy Numbers : Insurance 1 Health Plan: [facility] Policy Number: [id number] Authorization Number: Insurance Primary Name : [facility] Policy Number: [id number] Authorization Status-Primary : Awaiting callback Auth/Referral Contact Name-Primary : [place] Authorized Service Begin Date-Primary : 10/11/2019 EST Authorization Comments-Primary : per call from [facility] with [facility] Denied as not meeting INPT. Will also fax us a denial letter with appeal info. [facility]# [phone] Historical Authorization Comments-Primary : No Authorization Comments Found SALLY KAUR, Member Of Congress - 10/12/2019 15:19 EST Electronically signed by Barbara, [facility] Conversion Call Center Support Representative Cerner at 12/17/2022 6:19 PM CDT documented in this encounter Plan of Treatment Not on file documented as of this encounter Visit Diagnoses Not on filedocumented in this encounter
--- OUTSIDE RECORDS SUMMARY | 2025-08-30 13:37 | XMS_ITS | Encounter Summary ---
Author Organization [employer] ([place], [place], [place], [place], [place]) Address [address] [place] [address] Care Team Providers Care Electron Microprobe Operator Name Role Phone Unavailable Primary Care Provider Unavailabl e Encounter Details Date Type Department Care Team (Late st Contact Info) Description 10/11/2019 Transcribed Document [facility] [place] [address] [place] [address] ProviderChip MD [address] [place] [address] Social History Tobacco Use Types [...] - Historical ProviderMD - 10/11/2019 7:03 AM PHOTOGRAPH DEVELOPER Consult Phone Call Documentation Entered On: 10/11/2019 16:54 EST Performed On: 10/11/2019 7:03 EST by Urszula Zayas, Health CompanionHealth Unit Coord Phone Call for Consults Consult Phone Call/Page Attempt : First call Consult Reason : Lung Cavity? Provider Team Notified Name : Pulmonary medicine Consult, Additional Information : Call was answered and hung up upon Urszula Zayas, [facility] - 10/11/2019 16:54 EST documented in this encounter Plan of Treatment Not on file documented as of this encounter Visit Diagnoses Not on filedocumented in this encounter
--- OUTSIDE RECORDS SUMMARY | 2025-08-30 13:37 | XMS_ITS | Clinical Summary ---
Author Organization [employer] ([place], [place], [place], [place], [place]) Address [address] [place] [address] Care Team Providers Care Blister Rust Eradicator Name Role Phone Unavailable Primary Care Provider [...]
--- OUTSIDE RECORDS SUMMARY | 2025-08-30 13:37 | XMS_ITS | Encounter Summary ---
Author Organization [employer] ([place], [place], [place], [place], [place]) Address [address] [place] [address] Care Team Providers Care Needle Bar Molder Name Role Phone Unavailable Primary Care Provider Unavailabl e Encounter Details Date Type Department Care Team (Late st Contact Info) Description 10/12/[address] [facility] [place] [address] [place] [address] ProviderChip MD [address] [place] [address] Social History Tobacco Use Types [...] - Historical ProviderMD - 10/12/2019 8:56 AM TIP STITCHER UM Authorization Entered On: 10/12/2019 8:56 EST Performed On: 10/12/2019 8:56 EST by PAPO EDWARDS Rn-Utilization Review Primary Insurance Authorization Authorization and Policy Numbers : Insurance 1 Health Plan: [facility] Policy Number: [id number] Authorization Number: Insurance Primary Name : [facility] Policy Number: [id number] Historical Authorization Comments-Primary : No Authorization Comments Found [employer] EDWARDS Rn-Utilization Review - 10/12/2019 8:56 EST documented in this encounter Plan of Treatment Not on file documented as of this encounter Visit Diagnoses Not on filedocumented in this encounter
--- OUTSIDE RECORDS SUMMARY | 2025-08-30 13:38 | XMS_ITS | Referral Summary ---
Author Organization [employer] ([place], [place], [place], [place], [place]) Address [address] [place] [address] Care Team Providers Care Bus Starter Name Role Phone Unavailable Primary Care Provider [...]
--- OUTSIDE RECORDS SUMMARY | 2025-08-30 13:38 | XMS_ITS | Encounter Summary ---
Author Organization [employer] ([place], [place], [place], [place], [place]) Address [address] [place] [address] Care Team Providers Care Abalone Fisherman Name Role Phone Unavailable Primary Care Provider Unavailabl e Encounter Details Date Type Department Care Team (Late st Contact Info) Description 10/11/2019 Transcribed Document [facility] [place] [facility] [place] [address] ProviderChip MD [address] [place] [address] Social History Tobacco Use Types [...] - Historical ProviderMD - 10/11/2019 5:33 PM BATHHOUSE KEEPER DATE OF ADMISSION: 10/11/2019 PRIMARY CARE PHYSICIAN: [...] was abnormal. The patient was transferred to [facility] for infectious disease and pulmonary evaluation. [...] was reviewed. Critical time spent, 55 minutes. /[id number] MD AYUSH Lantigua/MILLY / AYUSH / DONNA documented in this encounter Plan of Treatment Not on file documented as of this encounter Visit Diagnoses Not on filedocumented in this encounter
--- OUTSIDE RECORDS SUMMARY | 2025-08-30 13:38 | XMS_ITS | Encounter Summary ---
Author Organization [employer] ([place], [place], [place]) Address [address] [place] [address] Care Team Providers Care Varnish Maker Helper Name Role Phone Unavailable Primary Care Provider Unavailabl e Encounter Details Date Type Department Care Team (Late st Contact Info) Description 10/24/2019 Transcribed Document [facility] [place] [facility] [place] [address] ProviderChip MD [address] [place] [address] Social History Tobacco Use Types [...] - Historical ProviderMD - 10/24/2019 11:34 AM HEAD MECHANIC UM Authorization Entered On: 10/24/2019 11:34 EST Performed On: 10/24/2019 11:34 EST by CONSUELO JAMES RN Primary Insurance Authorization Authorization and Policy Numbers : Insurance 1 Health Plan: [facility] Policy Number: [id number] Authorization Number: Insurance Primary Name : [facility] Policy Number: [id number] Authorization Status-Primary : Denial - admission Auth/Referral [...] us a denial letter with appeal info.[facility]# [phone] (SALLY KAUR, Power Press Tender 10/12/2019 15:19) CONSUELO JAMES RN - 10/24/2019 11:34 EST Electronically signed by Barbara, [facility] Conversion Housekeeper Manager Cerner at 12/17/2022 6:25 PM CDT documented in this encounter Plan of Treatment Not on file documented as of this encounter Visit Diagnoses Not on filedocumented in this encounter
--- OUTSIDE RECORDS SUMMARY | 2025-08-30 13:38 | XMS_ITS | Encounter Summary ---
Author Organization [employer] ([place], [place], [place], [place], [place]) Address [address] [place] [address] Care Team Providers Care Rheumatology Nurse Name Role Phone Unavailable Primary Care Provider Unavailabl e Encounter Details Date Type Department Care Team (Late st Contact Info) Description 10/12/2019 Transcribed Document [facility] [place] [address] [place] [address] ProviderChip MD [address] [place] [address] Social History Tobacco Use Types [...] - Historical ProviderMD - 10/12/2019 1:58 PM CANAL EQUIPMENT MECHANIC UM Authorization Entered On: 10/12/2019 13:58 EST Performed On: 10/12/2019 13:58 EST by Kym Kim Career Development Coordinator Primary Insurance Authorization Authorization and Policy Numbers : Insurance 1 Health Plan: [facility] Policy Number: [id number] Authorization Number: Insurance Primary Name : [facility] Policy Number: [id number] Auth/Referral Contact Name-Primary : [place] Historical Authorization Comments-Primary : No Authorization Comments Found Kym Kim, Career Development Coordinator - 10/12/2019 13:58 EST Electronically signed by Barbara [facility] Conversion Supervisor Respiratory Cerner at 12/17/2022 6:10 PM CDT documented in this encounter Plan of Treatment Not on file documented as of this encounter Visit Diagnoses Not on filedocumented in this encounter
--- OUTSIDE RECORDS SUMMARY | 2025-08-30 13:38 | XMS_ITS | Encounter Summary ---
Author Organization [employer] ([place], [place], [place], [place], [place]) Address [address] [place] [address] Care Team Providers Care Grain Elevator Worker Name Role Phone Unavailable Primary Care Provider Unavailabl e Encounter Details Date Type Department Care Team (Late st Contact Info) Description 10/24/2019 Transcribed Document [facility] [place] [address] [place] [address] ProviderChip MD [address] [place] [address] Social History Tobacco Use [...] - Chip ProviderMD - 10/24/2019 1:05 PM MUNITIONS WORKER UM Authorization Entered On: 10/24/2019 13:05 EST Performed On: 10/24/2019 13:05 EST by CONSUELO JAMES RN Primary Insurance Authorization Authorization and Policy Numbers : Insurance 1 Health Plan: [facility] Policy Number: [id number] Authorization Number: Insurance Primary Name : [facility] Policy Number: [id number] Authorization Status-Primary : Denial - admission Auth/Referral [...] a denial letter with appeal info.[facility] ph# [phone] (SALLY KAUR, Television Technician 10/12/2019 15:19) CONSUELO JAMES RN - 10/24/2019 13:05 EST documented in this encounter Plan of Treatment Not on file documented as of this encounter Visit Diagnoses Not on filedocumented in this encounter
--- OUTSIDE RECORDS SUMMARY | 2025-08-30 13:38 | XMS_ITS | Encounter Summary ---
Author Organization [employer] ([place], [place], [place], [place], [place]) Address [address] [place] [address] Care Team Providers Care Vegetable Tier Name Role Phone Unavailable Primary Care Provider Unavailabl e Encounter Details Date Type Department Care Team (Late st Contact Info) Description 10/11/2019 Transcribed Document [facility] [place] [address] [place] [address] ProviderChip MD [address] [place] [address] Social History Tobacco Use Types [...] - Historical ProviderMD - 10/11/2019 10:00 AM CEMENT LOADER Consult Phone Call Documentation Entered On: 10/11/2019 17:58 EST Performed On: 10/11/2019 10:00 EST by Urszula Zayas, Kosher Dietary Service Supervisor-Health Unit Coord Phone Call for Consults Consult Phone Call/Page Attempt : Second call Consult Reason : PNA Consult, Additional Information : Dr. Pollard hr receptionist Urszula Zayas, Kosher Dietary Service Supervisor-Health Unit Coord - 10/11/2019 17:58 EST documented in this encounter Plan of Treatment Not on file documented as of this encounter Visit Diagnoses Not on filedocumented in this encounter
[2025-08-30 15:34] LABS: Vitamin B12 679 pg/mL (239-931)
== END 2025-08-30 23:59 | disposition home or self-care (01) ==
LOC: LAB 13:34
PROVIDERS: PCP Nurse Practitioner Family; Visit Provider Nurse Practitioner Family
DX: F41.9 Anxiety disorder, unspecified (principal); R79.89 Other specified abnormal findings of blood chemistry; Z34.90 Encounter for supervision of normal pregnancy, unspecified, unspecified trimester
CPT/HCPCS: 36415; 82607; 84144; 84207; 84425